=== PATIENT | male | born 1960 | race Hispanic/Latino ===

== ENCOUNTER 2024-06-10 14:29 | Inpatient (IN) | payer BC, MEDICARE ==
[~2024-06-10] VITALS: Ht 172.7 cm; Wt 58.4 kg
[~2024-06-10 14:29] MED LIST: AMLO-257 PO; AMOX-426 PO; METO5TAB87 PO
[2024-06-10 15:01] LABS: BASOPHILS # (AUTO) 0.05 K/uL (0.00-0.20); BASOPHILS % (AUTO) 0.4 % (0.0-5.0); EOSINOPHILS # (AUTO) 0.02 K/uL (0.00-0.70); EOSINOPHILS % (AUTO) 0.2 % (0.0-8.0); HEMATOCRIT 36.4 % (42-54); IMMATURE GRANULOCYTE ABSOLUTE 0.06 K/uL (0-1); LYMPHOCYTES # (AUTO) 0.6 K/uL (1.0-4.8); LYMPHOCYTES % (AUTO) 4.7 % (21.0-51.0); MEAN CORPUSCULAR HEMOGLOBIN 22.2 pg (27.0-33.0); MEAN CORPUSCULAR HGB CONC 30.8 g/dL (32.0-36.0); MEAN CORPUSCULAR VOLUME 72.2 fL (79-99); MONOCYTES # (AUTO) 1.2 K/uL (0.1-1.0); MONOCYTES % (AUTO) 9.9 % (3.0-13.0); NEUTROPHILS # (AUTO) 10.3 K/uL (1.8-7.7); NEUTROPHILS % (AUTO) 84.3 % (40.0-77.0); PLATELET COUNT (AUTO) 272 K/uL (130-400); RED BLOOD CELL COUNT(AUTO) 5.04 MIL/uL (4.50-6.20); RED CELL DISTRIBUTION WIDTH 19.4 % (11.0-15.5); WHITE BLOOD COUNT (AUTO) 12.2 K/uL (4.8-10.8)
[2024-06-10 15:09] LABS: ABG BASE EXCESS -0.6 mmol/L (-2.0-3.0); ABG HCO3 23.5 mmol/L (21.0-28.0); ABG OXYGEN SATURATION 88.8 % (95.0-99.0); ABG PCO2 37 mmHg (35-48); ABG PH 7.419 (7.35-7.450); VENT MODE, BG RA (ROOM AIR)
[2024-06-10 15:11] LABS: CARBON DIOXIDE 28 mmol/L (21-32); CHLORIDE 105 mmol/L (101-111); CREATININE 1.7 mg/dL (0.5-1.3); GLOMERULAR FILTR. RATE CALC 44 mL/min (>90); GLUCOSE,RANDOM 308 mg/dL (70-105); POTASSIUM 4.4 mmol/L (3.5-5.1); SODIUM SERUM 140 mmol/L (136-145); UREA NITROGEN, BLOOD 37 mg/dL (7-18)
[2024-06-10] MEDS: IPRATROPIUM/ALBUTEROL SULFATE 3 ML SOLUTION IH ONE (15:15)
[2024-06-10 15:16] VITALS: PULSE 108; RESP 24
[2024-06-10 15:16] LABS: ALANINE AMINOTRANSFERASE 11 U/L (12-78); ALBUMIN 2.5 g/dL (3.5-5.0); ALCOHOL, BLOOD < 3 mg/dL (0-10); ASPARTATE AMINOTRANSFERASE 15 U/L (10-37); BILIRUBIN,TOTAL 0.5 mg/dL (0.2-1.0); TOTAL PROTEIN, SERUM 7.1 g/dL (6.0-8.3)
[2024-06-10 15:45] LABS: SARS-CoV-2, RNA, NAAT NEGATIVE SARS CoV-2 (NEGATIVE)
[2024-06-10 15:48] LABS: B-TYPE NATRIURETIC PEPTIDE 1800 pg/mL (0-100)
[2024-06-10 15:49] LABS: INFLUENZA TYPE A Negative For Type A (NEGATIVE); INFLUENZA TYPE B Negative For Type B (NEGATIVE)
[2024-06-10] MEDS: SOLU-MEDROL 125MG VIAL IVP ONE (16:16)
[2024-06-10] MEDS: 0.9% NACL 500ML IV.SOLN 500 ML IV ONE (16:16)
[2024-06-10] MEDS: CEFTRIAXONE 1G VIAL IVPB ONE (16:16)
[2024-06-10] MEDS: CEFTRIAXONE 1G VIAL IVPB SCH (17:30)
[2024-06-10] MEDS ORDERED: IOHEXOL 350 MG/ML 100ML INFUS..BTL IV ONE (17:30)
[2024-06-10] MEDS: HEPARIN 5,000 UNIT VIAL SQ SCH (18:33)
[2024-06-10] MEDS: FUROSEMIDE 40MG VIAL IV ONE (20:55)
[2024-06-10] MEDS: DOXYCYCLINE HYCLATE 100 MG TABLET PO SCH (20:55)
[2024-06-10 21:20] VITALS: BP 141/92; PULSE 125; RESP 22
[2024-06-10 22:00] VITALS: O2SAT 95
[2024-06-11] VITALS (16 sets, daily range): BP systolic 115–151; BP diastolic 52–111; PULSE 102–128; RESP 16–22; O2SAT 94
[2024-06-11 03:42] LABS: BASOPHILS # (AUTO) 0.01 K/uL (0.00-0.20); BASOPHILS % (AUTO) 0.1 % (0.0-5.0); HEMATOCRIT 37.8 % (42-54); IMMATURE GRANULOCYTE ABSOLUTE 0.05 K/uL (0-1); LYMPHOCYTES # (AUTO) 0.5 K/uL (1.0-4.8); LYMPHOCYTES % (AUTO) 5.1 % (21.0-51.0); MEAN CORPUSCULAR HEMOGLOBIN 22.4 pg (27.0-33.0); MEAN CORPUSCULAR HGB CONC 30.2 g/dL (32.0-36.0); MEAN CORPUSCULAR VOLUME 74.1 fL (79-99); MONOCYTES # (AUTO) 0.3 K/uL (0.1-1.0); MONOCYTES % (AUTO) 3.5 % (3.0-13.0); NEUTROPHILS % (AUTO) 90.7 % (40.0-77.0); PLATELET COUNT (AUTO) 247 K/uL (130-400); RED CELL DISTRIBUTION WIDTH 19.6 % (11.0-15.5); WHITE BLOOD COUNT (AUTO) 8.8 K/uL (4.8-10.8)
[2024-06-11 03:50] LABS: CREATININE 1.8 mg/dL (0.5-1.3); POTASSIUM 4.4 mmol/L (3.5-5.1)
[2024-06-11] MEDS ORDERED: ASPI-1005 PO (04:14)
[2024-06-11] MEDS ORDERED: FURO40TA5 PO (04:14)
[2024-06-11] MEDS: INSULIN LISPRO 100 UNIT/ML 3ML SQ SCH (06:36)
[2024-06-11] MEDS ORDERED: HYDRALAZINE 20MG/ML VIAL IV PRN (07:00)
[2024-06-11] MEDS ORDERED: ALBUTEROL 0.083% 2.5 MG/3 ML INH IH PRN (07:00)
[2024-06-11] MEDS ORDERED: DOCUSATE SODIUM 100 MG CAP PO PRN (07:00)
[2024-06-11] MEDS ORDERED: LACTULOSE 20 GM/30 ML UDCUP PO PRN (07:00)
[2024-06-11] MEDS ORDERED: LABETALOL 20MG SYG IV PRN (07:30)
[2024-06-11] MEDS ORDERED: FUROSEMIDE 40MG VIAL IV SCH (08:00)
[2024-06-11] MEDS: FUROSEMIDE 40MG VIAL IV SCH (09:00)
[2024-06-11 09:21] LABS: INR 1.06 (0.85-1.15); PROTHROMBIN TIME 11.4 SEC (9.6-11.6)
[2024-06-11 09:22] LABS: PARTIAL THROMBOPLASTIN TIME 28.9 SEC (26.3-35.5)
[2024-06-11] MEDS: PANTOPRAZOLE 40 MG TAB DR PO SCH (09:24)
[2024-06-11] MEDS: LOSARTAN 50 MG TABLET PO SCH (09:24)
[2024-06-11] MEDS: SODIUM CHLORIDE 3% FOR INHALATION 4 ML/AMP VIAL.NEB IH ONE (11:41)
[2024-06-11 16:30] LABS: GLUCOSE PLEURAL FLUID 200; PROTEIN PLEURAL FLUID 4.2 mg/dL
[2024-06-11 16:39] LABS: BODY FLUID RBC 8886 /cu. mm.; BODY FLUID WBC 785 /cu. mm.
[2024-06-11] MEDS: CEFTRIAXONE 2GM VIAL IVPB SCH (17:50)
[2024-06-11 18:12] LABS: BF LYMPHOCYTE 73 %; BF MACROPHAGE 7; BF TOTAL CELLS COUNTED 100
[2024-06-11 18:16] LABS: APPEARANCE BODY FLUID SLIGHTLY CLOUDY (CLEAR); COLOR,BODY FLUID YELLOW (LT YELLOW); SPECIMENTYPE,BODY FLUID PLEURAL; TOTAL VOLUME,BODY FLUID 1500 mL
[2024-06-11 18:19] LABS: PH PLEURAL FLUID 7
[2024-06-11] MEDS: HYDRALAZINE 25MG TABLET PO SCH (21:20)
[2024-06-11] MEDS: TEMAZEPAM 15 MG CAPSULE PO PRN (21:26)
[2024-06-12] VITALS (18 sets, daily range): BP systolic 88–154; BP diastolic 50–94; PULSE 78–109; RESP 11–27; O2SAT 98–100
[2024-06-12 03:51] LABS: BASOPHILS # (AUTO) 0.02 K/uL (0.00-0.20); BASOPHILS % (AUTO) 0.1 % (0.0-5.0); EOSINOPHILS # (AUTO) 0.03 K/uL (0.00-0.70); EOSINOPHILS % (AUTO) 0.2 % (0.0-8.0); HEMATOCRIT 36.1 % (42-54); IMMATURE GRANULOCYTE ABSOLUTE 0.05 K/uL (0-1); LYMPHOCYTES # (AUTO) 1.2 K/uL (1.0-4.8); LYMPHOCYTES % (AUTO) 8.6 % (21.0-51.0); MEAN CORPUSCULAR HEMOGLOBIN 22.4 pg (27.0-33.0); MEAN CORPUSCULAR HGB CONC 31.3 g/dL (32.0-36.0); MEAN CORPUSCULAR VOLUME 71.5 fL (79-99); MONOCYTES # (AUTO) 1.1 K/uL (0.1-1.0); MONOCYTES % (AUTO) 8.3 % (3.0-13.0); NEUTROPHILS # (AUTO) 11.1 K/uL (1.8-7.7); NEUTROPHILS % (AUTO) 82.4 % (40.0-77.0); PLATELET COUNT (AUTO) 271 K/uL (130-400); RED BLOOD CELL COUNT(AUTO) 5.05 MIL/uL (4.50-6.20); RED CELL DISTRIBUTION WIDTH 19.1 % (11.0-15.5); WHITE BLOOD COUNT (AUTO) 13.5 K/uL (4.8-10.8)
[2024-06-12 04:12] LABS: CREATININE 1.7 mg/dL (0.5-1.3); MAGNESIUM 1.6 mg/dL (1.80-2.40); POTASSIUM 3.7 mmol/L (3.5-5.1); TOTAL PROTEIN, SERUM 6.1 g/dL (6.0-8.3)
[2024-06-12 04:54] LABS: B-TYPE NATRIURETIC PEPTIDE 954 pg/mL (0-100)
[2024-06-12] MEDS ORDERED: POTASSIUM CHLORIDE 10MEQ/100ML 100 ML IV PRN ×2 (05:30)
[2024-06-12] MEDS ORDERED: POTASSIUM CHLORIDE 10% ELIXIR 20 MEQ/15 ML UDCUP PO PRN (05:30)
[2024-06-12] MEDS: MAGNESIUM 2GM PREMIX 50ML 50 ML IV PRN (05:56)
[2024-06-12] MEDS: KCL 20 MEQ ERTAB PO PRN (05:57)
[2024-06-12] MEDS ORDERED: POTASSIUM CHLORIDE 10MEQ SR TAB PO PRN (07:30)
[2024-06-12] MEDS: METOPROLOL TARTRATE 50 MG TAB PO SCH (08:19)
[2024-06-12] MEDS: METOPROLOL TARTRATE 1 MG/ML 5ML VIAL IV ONE (08:19)
[2024-06-12] MEDS: APIXABAN 2.5 MG TABLET PO SCH (08:23)
[2024-06-12 11:59] LABS: HEMATOCRIT 38.8 % (42-54)
[2024-06-12] MEDS: ONDANSETRON 4MG INJ IVP PRN (13:40)
[2024-06-12] MEDS ORDERED: PHARMACY COMMUNICATION MISC SCH (14:30)
[2024-06-12] MEDS ORDERED: COMPOUND PO MISCELLANEOUS 1 EACH MISC MISC PRN (14:30)
[2024-06-12] MEDS: LIDO 2% VISC 30ML+MAG/AL/SIMETH 30ML+DICYCLOMINE 20MG 10ML PO PRN (14:36)
[2024-06-12 15:28] LABS: HEMATOCRIT 38.8 % (42-54)
[2024-06-12] MEDS ORDERED: ONDANSETRON 4MG INJ IV PRN (17:00)
[2024-06-12] MEDS ORDERED: LORAZEPAM 2 MG/ML 1 ML VIAL IVP PRN (17:00)
[2024-06-12] MEDS ORDERED: CHLORDIAZEPOXIDE HCL 25 MG CAP PO PRN (17:00)
[2024-06-12] MEDS ORDERED: ACETAMINOPHEN 500 MG TABLET PO PRN (17:00)
[2024-06-12] MEDS ORDERED: PROMETHAZINE HCL 25 MG TABLET PO PRN (17:00)
[2024-06-12] MEDS ORDERED: PHARMACY COMMUNICATION MISC PRN (17:00)
[2024-06-12] MEDS: LORAZEPAM 2 MG/ML 1 ML VIAL IVP PRN (17:20)
[2024-06-12 20:00] LABS: HEMATOCRIT 39.6 % (42-54)
[2024-06-12 20:29] LABS: CREATININE 1.9 mg/dL (0.5-1.3); POTASSIUM 4.2 mmol/L (3.5-5.1)
[2024-06-12 20:36] LABS: MAGNESIUM 1.7 mg/dL (1.80-2.40)
[2024-06-12 21:13] LABS: APPEARANCE,URINE CLEAR (CLEAR); BILIRUBIN,URINE NEGATIVE (NEGATIVE); COLOR,URINE LIGHT-YELLOW (YELLOW); GLUCOSE, URINE (UA) NEGATIVE (NEGATIVE); KETONES,URINE NEGATIVE (NEGATIVE); LEUKOCYTE ESTERASE ,URINE NEGATIVE Leu/uL (NEGATIVE); NITRATE,URINE NEGATIVE (NEGATIVE); OCCULT BLOOD,URINE NEGATIVE (NEGATIVE); PROTEIN,URINE 50 mg/dL (NEGATIVE); UROBILINOGEN,URINE 0.2 mg/dL (0.2-1.0)
[2024-06-12] MEDS: DEXMEDETOMIDINE 400MCG/NS100ML IV SCH (21:19)
[2024-06-12 21:20] LABS: ADD UA MICROSCOPIC YES
[2024-06-12 21:25] LABS: MUCUS,URINE RARE LPF (None Seen); RBC,URINE 0-1 /HPF (0-1); SQUAMOUS EPITHELIAL CELL,UR RARE /HPF (0-2); WBC,URINE 0-1 /HPF (0-1)
[2024-06-12 22:45] LABS: AMPHET/METH SCREEN,URINE NEGATIVE (NEGATIVE); BARBITURATE SCREEN, URINE NEGATIVE (NEGATIVE); BENZODIAZEPINES SCREEN,URINE NEGATIVE (NEGATIVE); CANNABINOID SCREEN,URINE NEGATIVE (NEGATIVE); COCAINE SCREEN,URINE POSITIVE (NEGATIVE); OPIATE SCREEN,URINE NEGATIVE (NEGATIVE); PHENCYCLIDINE SCREEN,URINE NEGATIVE (NEGATIVE)
[2024-06-13] VITALS (106 sets, daily range): BP systolic 75–129; BP diastolic 39–75; PULSE 74–96; RESP 9–32; O2SAT 99–100
[2024-06-13 04:14] LABS: BASOPHILS # (AUTO) 0.01 K/uL (0.00-0.20); BASOPHILS % (AUTO) 0.1 % (0.0-5.0); EOSINOPHILS # (AUTO) 0.01 K/uL (0.00-0.70); EOSINOPHILS % (AUTO) 0.1 % (0.0-8.0); HEMATOCRIT 37.7 % (42-54); IMMATURE GRANULOCYTE ABSOLUTE 0.05 K/uL (0-1); LYMPHOCYTES # (AUTO) 0.7 K/uL (1.0-4.8); LYMPHOCYTES % (AUTO) 5.8 % (21.0-51.0); MEAN CORPUSCULAR HEMOGLOBIN 22.1 pg (27.0-33.0); MEAN CORPUSCULAR HGB CONC 31.3 g/dL (32.0-36.0); MEAN CORPUSCULAR VOLUME 70.5 fL (79-99); MONOCYTES # (AUTO) 0.8 K/uL (0.1-1.0); MONOCYTES % (AUTO) 6.5 % (3.0-13.0); NEUTROPHILS % (AUTO) 87.1 % (40.0-77.0); PLATELET COUNT (AUTO) 224 K/uL (130-400); RED BLOOD CELL COUNT(AUTO) 5.35 MIL/uL (4.50-6.20); RED CELL DISTRIBUTION WIDTH 19.1 % (11.0-15.5); WHITE BLOOD COUNT (AUTO) 12.6 K/uL (4.8-10.8)
[2024-06-13 04:33] LABS: CREATININE 1.9 mg/dL (0.5-1.3); MAGNESIUM 2.3 mg/dL (1.80-2.40); PHOSPHORUS 4.5 mg/dL (2.5-4.9); POTASSIUM 4.1 mmol/L (3.5-5.1)
[2024-06-13 04:36] LABS: B-TYPE NATRIURETIC PEPTIDE 1430 pg/mL (0-100)
[2024-06-13] MEDS: 0.9%NACL 1000ML 1,000 ML IV SCH (06:45)
[2024-06-13] MEDS: THIAMINE HCL 100 MG/ML 2ML VIAL IV SCH (08:16)
[2024-06-13] MEDS ORDERED: NOREPINEPHRIN 4MG/NS 250ML 250 ML IV SCH (09:00)
[2024-06-13] MEDS: FOLIC ACID 1 MG TABLET PO SCH (09:00)
[2024-06-13] MEDS: MULTIVITAMIN TABLET PO SCH (09:00)
[2024-06-13] MEDS ORDERED: FUROSEMIDE 40MG VIAL IV SCH (09:00)
[2024-06-13] MEDS: M.V.I. IV [ADULT] 10 ML, FOLIC ACID 1 MG, THIAMINE HCL 100 MG in 0.9%NACL 1000ML 1,000 ML IV SCH (09:29)
[2024-06-13] MEDS ORDERED: PHENYLEPHRINE HCL 10 MG in 0.9% NACL 250ML 250 ML IV PRN (09:30)
[2024-06-13 09:34] LABS: ABG BASE EXCESS 3.3 mmol/L (-2.0-3.0); ABG HCO3 27.7 mmol/L (21.0-28.0); ABG OXYGEN SATURATION 93.8 % (95.0-99.0); ABG PCO2 42 mmHg (35-48); ABG PH 7.443 (7.35-7.450); CARBON MONOXIDE 0.2; DEVICE COMMENT RB; HHb 6.2; PO2, ARTERIAL BG 75.1 mmHg (83.0-108.0); VENT MODE, BG ROOM AIR (ROOM AIR)
[2024-06-13] MEDS: ZOSYN 3.375GM +NS 50ML IV SCH (10:30)
[2024-06-13] MEDS ORDERED: COMPOUND IV MISC 1 EACH IVSOLN MISC PRN (11:30)
[2024-06-13] MEDS ORDERED: COMPOUND IV REFRIGERATED 1 EACH IVSOLN MISC PRN ×2 (11:30→12:30)
[2024-06-13] MEDS: DOXYCYCLINE 100MG+NS 250ML 250 ML IV SCH (17:02)
[2024-06-13] MEDS: HEPARIN 5,000 UNIT VIAL SQ SCH (17:04)
[2024-06-13] MEDS: MIDODRINE HCL 5 MG TABLET PO SCH (20:09)
[2024-06-14] VITALS (13 sets, daily range): BP systolic 125–142; BP diastolic 71–97; PULSE 60–92; RESP 18–22; O2SAT 99–100
[2024-06-14 04:58] LABS: BASOPHILS # (AUTO) 0.06 K/uL (0.00-0.20); BASOPHILS % (AUTO) 0.6 % (0.0-5.0); HEMATOCRIT 36.3 % (42-54); IMMATURE GRANULOCYTE ABSOLUTE 0.05 K/uL (0-1); LYMPHOCYTES # (AUTO) 1.2 K/uL (1.0-4.8); LYMPHOCYTES % (AUTO) 11.4 % (21.0-51.0); MEAN CORPUSCULAR HEMOGLOBIN 22.3 pg (27.0-33.0); MEAN CORPUSCULAR HGB CONC 30.9 g/dL (32.0-36.0); MEAN CORPUSCULAR VOLUME 72.2 fL (79-99); MONOCYTES # (AUTO) 0.9 K/uL (0.1-1.0); MONOCYTES % (AUTO) 8.3 % (3.0-13.0); NEUTROPHILS # (AUTO) 8.1 K/uL (1.8-7.7); NEUTROPHILS % (AUTO) 78.2 % (40.0-77.0); PLATELET COUNT (AUTO) 231 K/uL (130-400); RED BLOOD CELL COUNT(AUTO) 5.03 MIL/uL (4.50-6.20); RED CELL DISTRIBUTION WIDTH 18.9 % (11.0-15.5); WHITE BLOOD COUNT (AUTO) 10.3 K/uL (4.8-10.8)
[2024-06-14 05:10] LABS: CREATININE 1.7 mg/dL (0.5-1.3); MAGNESIUM 2.2 mg/dL (1.80-2.40); PHOSPHORUS 3.6 mg/dL (2.5-4.9)
[2024-06-14 06:14] LABS: B-TYPE NATRIURETIC PEPTIDE 841 pg/mL (0-100)
[2024-06-14] MEDS: IPRATROPIUM 0.5 MG/2.5 ML INH IH PRN (13:07)
[2024-06-14] MEDS ORDERED: LORAZEPAM 2 MG/ML 1 ML VIAL IVP PRN (19:00)
[2024-06-15] VITALS (9 sets, daily range): BP systolic 124–134; BP diastolic 64–74; PULSE 48–98; RESP 18–20; O2SAT 90–96
[2024-06-15 04:08] LABS: HEMATOCRIT 38.7 % (42-54); MEAN CORPUSCULAR HGB CONC 30.7 g/dL (32.0-36.0); MEAN CORPUSCULAR VOLUME 71.5 fL (79-99); RED BLOOD CELL COUNT(AUTO) 5.41 MIL/uL (4.50-6.20); RED CELL DISTRIBUTION WIDTH 19.6 % (11.0-15.5); WHITE BLOOD COUNT (AUTO) 7.8 K/uL (4.8-10.8)
[2024-06-15 04:29] LABS: BILIRUBIN,TOTAL 0.4 mg/dL (0.2-1.0); CREATININE 1.4 mg/dL (0.5-1.3); MAGNESIUM 2.1 mg/dL (1.80-2.40); POTASSIUM 4.2 mmol/L (3.5-5.1)
[2024-06-15] MEDS: ALPRAZOLAM 0.5 MG TABLET PO PRN (15:01)
[2024-06-16] VITALS (23 sets, daily range): BP systolic 100–179; BP diastolic 50–92; PULSE 48–96; RESP 16–20; O2SAT 95–99
[2024-06-16 03:30] LABS: MEAN CORPUSCULAR HEMOGLOBIN 22.2 pg (27.0-33.0); MEAN CORPUSCULAR HGB CONC 30.3 g/dL (32.0-36.0); MEAN CORPUSCULAR VOLUME 73.4 fL (79-99); RED BLOOD CELL COUNT(AUTO) 5.04 MIL/uL (4.50-6.20); WHITE BLOOD COUNT (AUTO) 6.5 K/uL (4.8-10.8)
[2024-06-16 03:42] LABS: CREATININE 1.3 mg/dL (0.5-1.3); POTASSIUM 4.3 mmol/L (3.5-5.1)
[2024-06-16] MEDS: DEXTROSE 50%-WATER 50 ML DISP.SYRIN IV ONE (06:05)
[2024-06-16] MEDS ORDERED: LIDOCAINE PF 100MG/5ML (2%) SYRINGE 5ML ONE (12:53)
[2024-06-16] MEDS ORDERED: PROPOFOL 10 MG/ML 20ML VIAL IV ONE (12:53)
[2024-06-16] MEDS: SILVER NITRATE APPLICATOR 1 SWAB TP SCH (14:00)
[2024-06-16] MEDS: ACETAMINOPHEN 325 MG TAB PO PRN (15:28)
[2024-06-16] MEDS: HYDROCODONE/ACETAMINOPHEN 5/325 MG TAB PO PRN (16:49)
[2024-06-16] MEDS ORDERED: GLUCAGON 1MG KIT 1 MG ML IM PRN (19:00)
[2024-06-16] MEDS: LANSOPRAZOLE 15 MG SOLU TAB PEG SCH (21:34)
[2024-06-17] VITALS (8 sets, daily range): BP systolic 132–160; BP diastolic 74–89; PULSE 67–101; RESP 16–20; O2SAT 99
[2024-06-17] MEDS: INSULIN LISPRO 100 UNIT/ML 3ML SQ SCH
[2024-06-17] MEDS: DEXTROSE 50%-WATER 50 ML DISP.SYRIN IV PRN (00:10)
[2024-06-17 03:46] LABS: HEMATOCRIT 37.8 % (42-54); MEAN CORPUSCULAR HEMOGLOBIN 21.8 pg (27.0-33.0); MEAN CORPUSCULAR HGB CONC 30.2 g/dL (32.0-36.0); MEAN CORPUSCULAR VOLUME 72.3 fL (79-99); RED BLOOD CELL COUNT(AUTO) 5.23 MIL/uL (4.50-6.20); RED CELL DISTRIBUTION WIDTH 19.1 % (11.0-15.5); WHITE BLOOD COUNT (AUTO) 7.8 K/uL (4.8-10.8)
[2024-06-17 04:21] LABS: ALBUMIN 2.1 g/dL (3.5-5.0); BILIRUBIN,TOTAL 0.4 mg/dL (0.2-1.0); CREATININE 1.4 mg/dL (0.5-1.3); MAGNESIUM 2.1 mg/dL (1.80-2.40); THYROID STIMULATING HORMONE 2.29 uIU/mL (0.36-3.74)
[2024-06-17] MEDS: APIXABAN 2.5 MG TABLET PO SCH (20:32)
[2024-06-17] MEDS ORDERED: APIXABAN 2.5 MG TABLET PO SCH (21:00)
[2024-06-17] MEDS: HYDROCODONE/ACETAMINOPHEN 5/325 MG TAB PO PRN (21:12)
[2024-06-17] MEDS: CHLORDIAZEPOXIDE HCL 25 MG CAP PO PRN (22:53)
[2024-06-18 04:02] VITALS: BP 145/74; PULSE 79; RESP 20
[2024-06-18 04:05] LABS: HEMATOCRIT 35.6 % (42-54); MEAN CORPUSCULAR HEMOGLOBIN 21.6 pg (27.0-33.0); MEAN CORPUSCULAR HGB CONC 30.3 g/dL (32.0-36.0); MEAN CORPUSCULAR VOLUME 71.2 fL (79-99); PLATELET COUNT (AUTO) 167 K/uL (130-400); WHITE BLOOD COUNT (AUTO) 6.4 K/uL (4.8-10.8)
[2024-06-18 04:19] LABS: CREATININE 1.3 mg/dL (0.5-1.3); MAGNESIUM 1.9 mg/dL (1.80-2.40); POTASSIUM 4.1 mmol/L (3.5-5.1)
[2024-06-18] MEDS: APIXABAN 5 MG TABLET PO SCH (07:36)
[2024-06-18 08:00] VITALS: O2SAT 99
[2024-06-18 08:13] VITALS: BP 133/63; PULSE 83; RESP 18
[2024-06-18 12:39] VITALS: BP 117/68; PULSE 91; RESP 18
[2024-06-18 16:00] VITALS: BP 152/70; PULSE 48; RESP 18
[2024-06-18 20:00] VITALS: BP 150/76; PULSE 53; RESP 18
[2024-06-19 00:30] VITALS: BP 134/74; PULSE 59; RESP 18
[2024-06-19 03:42] LABS: HEMATOCRIT 36.9 % (42-54); MEAN CORPUSCULAR HEMOGLOBIN 22.1 pg (27.0-33.0); MEAN CORPUSCULAR HGB CONC 30.9 g/dL (32.0-36.0); MEAN CORPUSCULAR VOLUME 71.4 fL (79-99); RED BLOOD CELL COUNT(AUTO) 5.17 MIL/uL (4.50-6.20); RED CELL DISTRIBUTION WIDTH 19.3 % (11.0-15.5); WHITE BLOOD COUNT (AUTO) 7.7 K/uL (4.8-10.8)
[2024-06-19 04:04] LABS: CREATININE 1.3 mg/dL (0.5-1.3); MAGNESIUM 2.2 mg/dL (1.80-2.40); POTASSIUM 4.4 mmol/L (3.5-5.1)
[2024-06-19 04:30] VITALS: BP 142/80; PULSE 52; RESP 18
[2024-06-19 08:07] VITALS: BP 127/78; PULSE 71; RESP 18
[2024-06-19 08:33] VITALS: O2SAT 100
[2024-06-19 12:14] VITALS: BP 146/75; PULSE 97; RESP 18
== END 2024-06-19 16:00 | DRG 871 ==
LOC: EDH 14:29 → EDHIP 17:16 → 2AH 21:10 → 2BH 06-12 18:56 → 2DH 06-13 23:38 → 2BH 06-13 23:47 → 2DH 06-14 00:15
PROVIDERS: ADMIT Internal Medicine Infectious Disease; ATTEND Internal Medicine Infectious Disease
PROC: 0W9B3ZZ Drainage of Left Pleural Cavity, Percutaneous Approach (ICD-10-PCS; 2024-06-11)
PROC: 0DH63UZ Insertion of Feeding Device into Stomach, Percutaneous Approach (ICD-10-PCS; principal; 2024-06-16)
DX: A41.9 Sepsis, unspecified organism (principal); I50.43 Acute on chronic combined systolic (congestive) and diastolic (congestive) heart failure; J96.21 Acute and chronic respiratory failure with hypoxia; J69.0 Pneumonitis due to inhalation of food and vomit; J98.11 Atelectasis; N17.9 Acute kidney failure, unspecified; E87.3 Alkalosis; E46 Unspecified protein-calorie malnutrition; F03.94 Unspecified dementia, unspecified severity, with anxiety; F14.23 Cocaine dependence with withdrawal; I13.0 Hypertensive heart and chronic kidney disease with heart failure and stage 1 through stage 4 chronic kidney disease, or unspecified chronic kidney disease; I47.19 Other supraventricular tachycardia; I48.92 Unspecified atrial flutter; Z68.1 Body mass index [BMI] 19.9 or less, adult; J91.8 Pleural effusion in other conditions classified elsewhere; R18.8 Other ascites; Z20.822 Contact with and (suspected) exposure to COVID-19; R65.20 Severe sepsis without septic shock; E11.65 Type 2 diabetes mellitus with hyperglycemia; N18.32 Chronic kidney disease, stage 3b; E11.22 Type 2 diabetes mellitus with diabetic chronic kidney disease; D63.1 Anemia in chronic kidney disease; E88.09 Other disorders of plasma-protein metabolism, not elsewhere classified; D72.829 Elevated white blood cell count, unspecified; E11.51 Type 2 diabetes mellitus with diabetic peripheral angiopathy without gangrene; Z79.899 Other long term (current) drug therapy; K29.70 Gastritis, unspecified, without bleeding; D50.9 Iron deficiency anemia, unspecified; D63.8 Anemia in other chronic diseases classified elsewhere; E78.00 Pure hypercholesterolemia, unspecified; I48.91 Unspecified atrial fibrillation; Z63.4 Disappearance and death of family member; Z79.01 Long term (current) use of anticoagulants; Z83.3 Family history of diabetes mellitus; Z93.1 Gastrostomy status; K20.90 Esophagitis, unspecified without bleeding
CPT/HCPCS: 10030; 36415; 36600; 43246; 70450; 71045; 71046; 71250; 71270; 74230; 76775; 76942; 80048; 80053; 80305; 81001; 82435; 82803; 82945; 82947; 82948; 83036; 83605; 83615; 83735; 83880; 83986; 84100; 84132; 84145; 84155; 84157; 84295; 84439; 84443; 84481; 84484; 85014; 85018; 85025; 85027; 85378; 85610; 85730; 87071; 87116; 87205; 87206; 87635; 87804; 88112; 88305; 89051; 92507; 92610; 92611; 93005; 93306; 93356; 93970; 94640; A4606; G0378; J0696; J1644; J1940; J2001; J2060; J2405; J2543; J2704; J2919; J3411; J3475; J3490; J7030; J7040; J7070; Q9967; A4215; A4222; A4223; A4620; A4657; A7002; C1729; C1769

== ENCOUNTER 2024-09-10 22:00 | Inpatient (IN) | payer MEDICARE ==
[~2024-09-10] VITALS: Ht 175.3 cm; Wt 57.2 kg
[~2024-09-10 22:00] MED LIST changes: +AMIN30LI28 PO; -AMLO-257 PO; -AMOX-426 PO; +APIX5TAB PO; +CALA177S9 TP; +CLOT15CR23 TP; +DOCU100C33 PO; +FERS325 PO; +MELA5CAP PO; +METO-408 PO; -METO5TAB87 PO; +MULT-1367 PO; +MUPI15CR12 TP; +OMEP40CA21 PO; +SIME80TA12 PO; +[UNRECOGNIZED DRUG - CODE] PO
[2024-09-10] MEDS ORDERED: LACTATED RINGERS 1000ML 1,000 ML IV ONE (22:30)
[2024-09-10 22:43] LABS: IMMATURE GRANULOCYTE ABSOLUTE 0.02 K/uL (0-1); LYMPHOCYTES # (AUTO) 0.2 K/uL (1.0-4.8); LYMPHOCYTES % (AUTO) 5.8 % (21.0-51.0); MEAN CORPUSCULAR HGB CONC 35.8 g/dL (32.0-36.0); MEAN CORPUSCULAR VOLUME 78.2 fL (79-99); MONOCYTES # (AUTO) 0.4 K/uL (0.1-1.0); MONOCYTES % (AUTO) 15.9 % (3.0-13.0); NEUTROPHILS % (AUTO) 77.5 % (40.0-77.0); PLATELET COUNT (AUTO) 81 K/uL (130-400); RED BLOOD CELL COUNT(AUTO) 2.61 MIL/uL (4.50-6.20); RED CELL DISTRIBUTION WIDTH 15.4 % (11.0-15.5); WHITE BLOOD COUNT (AUTO) 2.6 K/uL (4.8-10.8)
[2024-09-10 22:50] LABS: HEMATOCRIT 20.4 % (42-54)
[2024-09-10 22:55] LABS: CREATININE 1.9 mg/dL (0.5-1.3); POTASSIUM 4.7 mmol/L (3.5-5.1)
[2024-09-10 23:25] LABS: B-TYPE NATRIURETIC PEPTIDE 2350 pg/mL (0-100)
[2024-09-10 23:43] LABS: BAND NEUTROPHILS % (MANUAL) 33 % (0-2); LYMPHOCYTES % (MANUAL) 13 % (22-44); METAMYELOCYTES % 8 % (0-0); MONOCYTES % (MANUAL) 8 % (2-9); SEGMENTED NEUTROPHILS % 38 % (40-70); TOTAL CELLS COUNTED 100
--- NOTE | 2024-09-10 23:51 | ERN ---
General Chief Complaint: Shortness of Breath Stated Complaint: SOB Time Seen by MD: 22:04 History of Present Illness Initial Comments Mr Link is a 64-year-old male significant past medical history of iron deficiency anemia, calcium deficiency, insomnia, GERD, chronic dysphagia who presents today with here with shortness of breath. Patient was from the [facility] and has a history of aspiration. Patient apparently drank some water in had worsening work of breathing tonight. Patient apparently had EMS called after he was found to have sats in the 70s. Patient upon presentation had a sodium of 108 and an elevated troponin. Patient's chest x-ray looks he has by hilar upper and lower infiltrates Allergies: Coded Allergies: No Known Allergies (Verified Allergy, Unknown, 12/08/14) sucralfate (Unverified Allergy, Unknown, 09/10/24) Home Meds Reported Medications Multivitamin (Multivitamin) 1 Each Tablet, 1 EACH PO DAILY, TAB 08/17/24 Calamine/Zinc Oxide (Calamine Lotion) 8 %-8 % Lotion, 177 ML TP Q12H, APPL 08/17/24 Apixaban (Eliquis) 5 Mg Tablet, 5 MG PO Q12H, TAB 08/17/24 Clotrimazole (Clotrimazole) 1 % Cream..g., 15 GM TP DAILY 08/17/24 Ferrous Sulfate (Ferrous Sulfate) 325 Mg (65 Mg Iron) Ectab, 325 MG PO DAILY, TAB.EC 08/17/24 Calcium/D3/Mag Ox/Foundation Relations Director/Jerry/Zn (Caltrate 432-M1-Ntezdfzd Tab) 600 Mg-20 Tablet, 1 EACH PO DAILY, TAB 08/17/24 Amino Acids/Protein Hydrolys (Pro-Stat Liquid) 15 Gram-100 Kcal/30 Ml Liquid, 30 ML PO TID 08/17/24 Metoprolol Succinate (Metoprolol Succinate) 25 Mg Tab.er.24h, 25 MG PO DAILY, TAB 08/17/24 Docusate Sodium (Docusate Sodium) 100 Mg Capsule, 100 MG PO BID, CAP 08/17/24 Melatonin (Melatonin) 5 Mg Capsule, 5 MG PO HS, CAP 08/17/24 Omeprazole (Omeprazole) 40 Mg Capsule.dr, 40 MG PO DAILY, CAP 08/17/24 Mupirocin Calcium (Mupirocin) 2 % Cream..g., 15 GM TP BID 08/17/24 Simethicone (Simethicone) 80 Mg Tab.chew, 80 MG PO TID, TAB.CHEW 08/17/24 Past Medical History Past Medical History: A-Fib, Alcoholism, CHF, Diabetes-Type II, GERD, High Cholesterol, Hypertension, Renal Disese, Other Medical History Other: NEUROPATHY, COCAINE ABUSE, NICOTINE DEPENDENCE, PVD Past Surgical History: Other Social History Social History: Drugs ROS Dictation Twelve point review of systems can not be done given patient's altered mental status Physical Exam Physical Exam Dictation General: Confused, lethargic Head/Face: Normocephalic, atraumatic Eyes: PERRL ENT: oral cavity clear Neck: Trachea midline, supple Cardiovascular: RRR, normal S1/S2, No MRGs, no JVD Respiratory: CTAB, no respiratory distress, No rales or wheezes Abdomen: Soft, non-tender, non-distended, normal bowel sounds Skin: Warm, dry, normal turgor, no rash MS/Extremity: Pulses equal Neuro: Responds to noxious stimuli, lethargic Results Laboratory and Microbiology Lab and Micro Result Laboratory Tests Test 09/10/24 22:29 White Blood Count 2.6 K/uL (4.8-10.8) L Red Blood Count 2.61 MIL/uL (4.50-6.20) L Hemoglobin 7.3 g/dL (14.0-18.0) L Hematocrit 20.4 % (42-54) *L Mean Corpuscular Volume 78.2 fL (79-99) L Mean Corpuscular Hemoglobin 28.0 pg (27.0-33.0) Mean Corpuscular Hemoglobin Concent 35.8 g/dL (32.0-36.0) Red Cell Distribution Width 15.4 % (11.0-15.5) Platelet Count 81 K/uL (130-400) L Mean Platelet Volume 9.9 fL (7.5-10.5) Immature Granulocyte % (Auto) 0.8 % (0-1) Neutrophils (%) (Auto) 77.5 % (40.0-77.0) H Lymphocytes (%) (Auto) 5.8 % (21.0-51.0) L Monocytes (%) (Auto) 15.9 % (3.0-13.0) H Eosinophils (%) (Auto) 0.0 % (0.0-8.0) Basophils (%) (Auto) 0.0 % (0.0-5.0) Neutrophils # (Auto) 2.0 K/uL (1.8-7.7) Lymphocytes # (Auto) 0.2 K/uL (1.0-4.8) L Monocytes # (Auto) 0.4 K/uL (0.1-1.0) Eosinophils # (Auto) 0.00 K/uL (0.00-0.70) Basophils # (Auto) 0.00 K/uL (0.00-0.20) Absolute Immature Granulocyte (auto 0.02 K/uL (0-1) Nucleated Red Blood Cells 0.0 % (0.0-0.19) Sodium Level 108 mmol/L (136-145) *L Potassium Level 4.7 mmol/L (3.5-5.1) Chloride Level 74 mmol/L (101-111) *L Carbon Dioxide Level 23 mmol/L (21-32) Blood Urea Nitrogen 54 mg/dL (7-18) H Creatinine 1.9 mg/dL (0.5-1.3) H Glomerular Filtration Rate Calc 38 mL/min (>90) Random Glucose 305 mg/dL (70-105) H Total Calcium 8.0 mg/dL (8.5-10.1) L Total Creatine Kinase 73 U/L (21-232) # Troponin I High Sensitivity 85 ng/L (4-75) *H B-Type Natriuretic Peptide 2350 pg/mL (0-100) H MDM Patient will be started on 3% normal saline. Patient will be admitted to the ICU given multiple electrolyte derangements and hypoxic respiratory failure MDM: Differential diagnosis: Hyponatremia Rationale: Tests considered and ordered secondary to shared decision making include: labs, ECG and radiology Previous outside records reviewed: Old ER visits. Risk of complication and/or morbidity or mortality of patient management: None Medications-Per medication reconciliation Need for hospitalization: Patient does meet criteria for hospitalization. Need for emergency major/minor surgery: No There are no social concerns with this patient. Prescription drug management Prescriptions will include symptomatic care Patient's prior external medical records from other ER visits were reviewed by me as indicated. Prior testing and results from previous visits were reviewed. Prior tests were taken into account with medical decision making and resource utilization, independent historian/historians were used to obtain complete medical history. I independently interpreted the test that were performed, results were reviewed by me and considered findings on radiology if ordered. Medical management and examination interpretation discussions were had by me with other qualified healthcare professionals as indicated for the patient's care. ED Course Orders Procedure Category Date Status Time Cbc With Differential LAB 09/10/24 In Process 22:15 B-Type Natriuretic LAB 09/10/24 In Process Peptide 22:15 Cardiac Panel LAB 09/10/24 Complete 22:15 Chest 1vw RAD 09/10/24 Taken 22:15 12 Lead Ekg Tracing- EKG 09/10/24 Logged Technical 22:15 Lactated Ringers PHA 09/10/24 Complete 1000ml (Lactated 22:30 Basic Metabolic Panel LAB 09/10/24 Complete 22:15 Manual Differential LAB 09/10/24 In Process 22:29 Sodium Chloride 3% PHA 09/10/24 In Process (Sodium Chloride 3 %) 23:30 Zosyn 3.375gm+Ns 50ml PHA 09/10/24 In Process (Zosyn 3.375gm+Ns 23:30 Vancomycin 1g/250ml PHA 09/10/24 Complete Kit (Vancomycin 1g/2 23:30 Insulin Regular, PHA 09/11/24 Complete Human 3ml (Humulin R 00:00 Vital Signs(Adult CPOE 09/11/24 Transmitted Hospitalist) 00:22 Nurse To Enter Home CPOE 09/11/24 Transmitted Medication 00:22 Admit Orders ADM 09/11/24 Transmitted 00:22 Critcal Care Consult CONPHYSVC 09/11/24 Transmitted 00:22 Current Medications Medications (Trade) Dose Ordered Sig/Elenita Route PRN Reason Start Time Stop Time Status Last Admin Dose Admin Insulin Human Regular (humuLIN R 100 UNIT/ML 3ML) 10 unit ONCE ONCE SQ 09/11/24 00:00 09/11/24 00:01 DC 09/11/24 00:07 Lactated Ringer's 1,000 ml @ 125 mls/hr ONCE ONCE IV 09/10/24 22:30 09/10/24 23:34 DC Piperacillin Sod/ Tazobactam Sod (Zosyn 3.375gm+NS 50ml) 3.375 gm Q12H IVPB 09/10/24 23:30 09/20/24 23:29 09/11/24 00:16 Sodium Chloride 100 ml @ 0 mls/hr PROTOCOL IV 09/10/24 23:30 10/10/24 23:29 09/10/24 23:52 Vancomycin HCl (Vancomycin 1g/ 250ml Kit) 1 gm ONCE ONCE IV 09/10/24 23:30 09/10/24 23:40 DC 09/10/24 23:52 Vital Signs Date Time Temp Pulse Resp B/P (MAP) Pulse Ox O2 Delivery O2 Flow Rate FiO2 09/10/24 23:42 94 32 120/55 96 Nasal Cannula* 4 36 09/10/24 22:45 98.8 90 26 116/47 98 Non-Rebreather+ 15 100 09/10/24 22:04 99.0 99 20 101/64 95 Nonrebreathing Mask DX & DISP Disposition: Inpatient Departure Impression: Primary Impression: Hyponatremia Additional Impression: Acute hypoxic respiratory failure Condition: Stable Referrals: MARKOS JORGENSEN MD (PCP) SHAHRIAR FRANCO MD Sep 10, 2024 23:51
[2024-09-10] MEDS: VANCOMYCIN KIT 1 GM/250 ML IV.KIT IV ONE (23:52)
[2024-09-10] MEDS: SODIUM CHLORIDE 3% 100 ML IV SCH (23:52)
[2024-09-11] VITALS (37 sets, daily range): BP systolic 105–144; BP diastolic 41–90; PULSE 85–116; RESP 14–29; TEMP 97.2–97.8; O2SAT 94–96
[2024-09-11] MEDS: INSULIN humuLIN R 100 UNIT/ML 3ML SQ ONE (00:07)
[2024-09-11] MEDS: ZOSYN 3.375GM +NS 50ML IVPB SCH (00:16)
[2024-09-11 01:06] LABS: MAN.DIFF COMMENT-IMPRESSION MANUAL DIFFERENTIAL
[2024-09-11 01:07] LABS: PLATELET MORPHOLOGY COMMENT DECREASED; WBC MORPHOLOGY VACUOLATION 1+
[2024-09-11 01:10] LABS: ABG BASE EXCESS -4.5 mmol/L (-2.0-3.0); ABG OXYGEN SATURATION 98.4 % (94.0-98.0); ABG PCO2 29 mmHg (35-48); ABG PH 7.435 (7.350-7.450); CARBON MONOXIDE 0.1 % (0.5-1.5); DEVICE COMMENT RN RR; HHb 1.6; PO2, ARTERIAL BG 129.7 mmHg (83.0-108.0); VENT MODE, BG NRB (ROOM AIR)
[2024-09-11 01:56] LABS: MEAN CORPUSCULAR HGB CONC 36.2 g/dL (32.0-36.0); MEAN CORPUSCULAR VOLUME 77.2 fL (79-99); NUCLEATED RED BLOOD CELLS 0.9 % (0.0-0.19); RED BLOOD CELL COUNT(AUTO) 2.54 MIL/uL (4.50-6.20); RED CELL DISTRIBUTION WIDTH 15.4 % (11.0-15.5); WHITE BLOOD COUNT (AUTO) 2.3 K/uL (4.8-10.8)
[2024-09-11 01:58] LABS: HEMATOCRIT 19.6 % (42-54)
[2024-09-11] MEDS ORDERED: acetaMINOPHEN 650 MG SUPPOSITORY RC PRN (03:00)
[2024-09-11] MEDS ORDERED: TEMAZepam 15 MG CAPSULE PO PRN (03:00)
[2024-09-11] MEDS ORDERED: ondanSETRON 4MG INJ IVP PRN (03:00)
[2024-09-11] MEDS ORDERED: doCUSate SODIUM 100 MG CAP PO PRN (03:00)
[2024-09-11] MEDS ORDERED: LACTULOSE 20 GM/30 ML UDCUP PO PRN (03:00)
[2024-09-11] MEDS ORDERED: VANCOMYCIN PROTOCOL PER PHARMACY IV SCH (03:30)
[2024-09-11] MEDS: 0.9%NACL 1000ML 1,000 ML IV ONE (03:59)
[2024-09-11] MEDS: 0.9%NACL 1000ML 1,000 ML IV SCH (03:59)
[2024-09-11] MEDS: Solu-medROL 125MG VIAL IVP ONE (04:32)
[2024-09-11] MEDS: SODIUM CHLORIDE 1,000 MG TAB PO SCH (04:32)
[2024-09-11] MEDS: Solu-medROL 125MG VIAL IVP SCH (04:32)
[2024-09-11] MEDS: IpraTROPium 0.5 MG/2.5 ML INH IH SCH (04:38)
[2024-09-11] MEDS: ALBUTEROL 0.083% 2.5 MG/3 ML INH IH SCH (04:38)
[2024-09-11 04:52] LABS: SARS-CoV-2, RNA, NAAT NEGATIVE SARS CoV-2 (NEGATIVE)
[2024-09-11 04:57] LABS: INFLUENZA TYPE A Negative For Type A (NEGATIVE); INFLUENZA TYPE B Negative For Type B (NEGATIVE)
[2024-09-11] MEDS ORDERED: THIA100T91 PO (06:03)
[2024-09-11] MEDS ORDERED: POLY17PO4 PO (06:03)
[2024-09-11] MEDS ORDERED: METO5TAB2 PO (06:03)
[2024-09-11] MEDS ORDERED: ESOM40CA66 PO (06:03)
--- NOTE | 2024-09-11 06:58 | EKG ---
[facility] Test Date: 2024-09-10 Test Time: 22:37:21 Pat Name: MATT SANDOVAL Department: [facility] Room: 208 1 Gender: M [employer] Member: [id number] : 1960 Requested By: SHAHRIAR FRANCO Order Number: [id number] Reading MD: Torrie Cantrell Measurements Intervals [place] Rate: 84 P: 0 CA: 0 QRS: 77 QRSD: 100 T: 68 QT: 380 QTc: 467 Interpretive Statements Atrial flutter with predominant 3:1 AV block Nonspecific T abnormalities, lateral leads Compared to ECG 08/16/2024 23:47:52 AV block, advanced (high-grade) now present T-wave abnormality now present Prolonged QT interval no longer present Electronically Signed On 09-11-2024 11:12:16 CDT by Torrie Cantrell Please click the below link to view image of tracing.
--- NOTE | 2024-09-11 08:21 | HMCIMG ---
CHEST 1VW REASON: Dyspnea/SOB COMPARISON: 08/17/2024 FINDINGS: There is been interval development of extensive infiltrate in the right lung in both the right upper and lower lobes. There is moderate infiltrate in the left lung base and less pronounced infiltrate in the left upper lobe. Heart size is normal. There is no vascular congestion. There are no pleural effusions. IMPRESSION: 1. Interval development of extensive confluent infiltrate in the right lung with pneumonia favored over edema. 2. Less pronounced infiltrate left lower lobe.
[2024-09-11] MEDS ORDERED: ceFEPime HCL 1 GM VIAL IVPB SCH (08:30)
--- NOTE | 2024-09-11 10:13 | CONS ---
[facility] CONSULTATION NOTE Date Patient Seen: Sep 11, 2024 Time of Visit: 10:02 Supervising Physician: Dr. Howard Reason for Consultation: [facility] Primary Care Physician: Sofy Fields Outpatient Specialists: [facility] Inpatient Consults: Tanner Rodriguez PROBLEM LIST: Acute hypoxic respiratory failure secondary to below Multifocal right lobe pneumonia-- suspect aspiration pneumonitis Hyponatremia with chronic history of hyponatremia Sepsis POA Hyperglycemia in the setting of type 2 DM Ischemic cardiomyopathy ejection fraction of 25% post AICD Dysphagia status post PEG tube placement- non compliance with NPO status Microcytic normochromic anemia Hx hypertension, GERD, dysphagia post PEG tube, CHF, ICM EF 20% post AICD, AFib, alcohol and cocaine abuse, GI bleeding HPI: This is a 64-year-old male with past medical history of ischemic cardiomyopathy with EF of 25% status post AICD, CHF, AFib, alcohol, and cocaine abuse, diabetes mellitus, hypertension, GERD, and dysphagia post peg tube placement who presented to the hospital with complaint of weakness and fatigue was found to be hyponatremic. According to the patient, he has been staying at [facility]. He has been noncompliance with NPO status imposed on him there. He admits that he has been drinking liquids for the past two days. He has history of dysphagia post PEG tube placement. Also, patient is known to have compromised ejection fraction with LVEF of 25%. He had used crack cocaine before and abused alcohol. Patient has history of atrial flutter not candidate for anticoagulation given GI bleeding and iron deficiency anemia. PAST MEDICAL HX: ICM CHF DM HTN PAST SURGICAL HX: AICD SOCIAL HISTORY: No tobacco, Former ETOH, Former illicit drug use- cocaine Coded Allergies: No Known Allergies (Verified Allergy, Unknown, 12/08/14) sucralfate (Unverified Allergy, Unknown, 09/10/24) REVIEW OF SYSTEMS: General: No Fever, No Chills, No Night Sweats, No Fatigue, No Malaise, No Appetite HEENT: No Head Aches, No Visual Changes, No Eye Pain, No Ear Pain, No Dysphasia, No Sinus Congestion, No Post Nasal Drip, No Sore Throat Pulmonary: No Dyspnea; No Cough, No Pleuritic Chest Pain, Yes dyspnea Cardiovascular: No: Chest Pain, Palpitations, Orthopnea, Paroxysmal Noc. Dyspnea, Edema, Lt Headedness Gastrointestinal: No: Nausea, Vomiting, Abdominal Pain, Diarrhea, Constipation, Melena, Hematochezia Genitourinary: No Dysuria, No Frequency, No Incontinence, No Hematuria, No Retention Musculoskeletal: No: other, neck pain, shoulder pain, arm pain, back pain, hand pain, leg pain, foot pain Skin: No Urticaria, No Rash Neurological: No: Weakness, Numbness, Incoordination, Change in speech, Confusion, Seizures PHYSICAL EXAM: GENERAL: alert, weak, awake oriented x 3 HEENT: EOMI, Sclera non icteric, moist mucosa NECK: Supple, no JVD, trachea midline LUNGS: Crackles right lobes. NO wheezing. No tachypnea HEART: Regular rate and rhythm. Normal S1 and S2, without murmurs ABD: Abdomen soft, nontender. Bowel sounds present EXT: No clubbing cyanosis or edema NEURO: Alert and oriented to person, follows commands Vital Signs (last 8hr) Date Time Temp Pulse Resp B/P (MAP) Pulse Ox O2 Delivery O2 Flow Rate FiO2 09/11/24 07:00 103 16 134/77 94 09/11/24 06:37 95 18 Venti Mask 12.0 40 09/11/24 06:37 95 20 09/11/24 06:00 90 14 118/68 96 Venti Mask 40 09/11/24 05:30 96 25 131/60 93 09/11/24 05:00 93 16 143/76 92 Venti Mask 40 09/11/24 04:39 98 20 09/11/24 04:30 85 22 122/56 94 09/11/24 04:00 89 18 132/63 95 Venti Mask 40 09/11/24 03:30 88 14 122/62 97 09/11/24 03:23 88 18 Venti Mask 12.0 40 09/11/24 03:00 97.7 90 21 120/60 97 Venti Mask 40 09/11/24 02:30 95 Venti Mask+ 40 09/11/24 02:30 88 29 130/74 89 LABS: Hematology Labs: Test 09/11/24 01:31 09/10/24 22:29 Range/Units White Blood Count 2.3 L 4.8-10.8 K/uL Red Blood Count 2.54 L 4.50-6.20 MIL/uL Hemoglobin 7.1 L 14.0-18.0 g/dL Hematocrit 19.6 *L 42-54 % Mean Corpuscular Volume 77.2 L 79-99 fL Mean Corpuscular Hemoglobin 28.0 27.0-33.0 pg Mean Corpuscular Hemoglobin Concent 36.2 H 32.0-36.0 g/dL Red Cell Distribution Width 15.4 11.0-15.5 % Platelet Count 90 L 130-400 K/uL Mean Platelet Volume 10.8 H 7.5-10.5 fL Nucleated Red Blood Cells 0.9 H 0.0-0.19 % Immature Granulocyte % (Auto) 0.8 0-1 % Neutrophils (%) (Auto) 77.5 H 40.0-77.0 % Lymphocytes (%) (Auto) 5.8 L 21.0-51.0 % Monocytes (%) (Auto) 15.9 H 3.0-13.0 % Eosinophils (%) (Auto) 0.0 0.0-8.0 % Basophils (%) (Auto) 0.0 0.0-5.0 % Neutrophils # (Auto) 2.0 1.8-7.7 K/uL Lymphocytes # (Auto) 0.2 L 1.0-4.8 K/uL Monocytes # (Auto) 0.4 0.1-1.0 K/uL Eosinophils # (Auto) 0.00 0.00-0.70 K/uL Basophils # (Auto) 0.00 0.00-0.20 K/uL Absolute Immature Granulocyte (auto 0.02 0-1 K/uL Segmented Neutrophils % 38 L 40-70 % Band Neutrophils % 33 H 0-2 % Lymphocytes % (Manual) 13 L 22-44 % Monocytes % (Manual) 8 2-9 % Metamyelocytes % 8 H 0-0 % Differential Comment MANUAL DIFFERENTIAL White Cell Morphology Comment VACUOLATION 1+ Platelet Morphology Comment DECREASED Red Blood Cell Morphology See comments Chemistry Labs: Test 09/11/24 09:31 09/11/24 01:31 09/10/24 22:29 Range/Units Whole Blood Glucose 197 H 70-110 MG/DL Sodium Level 109 *L 136-145 mmol/L Potassium Level 5.0 3.5-5.1 mmol/L Chloride Level 76 *L 101-111 mmol/L Carbon Dioxide Level 27 21-32 mmol/L Blood Urea Nitrogen 56 H 7-18 mg/dL Creatinine 2.0 H 0.5-1.3 mg/dL Glomerular Filtration Rate Calc 36 >90 mL/min Random Glucose 264 H 70-105 mg/dL Total Calcium 8.0 L 8.5-10.1 mg/dL Total Creatine Kinase 73 # 21-232 U/L Troponin I High Sensitivity 85 *H 4-75 ng/L B-Type Natriuretic Peptide 2350 H 0-100 pg/mL DIAGNOSTICS / RADIOLOGY RESULTS: REASON: Dyspnea/SOB ORDERING PHYSICIAN: SHAHRIAR FRANCO MD PROCEDURE: CXR1VW - CHEST 1VW CHEST 1VW REASON: Dyspnea/SOB COMPARISON: 08/17/2024 FINDINGS: There is been interval development of extensive infiltrate in the right lung in both the right upper and lower lobes. There is moderate infiltrate in the left lung base and less pronounced infiltrate in the left upper lobe. Heart size is normal. There is no vascular congestion. There are no pleural effusions. IMPRESSION: 1. Interval development of extensive confluent infiltrate in the right lung with pneumonia favored over edema. 2. Less pronounced infiltrate left lower lobe. PLAN NEURO: Minimize central acting medications as possible. Fall Precautions. Well lighted room through the day and minimize interruptions through the night to prevent acute delirium. PULMONARY: Supplemental 02 as needed Titrate Fio2 to keep Spo2 > or = 90% DuoNebs and CPT as needed IS hourly while awake for pulmonary hygiene Out of bed to chair as tolerated HOB 30 degrees of more Send sputum culture CARDIOVASCULAR: Follow hemodynamics. Titrate vasopressor to keep MAP >65 or systolic blood pressure >95mmHg DRIPS: NS LINES: PIV GI & NUTRITION: Continue nutritional support Aspirations precautions Prokinetic agents and laxatives as needed KIDNEYS & ELECTROLYTES: Strict monitoring of intake and output Daily weights Avoid nephrotoxic agents Monitor electrolytes and replace as needed Goal urine output of 30mL/hr or 0.5mL/kg/hr Trend sodium NS for now ENDOCRINE: Maintain blood glucose between 100-180 at all times. Insulin sliding scale for blood glucose management Long acting insulin INFECTIOUS DISEASE: Trend temperature. Kinsey-culture if febrile. Micro: Sputum Blood Antibiotics: Vanco 09/10 Zosyn 09/10-09/11 Cefepime 09/11- Metronidazole 09/11- HEMATOLOGY & COAGULATION: Monitor H&H. Keep Hgb > 7 Transfuse 1 unit of PRBC for Hgb < 7 Transfuse 1 pack of platelets of platelets < 20, 000 Watch for any signs and symptoms of bleeding SKIN: Pressure ulcer prevention per facility protocol Rehab: PT/OT Prophylaxis: GI: Protonix DVT: SCDs, Code Status: Full Resuscitation Disposition: ICU Other: Total patient care time exceeds 35 minutes excluding all procedures. Case was discussed and seen with my supervising physician. The above plan was formulated and agreed upon. NARENDRA MAZARIEGOS [facility] Sep 11, 2024 10:13
[2024-09-11] MEDS: metRONIDazole 500MG/100ML BAG IV SCH (10:23)
[2024-09-11] MEDS: levoFLOXacin 500 MG TABLET PO ONE (10:23)
[2024-09-11] MEDS: INSULIN humuLIN R 100 UNIT/ML 3ML SQ SCH (10:28)
[2024-09-11] MEDS: INSULIN GLARgine 100 UNITS/ML 10 ML VIAL SQ SCH (10:28)
[2024-09-11] MEDS: SODIUM CHLORIDE 3% FOR INHALATION 4 ML/AMP VIAL.NEB IH ONE (11:07)
[2024-09-11 12:08] LABS: APPEARANCE,URINE CLOUDY (CLEAR); BILIRUBIN,URINE NEGATIVE (NEGATIVE); COLOR,URINE LIGHT-YELLOW (YELLOW); GLUCOSE, URINE (UA) NEGATIVE (NEGATIVE); KETONES,URINE NEGATIVE (NEGATIVE); LEUKOCYTE ESTERASE ,URINE NEGATIVE Leu/uL (NEGATIVE); NITRATE,URINE NEGATIVE (NEGATIVE); OCCULT BLOOD,URINE NEGATIVE (NEGATIVE); PROTEIN,URINE 20 mg/dL (NEGATIVE); UROBILINOGEN,URINE 0.2 mg/dL (0.2-1.0)
[2024-09-11 12:13] LABS: ADD UA MICROSCOPIC YES
[2024-09-11 12:14] LABS: AMPHET/METH SCREEN,URINE NEGATIVE (NEGATIVE); BARBITURATE SCREEN, URINE NEGATIVE (NEGATIVE); BENZODIAZEPINES SCREEN,URINE NEGATIVE (NEGATIVE); CANNABINOID SCREEN,URINE NEGATIVE (NEGATIVE); COCAINE SCREEN,URINE NEGATIVE (NEGATIVE); OPIATE SCREEN,URINE NEGATIVE (NEGATIVE); PHENCYCLIDINE SCREEN,URINE NEGATIVE (NEGATIVE); SODIUM,URINE RANDOM < 13 mmol/l (40-220)
[2024-09-11] MEDS: Solu-medROL 40MG VIAL IVP SCH (12:18)
[2024-09-11 12:27] LABS: BACTERIA,URINE RARE /HPF (None Seen); RBC,URINE 0-1 /HPF (0-1); SQUAMOUS EPITHELIAL CELL,UR RARE /HPF (0-2); UNCLASSIFIED CRYSTAL 1 /HPF (None Seen)
--- NOTE | 2024-09-11 17:43 | HMCSR ---
APPROVED REPORT EXAM: Two-dimensional and M-mode echocardiogram with Doppler and color Doppler. INDICATION ICD: Dyspnea 2D Dimensions RVDd4.3 cmLVEF(%)62.1 (>50%)LVED Vol(simp.)102.0 mL IVSd0.8 (0.7-1.1cm)FS(%)33 %LVES Vol(simp.)63.0 mL LVDd4.5 (3.8-5.6cm)LA (2D)5.6 (1.6-4.0cm)LVEF(%, simp.)38 % PWd1.1 (0.7-1.1cm)Ao Root(2D)2.8 (2.0-3.7cm)LA ESV INDEX (4CH)35.40 mL/m2 IVSs0.9 cmLVOT diam2.2 (1.8-2.4cm)LA ESV INDEX (2CH)32.60 mL/m2 LVDs3.0 (2.5-4.0cm)IVC diam1.6 cmLA ESV INDEX (BP)33.50 mL/m2 PWs1.5 cm Deformation Strain Apical 4-13.0 % Apical 2-11.0 % Apical 3-11.0 % Global Strain-12.0 % M-Mode Dimensions EPSS0.8 cm LA (MM)5.1 (1.6-4.0cm) Ao Root(MM)2.9 (2.0-3.7cm) Aortic Valve AoV VTI0.2 mAo Mean GR4.0 mmHgLVOT VTI0.12 m KEILA (VMAX)2.2 cm2AVA (VTI) 2.2 cm2 Mitral Valve MV E Vmax84.4 cm/sDECEL Nabu371 ms MV A Vmax23.2 cm/sP 1/2 T59 ms E/A ratio3.6MVA (PHT)3.7 cm2 MR Max PG106 mmHg TDI E/E' Medial9.6E/E' Lateral6.9 Medial E' Peak V8.80 cm/sLateral E' Peak V12.20 cm/s Pulmonary Valve PV VTI0.12 mPV Mean GR1 mmHg Tricuspid Valve TR Vmax3.4 m/sRAP (EST) 8 kkNbJKIE08.0 mmHg TR Peak GR47.0 mmHg Left Ventricle The left ventricle is normal size. GLS-12%. There is normal left ventricular wall thickness. LVEF is 45-50%. The left ventricular diastolic function is normal. Right Ventricle The right ventricle is mildly dilated. The right ventricular systolic function is normal. Atria The left atrium size is normal. The right atrium is severely dilated. Aortic Valve The aortic valve is normal in structure. Aortic valve has calcified nodular thickening. No aortic reg urgitation is present. There is no aortic valvular stenosis. Mitral Valve The mitral valve is normal in structure. Mitral regurgitation is mild. There is no mitral valve steno sis. Tricuspid Valve The tricuspid valve is normal in structure. There is moderate tricuspid valve regurgitation noted, RV SP 55mmHg. Pulmonic Valve The pulmonary valve is normal in structure. There is no pulmonic valvular regurgitation. Great Vessels The aortic root is normal in size. The IVC is normal in size and collapses <50% with inspiration. Pericardium There is no pericardial effusion. Other Information Quality : Technically difficult due to pt continous moving. Conclusion The left ventricle is normal size. LVEF is 45-50%. The left ventricular diastolic function is normal. The right ventricle is mildly dilated. The right ventricular systolic function is normal. The left atrium size is normal. The right atrium is severely dilated. Mitral regurgitation is mild. There is moderate tricuspid valve regurgitation noted, RVSP 55mmHg. There is no pericardial effusion.
[2024-09-11] MEDS: BALSAM PERU/CASTOR OIL 60 GM TUBE TP SCH (21:10)
[2024-09-11] MEDS: VANCOMYCIN 750MG VIAL IVPB SCH (22:28)
--- NOTE | 2024-09-11 22:32 | HP ---
HISTORY AND PHYSICAL NOTE DATE OF CONSULTATION: 09/11/24 REASON FOR CONSULTATION: dyspnea HISTORY OF PRESENT ILLNESS: Mr Link is a 64-year-old male significant past medical history of iron deficiency anemia, calcium deficiency, insomnia, GERD, chronic dysphagia who presents today with here with shortness of breath. Patient was from the [facility] and has a history of aspiration. Patient apparently drank some water in had worsening work of breathing tonight. Patient apparently had EMS called after he was found to have sats in the 70s. Patient upon presentation had a sodium of 108 and an elevated troponin. Patient's chest x-ray looks he has by hilar upper and lower infiltrates Allergies: Coded Allergies: No Known Allergies (Verified Allergy, Unknown, 12/08/14) sucralfate (Unverified Allergy, Unknown, 09/10/24) Home Meds Reported Medications Multivitamin (Multivitamin) 1 Each Tablet, 1 EACH PO DAILY, TAB 08/17/24 Calamine/Zinc Oxide (Calamine Lotion) 8 %-8 % Lotion, 177 ML TP Q12H, APPL 08/17/24 Apixaban (Eliquis) 5 Mg Tablet, 5 MG PO Q12H, TAB 08/17/24 Clotrimazole (Clotrimazole) 1 % Cream..g., 15 GM TP DAILY 08/17/24 Ferrous Sulfate (Ferrous Sulfate) 325 Mg (65 Mg Iron) Ectab, 325 MG PO DAILY, TAB.EC 08/17/24 Calcium/D3/Mag Ox/[employer]/Jerry/Zn (Caltrate [id number] Tab) 600 Mg-20 Tablet, 1 EACH PO DAILY, TAB 08/17/24 Amino Acids/Protein Hydrolys (Pro-Stat Liquid) 15 Gram-100 Kcal/30 Ml Liquid, 30 ML PO TID 08/17/24 Metoprolol Succinate (Metoprolol Succinate) 25 Mg Tab.er.24h, 25 MG PO DAILY, TAB 08/17/24 Docusate Sodium (Docusate Sodium) 100 Mg Capsule, 100 MG PO BID, CAP 08/17/24 Melatonin (Melatonin) 5 Mg Capsule, 5 MG PO HS, CAP 08/17/24 Omeprazole (Omeprazole) 40 Mg Capsule.dr, 40 MG PO DAILY, CAP 08/17/24 Mupirocin Calcium (Mupirocin) 2 % Cream..g., 15 GM TP BID 08/17/24 Simethicone (Simethicone) 80 Mg Tab.chew, 80 MG PO TID, TAB.CHEW 08/17/24 Past History Past Medical History Past Medical History: A-Fib, Alcoholism, CHF, Diabetes-Type II, GERD, High Cholesterol, Hypertension, Renal Disese, Other Medical History Other: NEUROPATHY, COCAINE ABUSE, NICOTINE DEPENDENCE, PVD Past Surgical History: Other Social History Social History: Drugs Review of Systems ROS Dictation Twelve point review of systems can not be done given patient's altered mental status ALLERGIES: Coded Allergies: No Known Allergies (Verified Allergy, Unknown, 12/08/14) sucralfate (Unverified Allergy, Unknown, 09/10/24) HOME MEDS: Reported Medications Metoclopramide HCl (Metoclopramide HCl) 5 Mg Tablet, 5 MG PO DAILY, TAB 09/11/24 Thiamine HCl (Vitamin B-1) 100 Mg Tablet, 1 TAB PO DAILY for 30 Days, #30 TAB 0 Refills 09/11/24 Esomeprazole Magnesium (Esomeprazole Magnesium) 40 Mg Capsule.dr, 40 MG PO DAILY, CAP 09/11/24 Polyethylene Glycol 3350 (Miralax) 17 Gram Powd.pack, 17 GM PO DAILY 09/11/24 Multivitamin (Multivitamin) 1 Each Tablet, 1 EACH PO DAILY, TAB 08/17/24 Calamine/Zinc Oxide (Calamine Lotion) 8 %-8 % Lotion, 177 ML TP Q12H, APPL 08/17/24 Apixaban (Eliquis) 5 Mg Tablet, 5 MG PO Q12H, TAB 08/17/24 Clotrimazole (Clotrimazole) 1 % Cream..g., 15 GM TP DAILY 08/17/24 Ferrous Sulfate (Ferrous Sulfate) 325 Mg (65 Mg Iron) Ectab, 325 MG PO DAILY, TAB.EC 08/17/24 Calcium/D3/Mag Ox/[employer]/Jerry/Zn (Caltrate [id number] Tab) 600 Mg-20 Tablet, 1 EACH PO DAILY, TAB 08/17/24 Amino Acids/Protein Hydrolys (Pro-Stat Liquid) 15 Gram-100 Kcal/30 Ml Liquid, 30 ML PO TID 08/17/24 Metoprolol Succinate (Metoprolol Succinate) 25 Mg Tab.er.24h, 25 MG PO DAILY, TAB 08/17/24 Docusate Sodium (Docusate Sodium) 100 Mg Capsule, 100 MG PO BID, CAP 08/17/24 Melatonin (Melatonin) 5 Mg Capsule, 5 MG PO HS, CAP 08/17/24 Omeprazole (Omeprazole) 40 Mg Capsule.dr, 40 MG PO DAILY, CAP 08/17/24 Mupirocin Calcium (Mupirocin) 2 % Cream..g., 15 GM TP BID 08/17/24 Simethicone (Simethicone) 80 Mg Tab.chew, 80 MG PO TID, TAB.CHEW 08/17/24 INPATIENT MEDS: Current Medications Medications Dose Ordered Sig/Elenita Start Time Stop Time Status Last Admin Acetaminophen 650 mg Q6H PRN 09/11/24 03:00 10/11/24 02:59 Acetaminophen 650 mg Q6H PRN 09/11/24 03:00 10/11/24 02:59 Lactulose 20 gm Q6H PRN 09/11/24 03:00 10/11/24 02:59 Docusate Sodium 100 mg BID PRN 09/11/24 03:00 10/11/24 02:59 Temazepam 15 mg HS PRN 09/11/24 03:00 10/11/24 02:59 Ondansetron HCl 4 mg Q6H PRN 09/11/24 03:00 10/11/24 02:59 Insulin Human Regular INSULIN SLIDING SCAL... ACHS 09/11/24 07:30 10/11/24 07:29 09/11/24 19:04 Sodium Chloride 1,000 ml @ 50 mls/hr Q20H 09/11/24 03:30 10/11/24 03:29 09/11/24 03:59 Sodium Chloride 1,000 mg TID 09/11/24 03:30 10/11/24 03:29 09/11/24 20:43 Vancomycin HCl 1 each AD 09/11/24 03:30 09/25/24 03:29 Albuterol Sulfate 2.5 mg [id number] 09/11/24 04:00 10/11/24 03:59 09/11/24 18:45 Ipratropium [place] 0.5 mg [id number] 09/11/24 04:00 10/11/24 03:59 09/11/24 18:45 Vancomycin HCl 750 mg Q24H 09/11/24 23:30 09/21/24 23:29 09/11/24 22:28 Methylprednisolone Sodium Succinate 60 mg Q8H 09/11/24 12:00 10/11/24 03:59 09/11/24 20:43 Metronidazole/ Sodium Chloride 500 mg Q8H 09/11/24 10:00 09/21/24 09:59 09/11/24 18:45 Levofloxacin 250 mg DAILY 09/12/24 09:00 09/22/24 08:59 Insulin Glargine 10 units BID@0730,2100 09/11/24 10:30 10/11/24 10:29 09/11/24 20:44 Wound Care/ Dressing Products 1 APPL TID 09/11/24 21:00 10/11/24 20:59 09/11/24 21:10 VITAL SIGNS Vital Signs Date Time Temp Pulse Resp B/P (MAP) Pulse Ox O2 Delivery O2 Flow Rate FiO2 09/11/24 18:49 107 20 09/11/24 18:48 106 19 Venti Mask 12.0 40 09/11/24 18:00 104 19 121/54 94 Venti Mask 35 09/11/24 17:00 105 14 118/60 95 Venti Mask 35 09/11/24 16:12 95 Venti Mask+ 9 35 09/11/24 16:04 108 25 105/55 95 Venti Mask 35 09/11/24 15:54 97.7 09/11/24 15:00 105 16 140/62 92 Venti Mask 35 09/11/24 14:00 103 19 127/57 96 Venti Mask 35 09/11/24 13:00 104 15 125/73 94 Venti Mask 35 09/11/24 12:00 97.7 107 21 114/70 95 Venti Mask 40 09/11/24 12:00 95 Simple Mask* 12 40 09/11/24 11:10 104 20 09/11/24 11:09 104 18 Venti Mask 12.0 40 09/11/24 11:00 111 24 135/69 95 Venti Mask 40 09/11/24 10:00 105 26 117/63 97 Venti Mask 40 09/11/24 09:00 97.2 110 26 144/59 97 Venti Mask 40 09/11/24 08:00 102 19 132/90 98 Venti Mask 40 09/11/24 08:00 95 Venti Mask+ 12 40 09/11/24 07:00 103 16 134/77 94 09/11/24 06:37 95 18 Venti Mask 12.0 40 09/11/24 06:37 95 20 09/11/24 06:00 90 14 118/68 96 Venti Mask 40 09/11/24 05:30 96 25 131/60 93 09/11/24 05:00 93 16 143/76 92 Venti Mask 40 09/11/24 04:39 98 20 09/11/24 04:30 85 22 122/56 94 09/11/24 04:00 89 18 132/63 95 Venti Mask 40 09/11/24 03:30 88 14 122/62 97 09/11/24 03:23 88 18 Venti Mask 12.0 40 09/11/24 03:00 97.7 90 21 120/60 97 Venti Mask 40 09/11/24 02:30 95 Venti Mask+ 40 09/11/24 02:30 88 29 130/74 89 09/11/24 02:00 89 24 108/61 92 Venti Mask 40 09/10/24 23:42 94 32 120/55 96 Nasal Cannula* 4 36 09/10/24 22:45 98.8 90 26 116/47 98 Non-Rebreather+ 15 100 PHYSICAL EXAM Physical Exam Physical Exam Physical Exam Dictation General: Confused, lethargic Head/Face: Normocephalic, atraumatic Eyes: PERRL ENT: oral cavity clear Neck: Trachea midline, supple Cardiovascular: RRR, normal S1/S2, No MRGs, no JVD Respiratory: CTAB, no respiratory distress, No rales or wheezes Abdomen: Soft, non-tender, non-distended, normal bowel sounds Skin: Warm, dry, normal turgor, no rash MS/Extremity: Pulses equal Neuro: Responds to noxious stimuli, lethargic LABORATORY RESULTS Laboratory Tests 09/10/24 22:29: White Blood Count 2.6, Red Blood Count 2.61, Hemoglobin 7.3, Hematocrit 20.4, Mean Corpuscular Volume 78.2, Mean Corpuscular Hemoglobin 28.0, Mean Corpuscular Hemoglobin Concent 35.8, Red Cell Distribution Width 15.4, Platelet Count 81, Mean Platelet Volume 9.9, Immature Granulocyte % (Auto) 0.8, Neutrophils (%) (Auto) 77.5, Lymphocytes (%) (Auto) 5.8, Monocytes (%) (Auto) 15.9, Eosinophils (%) (Auto) 0.0, Basophils (%) (Auto) 0.0, Neutrophils # (Auto) 2.0, Lymphocytes # (Auto) 0.2, Monocytes # (Auto) 0.4, Eosinophils # (Auto) 0.00, Basophils # (Auto) 0.00, Absolute Immature Granulocyte (auto 0.02, Segmented Neutrophils % 38, Band Neutrophils % 33, Lymphocytes % (Manual) 13, Monocytes % (Manual) 8, Metamyelocytes % 8, Nucleated Red Blood Cells 0.0, Differential Comment MANUAL DIFFERENTIAL, White Cell Morphology Comment VACUOLATION 1+, Platelet Morphology Comment DECREASED, Red Blood Cell Morphology See comments, Sodium Level 108, Potassium Level 4.7, Chloride Level 74, Carbon Dioxide Level 23, Blood Urea Nitrogen 54, Creatinine 1.9, Glomerular Filtration Rate Calc 38, Random Glucose 305, Total Calcium 8.0, Total Creatine Kinase 73, Troponin I High Sensitivity 85, B-Type Natriuretic Peptide 2350 09/11/24 01:08: Blood Gas Specimen Type Arterial, Arterial Blood pH 7.435, Arterial Blood Partial Pressure CO2 29, Arterial Blood Partial Pressure O2 129.7, Arterial Blood HCO3 19.0, Arterial Blood Oxygen Saturation 98.4, Arterial Blood Base Excess -4.5, Hemoglobin (Blood Gas) 7.9, Sodium (Blood Gas) 110, Bedside Pot assium (Blood Gas) 4.8, Bedside Chloride (Blood Gas) 80, Bedside Glucose (Blood Gas) 239, Bedside Ionized Calcium (Blood Gas) 1.05, Bedside Lactic Acid (Blood Gas) 4.73, Blood Gas Temperature 37.0, Blood Gas Vent Mode NRB, FiO2 100.0, Blood Gas Specimen Comment RN RR 09/11/24 01:31: White Blood Count 2.3, Red Blood Count 2.54, Hemoglobin 7.1, Hematocrit 19.6, Mean Corpuscular Volume 77.2, Mean Corpuscular Hemoglobin 28.0, Mean Corpuscular Hemoglobin Concent 36.2, Red Cell Distribution Width 15.4, Platelet Count 90, Mean Platelet Volume 10.8, Nucleated Red Blood Cells 0.9, Sodium Level 109, Potassium Level 5.0, Chloride Level 76, Carbon Dioxide Level 27, Blood Urea Nitrogen 56, Creatinine 2.0, Glomerular Filtration Rate Calc 36, Random Glucose 264, Total Calcium 8.0 09/11/24 04:30: Influenza Type A Antigen Negative For Type A, Influenza Type B Antigen Negative For Type B, SARS-CoV-2, RNA, NAAT NEGATIVE SARS CoV-2 09/11/24 09:31: Whole Blood Glucose 197 09/11/24 10:20: Sodium Level 115, Lactic Acid Level 3.0, Procalcitonin 29.46 09/11/24 10:57: Whole Blood Glucose 227 09/11/24 11:45: Urine Color LIGHT-YELLOW, Urine Appearance CLOUDY, Urine pH 5.0, Urine Specific [place] 1.007, Urine Protein 20, Urine Glucose (UA) NEGATIVE, Urine Ketones NEGATIVE, Urine Occult Blood NEGATIVE, Urine Nitrate NEGATIVE, Urine Bilirubin NEGATIVE, Urine Urobilinogen 0.2, Urine Leukocyte Esterase NEGATIVE, Urine RBC 0-1, Urine WBC 2-5, Urine Squamous Epithelial Cells RARE, Urine Other Crystals (Auto) 1, Urine Bacteria RARE, Urine Random Creatinine 18.50, Urine Random Sodium < 13, Urine Opiates Screen NEGATIVE, Urine Barbiturates Screen NEGATIVE, Urine Phencyclidine Screen NEGATIVE, Urine Amphetamines Screen NEGATIVE, Urine Benzodiazepines Screen NEGATIVE, Urine Cocaine Screen NEGATIVE, Urine Marijuana (THC) Screen NEGATIVE 09/11/24 12:11: Whole Blood Glucose 196 09/11/24 14:46: Sodium Level 114, Lactic Acid Level 2.4 09/11/24 18:58: Whole Blood Glucose 184 09/11/24 20:37: Whole Blood Glucose 167 Microbiology Date/Time Source Procedure Growth Status 09/11/24 11:45 Sputum Expectorated Gram Stain - Final Resulted 09/11/24 11:45 Sputum Expectorated Respiratory Culture Pending Resulted PROBLEM LIST: (1) Hypoxia ICD Codes: R09.02 - Hypoxemia (2) Bilateral pleural effusion ICD Codes: J90 - Pleural effusion, not elsewhere classified (3) Elevated brain natriuretic peptide (BNP) level ICD Codes: R79.89 - Other specified abnormal findings of blood chemistry (4) ADRY (acute kidney injury) ICD Codes: N17.9 - Acute kidney failure, unspecified (5) Acute hypoxic respiratory failure ICD Codes: J96.01 - Acute respiratory failure with hypoxia (6) Type 2 diabetes mellitus with hyperglycemia ICD Codes: E11.65 - Type 2 diabetes mellitus with hyperglycemia PLAN admit to icu and consult critical care MARKOS JORGENSEN MD Sep 11, 2024 22:32
[2024-09-12] VITALS (30 sets, daily range): BP systolic 96–149; BP diastolic 56–90; PULSE 100–133; RESP 12–30; TEMP 97.5–98; O2SAT 95–98
[2024-09-12 06:55] LABS: HEMATOCRIT 22.2 % (42-54); IMMATURE GRANULOCYTE ABSOLUTE 0.02 K/uL (0-1); LYMPHOCYTES # (AUTO) 0.1 K/uL (1.0-4.8); LYMPHOCYTES % (AUTO) 6.1 % (21.0-51.0); MEAN CORPUSCULAR HEMOGLOBIN 27.6 pg (27.0-33.0); MEAN CORPUSCULAR HGB CONC 34.2 g/dL (32.0-36.0); MEAN CORPUSCULAR VOLUME 80.7 fL (79-99); MONOCYTES # (AUTO) 0.4 K/uL (0.1-1.0); MONOCYTES % (AUTO) 16.5 % (3.0-13.0); NEUTROPHILS # (AUTO) 1.6 K/uL (1.8-7.7); NEUTROPHILS % (AUTO) 76.5 % (40.0-77.0); PLATELET COUNT (AUTO) 96 K/uL (130-400); RED BLOOD CELL COUNT(AUTO) 2.75 MIL/uL (4.50-6.20); RED CELL DISTRIBUTION WIDTH 16.4 % (11.0-15.5); WHITE BLOOD COUNT (AUTO) 2.1 K/uL (4.8-10.8)
[2024-09-12 07:12] LABS: CREATININE 1.4 mg/dL (0.5-1.3); MAGNESIUM 1.8 mg/dL (1.80-2.40); PHOSPHORUS 3.1 mg/dL (2.5-4.9); POTASSIUM 3.7 mmol/L (3.5-5.1)
[2024-09-12 07:44] LABS: BAND NEUTROPHILS % (MANUAL) 17 % (0-2); LYMPHOCYTES % (MANUAL) 10 % (22-44); MAN.DIFF COMMENT-IMPRESSION MANUAL DIFFERENTIAL; MONOCYTES % (MANUAL) 13 % (2-9); PLATELET MORPHOLOGY COMMENT DECREASED; SEGMENTED NEUTROPHILS % 60 % (40-70); TOTAL CELLS COUNTED 100
[2024-09-12] MEDS: levoFLOXacin 500 MG TABLET PO SCH (08:33)
[2024-09-12] MEDS: metoPROLOL tartRATE 25 MG TAB PO SCH (10:09)
[2024-09-12] MEDS: DEXTROSE 5%-WATER 1,000 ML IV SCH (10:10)
--- NOTE | 2024-09-12 10:43 | PN ---
[facility] PROGRESS NOTE Date Patient Seen: Sep 12, 2024 Time of Visit: 10:39 Supervising Physician: Dr. Howard Primary Care Physician: Sofy Fields Outpatient Specialists: [facility] Inpatient Consults: Tanner Rodriguez PROBLEM LIST: Acute hypoxic respiratory failure secondary to below Multifocal right lobe pneumonia-- suspect aspiration pneumonitis Hyponatremia with chronic history of hyponatremia Sepsis POA Hyperglycemia in the setting of type 2 DM Ischemic cardiomyopathy ejection fraction of 25% post AICD Dysphagia status post PEG tube placement- non compliance with NPO status Microcytic normochromic anemia Hx hypertension, GERD, dysphagia post PEG tube, CHF, ICM EF 20% post AICD, AFib, alcohol and cocaine abuse, GI bleeding INTERVAL HISTORY: 09/12 patient is awake alert and oriented x3 not in acute distress. Patient has been weaned off the Ventimask now on high-flow nasal cannula. Saturation oxygen is remaining 98%. Patient has AFib with rapid ventricular response at 114. We we will resume home meds with beta-ema to do his PEG tube. Otherwise his sodium is up to 131 this is up from 115 yesterday. Discontinue NS IV fluid and start patient on dextrose fluid. Goal sodium is 129 by 10 p.m. tonight. Continue to trend sodium level. Renal function has improved creatinine is 1.4 down from 2.0 yesterday. Urine output is 3.1 L. balance-1.3 L. Will continue strict i/o. Sputum culture with GNR +3, procalcitonin is 29. Continue with antibiotics cefepime, flagyl, and vanc. Trend procal. Downgrade to PCCU. REVIEW OF SYSTEMS: General: No Fever, No Chills, No Night Sweats, No Fatigue, No Malaise, No Appetite HEENT: No Head Aches, No Visual Changes, No Eye Pain, No Ear Pain, No Dysphasia, No Sinus Congestion, No Post Nasal Drip, No Sore Throat Pulmonary: No Dyspnea; No Cough, No Pleuritic Chest Pain, Yes dyspnea Cardiovascular: No: Chest Pain, Palpitations, Orthopnea, Paroxysmal Noc. Dyspnea, Edema, Lt Headedness Gastrointestinal: No: Nausea, Vomiting, Abdominal Pain, Diarrhea, Constipation, Melena, Hematochezia Genitourinary: No Dysuria, No Frequency, No Incontinence, No Hematuria, No Retention Musculoskeletal: No: other, neck pain, shoulder pain, arm pain, back pain, hand pain, leg pain, foot pain Skin: No Urticaria, No Rash Neurological: No: Weakness, Numbness, Incoordination, Change in speech, Confusion, Seizures PHYSICAL EXAM: GENERAL: alert, weak, awake oriented x 3 HEENT: EOMI, Sclera non icteric, moist mucosa NECK: Supple, no JVD, trachea midline LUNGS: Crackles right lobes. NO wheezing. No tachypnea HEART: Regular rate and rhythm. Normal S1 and S2, without murmurs ABD: Abdomen soft, nontender. Bowel sounds present EXT: No clubbing cyanosis or edema NEURO: Alert and oriented to person, follows commands Vital Signs (last 8hr) Date Time Temp Pulse Resp B/P (MAP) Pulse Ox O2 Delivery O2 Flow Rate FiO2 09/12/24 10:01 114 28 N/Cannula Low lpm 4.0 36 09/12/24 06:45 109 20 09/12/24 06:43 109 20 Venti Mask 9.0 35 09/12/24 05:48 114 12 133/60 98 Venti Mask 35 09/12/24 05:48 114 12 133/60 98 09/12/24 04:48 118 22 129/61 93 09/12/24 04:48 118 22 129/61 93 Venti Mask 35 09/12/24 04:00 97 Venti Mask+ 35 09/12/24 03:48 112 12 133/73 94 Venti Mask 35 09/12/24 03:48 112 12 133/73 94 09/12/24 02:48 115 18 136/56 93 Venti Mask 35 09/12/24 02:48 115 18 136/56 93 LABS: Hematology Labs: Test 09/12/24 06:33 09/10/24 22:29 Range/Units White Blood Count 2.1 L 4.8-10.8 K/uL Red Blood Count 2.75 L 4.50-6.20 MIL/uL Hemoglobin 7.6 L 14.0-18.0 g/dL Hematocrit 22.2 L 42-54 % Mean Corpuscular Volume 80.7 79-99 fL Mean Corpuscular Hemoglobin 27.6 27.0-33.0 pg Mean Corpuscular Hemoglobin Concent 34.2 32.0-36.0 g/dL Red Cell Distribution Width 16.4 H 11.0-15.5 % Platelet Count 96 L 130-400 K/uL Mean Platelet Volume 10.1 7.5-10.5 fL Immature Granulocyte % (Auto) 0.9 0-1 % Neutrophils (%) (Auto) 76.5 40.0-77.0 % Lymphocytes (%) (Auto) 6.1 L 21.0-51.0 % Monocytes (%) (Auto) 16.5 H 3.0-13.0 % Eosinophils (%) (Auto) 0.0 0.0-8.0 % Basophils (%) (Auto) 0.0 0.0-5.0 % Neutrophils # (Auto) 1.6 L 1.8-7.7 K/uL Lymphocytes # (Auto) 0.1 L 1.0-4.8 K/uL Monocytes # (Auto) 0.4 0.1-1.0 K/uL Eosinophils # (Auto) 0.00 0.00-0.70 K/uL Basophils # (Auto) 0.00 0.00-0.20 K/uL Absolute Immature Granulocyte (auto 0.02 0-1 K/uL Segmented Neutrophils % 60 40-70 % Band Neutrophils % 17 H 0-2 % Lymphocytes % (Manual) 10 L 22-44 % Monocytes % (Manual) 13 H 2-9 % Nucleated Red Blood Cells 0.0 0.0-0.19 % Differential Comment MANUAL DIFFERENTIAL White Cell Morphology Comment Platelet Morphology Comment DECREASED Red Blood Cell Morphology See comments Metamyelocytes % 8 H 0-0 % Chemistry Labs: Test 09/12/24 06:33 09/11/24 20:37 09/11/24 14:46 09/11/24 10:20 Range/Units Sodium Level 131 L 136-145 mmol/L Potassium Level 3.7 3.5-5.1 mmol/L Chloride Level 100 L 101-111 mmol/L Carbon Dioxide Level 24 21-32 mmol/L Blood Urea Nitrogen 47 H 7-18 mg/dL Creatinine 1.4 H 0.5-1.3 mg/dL Glomerular Filtration Rate Calc 55 >90 mL/min Random Glucose 154 H 70-105 mg/dL Total Calcium 7.7 L 8.5-10.1 mg/dL Phosphorus Level 3.1 2.5-4.9 mg/dL Magnesium Level 1.80 1.80-2.40 mg/dL Whole Blood Glucose 167 H 70-110 MG/DL Lactic Acid Level 2.4 0.8-2.5 mmol/L Procalcitonin 29.46 H 0.05-0.5 ng/mL Test 09/10/24 22:29 Range/Units Total Creatine Kinase 73 # 21-232 U/L Troponin I High Sensitivity 85 *H 4-75 ng/L B-Type Natriuretic Peptide 2350 H 0-100 pg/mL DIAGNOSTICS / RADIOLOGY RESULTS: [ ] PLAN NEURO: Minimize central acting medications as possible. Fall Precautions. Well lighted room through the day and minimize interruptions through the night to prevent acute delirium. PULMONARY: Supplemental 02 as needed Titrate Fio2 to keep Spo2 > or = 90% DuoNebs and CPT as needed IS hourly while awake for pulmonary hygiene Out of bed to chair as tolerated HOB 30 degrees of more Send sputum culture CARDIOVASCULAR: Follow hemodynamics. Titrate vasopressor to keep MAP >65 or systolic blood pressure >95mmHg DRIPS: NS LINES: PIV GI & NUTRITION: Continue nutritional support Aspirations precautions Prokinetic agents and laxatives as needed KIDNEYS & ELECTROLYTES: Strict monitoring of intake and output Daily weights Avoid nephrotoxic agents Monitor electrolytes and replace as needed Goal urine output of 30mL/hr or 0.5mL/kg/hr Trend sodium NS for now ENDOCRINE: Maintain blood glucose between 100-180 at all times. Insulin sliding scale for blood glucose management Long acting insulin INFECTIOUS DISEASE: Trend temperature. Kinsey-culture if febrile. Micro: Sputum Blood Antibiotics: Vanco 09/10 Zosyn 09/10-09/11 Cefepime 09/11- Metronidazole 09/11- HEMATOLOGY & COAGULATION: Monitor H&H. Keep Hgb > 7 Transfuse 1 unit of PRBC for Hgb < 7 Transfuse 1 pack of platelets of platelets < 20, 000 Watch for any signs and symptoms of bleeding SKIN: Pressure ulcer prevention per facility protocol Rehab: PT/OT Prophylaxis: GI: Protonix DVT: SCDs, Code Status: Full Resuscitation Disposition: ICU Other: Total patient care time exceeds 35 minutes excluding all procedures. Case was discussed and seen with my supervising physician. The above plan was formulated and agreed upon. NARENDRA MAZARIEGOS INVERTEBRATE PALEONTOLOGIST Sep 12, 2024 10:43
[2024-09-12] MEDS: Solu-medROL 40MG VIAL IVP SCH (12:15)
--- NOTE | 2024-09-12 21:17 | PN ---
PROGRESS NOTE PROGRESS NOTE DATE OF PROGRESS NOTE: 09/12/24 SUBJECTIVE: Patient is less short of breath doing better VITAL SIGNS Vital Signs Date Time Temp Pulse Resp B/P (MAP) Pulse Ox O2 Delivery O2 Flow Rate FiO2 09/12/24 20:12 97.5 121 20 149/87 97 Room Air 09/12/24 18:36 4.0 36 PHYSICAL EXAM: Physical Exam Physical Exam Physical Exam Dictation General: Confused, lethargic Head/Face: Normocephalic, atraumatic Eyes: PERRL ENT: oral cavity clear Neck: Trachea midline, supple Cardiovascular: RRR, normal S1/S2, No MRGs, no JVD Respiratory: CTAB, no respiratory distress, No rales or wheezes Abdomen: Soft, non-tender, non-distended, normal bowel sounds Skin: Warm, dry, normal turgor, no rash MS/Extremity: Pulses equal Neuro: Responds to noxious stimuli, lethargic LABORATORY: Laboratory Result(s) Test 09/11/24 22:22 09/12/24 06:33 09/12/24 11:31 09/12/24 11:54 Sodium Level 119 mmol/L (136-145) 131 mmol/L (136-145) White Blood Count 2.1 K/uL (4.8-10.8) Red Blood Count 2.75 MIL/uL (4.50-6.20) Hemoglobin 7.6 g/dL (14.0-18.0) Hematocrit 22.2 % (42-54) Mean Corpuscular Volume 80.7 fL (79-99) Mean Corpuscular Hemoglobin 27.6 pg (27.0-33.0) Mean Corpuscular Hemoglobin Concent 34.2 g/dL (32.0-36.0) Red Cell Distribution Width 16.4 % (11.0-15.5) Platelet Count 96 K/uL (130-400) Mean Platelet Volume 10.1 fL (7.5-10.5) Immature Granulocyte % (Auto) 0.9 % (0-1) Neutrophils (%) (Auto) 76.5 % (40.0-77.0) Lymphocytes (%) (Auto) 6.1 % (21.0-51.0) Monocytes (%) (Auto) 16.5 % (3.0-13.0) Eosinophils (%) (Auto) 0.0 % (0.0-8.0) Basophils (%) (Auto) 0.0 % (0.0-5.0) Neutrophils # (Auto) 1.6 K/uL (1.8-7.7) Lymphocytes # (Auto) 0.1 K/uL (1.0-4.8) Monocytes # (Auto) 0.4 K/uL (0.1-1.0) Eosinophils # (Auto) 0.00 K/uL (0.00-0.70) Basophils # (Auto) 0.00 K/uL (0.00-0.20) Absolute Immature Granulocyte (auto 0.02 K/uL (0-1) Segmented Neutrophils % 60 % (40-70) Band Neutrophils % 17 % (0-2) Lymphocytes % (Manual) 10 % (22-44) Monocytes % (Manual) 13 % (2-9) Nucleated Red Blood Cells 0.0 % (0.0-0.19) Differential Comment MANUAL DIFFERENTIAL White Cell Morphology Comment Platelet Morphology Comment DECREASED Red Blood Cell Morphology See comments Potassium Level 3.7 mmol/L (3.5-5.1) Chloride Level 100 mmol/L (101-111) Carbon Dioxide Level 24 mmol/L (21-32) Blood Urea Nitrogen 47 mg/dL (7-18) Creatinine 1.4 mg/dL (0.5-1.3) Glomerular Filtration Rate Calc 55 mL/min (>90) Random Glucose 154 mg/dL (70-105) Total Calcium 7.7 mg/dL (8.5-10.1) Phosphorus Level 3.1 mg/dL (2.5-4.9) Magnesium Level 1.80 mg/dL (1.80-2.40) 2.00 mg/dL (1.80-2.40) Whole Blood Glucose 190 MG/DL (70-110) Test 09/12/24 14:40 09/12/24 16:17 09/12/24 19:54 Sodium Level 126 mmol/L (136-145) Vitamin B12 Level 1520 pg/mL (193-986) Whole Blood Glucose 175 MG/DL (70-110) 172 MG/DL (70-110) INPATIENT MEDS: Current Medications Medications Dose Ordered Sig/Elenita Start Time Stop Time Status Last Admin Acetaminophen 650 mg Q6H PRN 09/11/24 03:00 10/11/24 02:59 Acetaminophen 650 mg Q6H PRN 09/11/24 03:00 10/11/24 02:59 Lactulose 20 gm Q6H PRN 09/11/24 03:00 10/11/24 02:59 Docusate Sodium 100 mg BID PRN 09/11/24 03:00 10/11/24 02:59 Temazepam 15 mg HS PRN 09/11/24 03:00 10/11/24 02:59 Ondansetron HCl 4 mg Q6H PRN 09/11/24 03:00 10/11/24 02:59 Insulin Human Regular INSULIN SLIDING SCAL... ACHS 09/11/24 07:30 10/11/24 07:29 09/12/24 12:17 Sodium Chloride 1,000 mg TID 09/11/24 03:30 10/11/24 03:29 09/12/24 19:49 Vancomycin HCl 1 each AD 09/11/24 03:30 09/25/24 03:29 Albuterol Sulfate 2.5 mg [id number] 09/11/24 04:00 10/11/24 03:59 09/12/24 18:36 Ipratropium [place] 0.5 mg [id number] 09/11/24 04:00 10/11/24 03:59 09/12/24 18:36 Vancomycin HCl 750 mg Q24H 09/11/24 23:30 09/21/24 23:29 09/11/24 22:28 Metronidazole/ Sodium Chloride 500 mg Q8H 09/11/24 10:00 09/21/24 09:59 09/12/24 17:55 Levofloxacin 250 mg DAILY 09/12/24 09:00 09/22/24 08:59 09/12/24 08:33 Insulin Glargine 10 units BID@0730,2100 09/11/24 10:30 10/11/24 10:29 09/12/24 20:05 Wound Care/ Dressing Products 1 APPL TID 09/11/24 21:00 10/11/24 20:59 09/12/24 19:55 Metoprolol Tartrate 12.5 mg BID 09/12/24 10:00 10/12/24 09:59 09/12/24 19:50 Methylprednisolone Sodium Succinate 40 mg Q8H 09/12/24 12:00 10/12/24 11:59 09/12/24 19:50 PROBLEM LIST: (1) Hypoxia ICD Code: R09.02 - Hypoxemia (2) Bilateral pleural effusion ICD Code: J90 - Pleural effusion, not elsewhere classified (3) Elevated brain natriuretic peptide (BNP) level ICD Code: R79.89 - Other specified abnormal findings of blood chemistry (4) ADRY (acute kidney injury) ICD Code: N17.9 - Acute kidney failure, unspecified (5) Acute hypoxic respiratory failure ICD Code: J96.01 - Acute respiratory failure with hypoxia (6) Type 2 diabetes mellitus with hyperglycemia ICD Code: E11.65 - Type 2 diabetes mellitus with hyperglycemia PLAN: Aspiration pneumonia improving Continue his feeding through PEG Hyponatremia improving continue to monitor MARKOS JORGENSEN MD Sep 12, 2024 21:17
[2024-09-13] VITALS (13 sets, daily range): BP systolic 126–155; BP diastolic 72–98; PULSE 90–125; RESP 16–20; TEMP 97.5–98.3; O2SAT 94–95
[2024-09-13 03:47] LABS: BASOPHILS # (AUTO) 0.01 K/uL (0.00-0.20); BASOPHILS % (AUTO) 0.2 % (0.0-5.0); HEMATOCRIT 23.5 % (42-54); IMMATURE GRANULOCYTE ABSOLUTE 0.16 K/uL (0-1); LYMPHOCYTES # (AUTO) 0.3 K/uL (1.0-4.8); LYMPHOCYTES % (AUTO) 7.1 % (21.0-51.0); MEAN CORPUSCULAR HEMOGLOBIN 28.5 pg (27.0-33.0); MEAN CORPUSCULAR HGB CONC 34.9 g/dL (32.0-36.0); MEAN CORPUSCULAR VOLUME 81.6 fL (79-99); MONOCYTES # (AUTO) 0.5 K/uL (0.1-1.0); MONOCYTES % (AUTO) 10.6 % (3.0-13.0); NEUTROPHILS # (AUTO) 3.3 K/uL (1.8-7.7); NEUTROPHILS % (AUTO) 78.3 % (40.0-77.0); PLATELET COUNT (AUTO) 124 K/uL (130-400); RED BLOOD CELL COUNT(AUTO) 2.88 MIL/uL (4.50-6.20); RED CELL DISTRIBUTION WIDTH 16.8 % (11.0-15.5); WHITE BLOOD COUNT (AUTO) 4.3 K/uL (4.8-10.8)
[2024-09-13 04:06] LABS: CREATININE 1.4 mg/dL (0.5-1.3); MAGNESIUM 2.1 mg/dL (1.80-2.40); POTASSIUM 3.8 mmol/L (3.5-5.1)
[2024-09-13] MEDS ORDERED: metoPROLOL tartRATE 25 MG TAB PO SCH (07:30)
--- NOTE | 2024-09-13 09:57 | PN ---
[facility] PROGRESS NOTE Date Patient Seen: Sep 13, 2024 Time of Visit: 09:57 Supervising Physician: Dr. Cuong Muñoz Primary Care Physician: Sofy Fields Outpatient Specialists: AMAN Inpatient Consults: Tanner Rodriguez PROBLEM LIST: Acute hypoxic respiratory failure secondary to below Multifocal right lobe pneumonia-- suspect aspiration pneumonitis (+) ESBL Klebsiella pneumoniae Hyponatremia with chronic history of hyponatremia Sepsis present on admission Chronic atrial fibrillation Hyperglycemia in the setting of type 2 DM Ischemic cardiomyopathy ejection fraction of 25% post AICD Dysphagia status post PEG tube placement- non compliance with NPO status Microcytic normochromic anemia Hypertension GERD History of GI bleeding ETOH and cocaine abuse INTERVAL HISTORY: Patient assessed at bedside. AAOX3. Currently on 02@4LPM via NC. Saturation oxygen is remaining above 90%. Patient continues with afib RVR. Per nursing, PEG tube with air sound around it. CT abdomen/pelvis ordered. Metoprolol via PEG tube changed to IV for now. Sodium improved to 127. Sputum culture positive for ESBL klebsiella, stopped IV cefepime and started on IV Merrem. No family at bedside. Plan: Taper solu-medrol from 40mg IV every [address] abdomen/pelvis without contrast to assess PEG tube placement Stop IV Cefepime and start on IV Merrem due to sputum culture positive for ESBL Change metoprolol via peg to IV for now AM labs, procalcitonin Aspiration precautions Continue on atrovent, stopped albuterol Continue on sodium 1gm TID Continue current medical management per primary team REVIEW OF SYSTEMS: General: No Fever, No Chills, No Night Sweats, No Fatigue, No Malaise, No Appetite HEENT: No Head Aches, No Visual Changes, No Eye Pain, No Ear Pain, No Dysphasia, No Sinus Congestion, No Post Nasal Drip, No Sore Throat Pulmonary: No Dyspnea; No Cough, No Pleuritic Chest Pain, Yes dyspnea Cardiovascular: No: Chest Pain, Palpitations, Orthopnea, Paroxysmal Noc. Dyspnea, Edema, Lt Headedness Gastrointestinal: No: Nausea, Vomiting, Abdominal Pain, Diarrhea, Constipation, Melena, Hematochezia Genitourinary: No Dysuria, No Frequency, No Incontinence, No Hematuria, No Retention Musculoskeletal: No: other, neck pain, shoulder pain, arm pain, back pain, hand pain, leg pain, foot pain Skin: No Urticaria, No Rash Neurological: No: Weakness, Numbness, Incoordination, Change in speech, Confusion, Seizures PHYSICAL EXAM: GENERAL: alert, weak, awake oriented x 3 HEENT: EOMI, Sclera non icteric, moist mucosa NECK: Supple, no JVD, trachea midline LUNGS: Crackles right lobes. NO wheezing. No tachypnea HEART: Regular rate and rhythm. Normal S1 and S2, without murmurs ABD: Abdomen soft, nontender. Bowel sounds present EXT: No clubbing cyanosis or edema NEURO: Alert and oriented to person, follows commands Vital Signs (last 8hr) Date Time Temp Pulse Resp B/P (MAP) Pulse Ox O2 Delivery O2 Flow Rate FiO2 09/13/24 07:38 97.9 120 18 135/78 96 Nasal Cannula 4.0 09/13/24 06:22 125 18 09/13/24 06:21 125 18 N/Cannula Low lpm 4.0 36 09/13/24 03:29 97.9 111 20 155/98 95 Room Air LABS: Hematology Labs: Test 09/13/24 03:29 09/12/24 06:33 Range/Units White Blood Count 4.3 #L 4.8-10.8 K/uL Red Blood Count 2.88 L 4.50-6.20 MIL/uL Hemoglobin 8.2 L 14.0-18.0 g/dL Hematocrit 23.5 L 42-54 % Mean Corpuscular Volume 81.6 79-99 fL Mean Corpuscular Hemoglobin 28.5 27.0-33.0 pg Mean Corpuscular Hemoglobin Concent 34.9 32.0-36.0 g/dL Red Cell Distribution Width 16.8 H 11.0-15.5 % Platelet Count 124 #L 130-400 K/uL Mean Platelet Volume 9.5 7.5-10.5 fL Immature Granulocyte % (Auto) 3.8 H 0-1 % Neutrophils (%) (Auto) 78.3 H 40.0-77.0 % Lymphocytes (%) (Auto) 7.1 L 21.0-51.0 % Monocytes (%) (Auto) 10.6 3.0-13.0 % Eosinophils (%) (Auto) 0.0 0.0-8.0 % Basophils (%) (Auto) 0.2 0.0-5.0 % Neutrophils # (Auto) 3.3 1.8-7.7 K/uL Lymphocytes # (Auto) 0.3 L 1.0-4.8 K/uL Monocytes # (Auto) 0.5 0.1-1.0 K/uL Eosinophils # (Auto) 0.00 0.00-0.70 K/uL Basophils # (Auto) 0.01 0.00-0.20 K/uL Absolute Immature Granulocyte (auto 0.16 0-1 K/uL Nucleated Red Blood Cells 0.0 0.0-0.19 % Segmented Neutrophils % 60 40-70 % Band Neutrophils % 17 H 0-2 % Lymphocytes % (Manual) 10 L 22-44 % Monocytes % (Manual) 13 H 2-9 % Differential Comment MANUAL DIFFERENTIAL White Cell Morphology Comment Platelet Morphology Comment DECREASED Red Blood Cell Morphology See comments Chemistry Labs: Test 09/13/24 06:01 09/13/24 03:29 09/12/24 14:40 09/12/24 07:00 Range/Units Whole Blood Glucose 144 H 70-110 MG/DL Sodium Level 127 L 136-145 mmol/L Potassium Level 3.8 3.5-5.1 mmol/L Chloride Level 93 L 101-111 mmol/L Carbon Dioxide Level 28 21-32 mmol/L Blood Urea Nitrogen 50 H 7-18 mg/dL Creatinine 1.4 H 0.5-1.3 mg/dL Glomerular Filtration Rate Calc 55 >90 mL/min Random Glucose 165 H 70-105 mg/dL Total Calcium 8.8 8.5-10.1 mg/dL Magnesium Level 2.10 1.80-2.40 mg/dL Vitamin B12 Level 1520 H 193-986 pg/mL Vitamin D 25-Hydroxy 37.0 30.0-100.0 ng/mL Serum Osmolality 286 278-305 mOsm/kg Test 09/12/24 06:33 09/11/24 14:46 09/11/24 10:20 Range/Units Phosphorus Level 3.1 2.5-4.9 mg/dL Lactic Acid Level 2.4 0.8-2.5 mmol/L Procalcitonin 29.46 H 0.05-0.5 ng/mL DIAGNOSTICS / RADIOLOGY RESULTS: NA Disposition: per primary team Total patient care time exceeds 35 minutes excluding all procedures. RC MUÑOZ Sep 13, 2024 09:57
[2024-09-13] MEDS: metoPROLOL tartRATE 25 MG TAB PO SCH (10:00)
[2024-09-13] MEDS ORDERED: MEROPENEM 1 GM in 0.9%NACL 100ML 100 ML IVPB SCH (11:30)
--- NOTE | 2024-09-13 12:47 | HMCIMG ---
CT ABDOMEN/PELVIS W/O CONTRAST REASON: peg tube leaking COMPARISON: None. FINDINGS: There are bibasilar infiltrates. There are small bilateral pleural effusions. There are no focal liver lesions. There are normal-appearing kidneys.. Spleen and pancreas appear unremarkable. Gallbladder not well distended and not well visualized. There is a PEG tube in good position within the stomach. There is contrast in the colon from remote previous contrast procedure. Small bowel loops appear unremarkable. There is no evidence of obstruction. This includes normal appearance of the appendix There is no evidence of free intraperitoneal air. There are no focal fluid collections. There is a small amount of free fluid around the liver and spleen as well as in the right flank. Aorta and retroperitoneum appear normal as do pelvic soft tissue structures. The anterior abdominal wall is intact. Osseous structures appear unremarkable. IMPRESSION: 1. PEG tube appears in good position within the stomach. 2. Small amount of free fluid present throughout the liver and spleen as well as in the right flank. 3. Small bilateral pleural effusions with bibasilar atelectasis, there are also patchy bibasilar infiltrates. CT was performed with one or more following dose reduction techniques: automated exposure control, adjustment of the mA and kv according to patient's size, or use of a iterative reconstruction technique.
[2024-09-13] MEDS ORDERED: COMPOUND IV MISC 1 EACH IVSOLN MISC PRN (13:30)
[2024-09-13] MEDS: metoPROLOL tartRATE 1 MG/ML 5ML VIAL IV SCH (13:35)
--- NOTE | 2024-09-13 14:13 | PN ---
PROGRESS NOTE PROGRESS NOTE DATE OF PROGRESS NOTE: 09/13/24 SUBJECTIVE: Patient transferred to medical floor VITAL SIGNS Vital Signs Date Time Temp Pulse Resp B/P (MAP) Pulse Ox O2 Delivery O2 Flow Rate FiO2 09/13/24 13:35 116 132/70 09/13/24 11:36 98.2 18 96 Nasal Cannula 4.0 09/13/24 06:21 36 PHYSICAL EXAM: Physical Exam Physical Exam Physical Exam Dictation General: Confused, lethargic Head/Face: Normocephalic, atraumatic Eyes: PERRL ENT: oral cavity clear Neck: Trachea midline, supple Cardiovascular: RRR, normal S1/S2, No MRGs, no JVD Respiratory: CTAB, no respiratory distress, No rales or wheezes Abdomen: Soft, non-tender, non-distended, normal bowel sounds Skin: Warm, dry, normal turgor, no rash MS/Extremity: Pulses equal Neuro: Responds to noxious stimuli, lethargic LABORATORY: Laboratory Result(s) Test 09/12/24 14:40 09/12/24 16:17 09/12/24 19:54 09/13/24 03:29 Sodium Level 126 mmol/L (136-145) 127 mmol/L (136-145) Vitamin B12 Level 1520 pg/mL (193-986) Vitamin D 25-Hydroxy 37.0 ng/mL (30.0-100.0) Whole Blood Glucose 175 MG/DL (70-110) 172 MG/DL (70-110) White Blood Count 4.3 K/uL (4.8-10.8) Red Blood Count 2.88 MIL/uL (4.50-6.20) Hemoglobin 8.2 g/dL (14.0-18.0) Hematocrit 23.5 % (42-54) Mean Corpuscular Volume 81.6 fL (79-99) Mean Corpuscular Hemoglobin 28.5 pg (27.0-33.0) Mean Corpuscular Hemoglobin Concent 34.9 g/dL (32.0-36.0) Red Cell Distribution Width 16.8 % (11.0-15.5) Platelet Count 124 K/uL (130-400) Mean Platelet Volume 9.5 fL (7.5-10.5) Immature Granulocyte % (Auto) 3.8 % (0-1) Neutrophils (%) (Auto) 78.3 % (40.0-77.0) Lymphocytes (%) (Auto) 7.1 % (21.0-51.0) Monocytes (%) (Auto) 10.6 % (3.0-13.0) Eosinophils (%) (Auto) 0.0 % (0.0-8.0) Basophils (%) (Auto) 0.2 % (0.0-5.0) Neutrophils # (Auto) 3.3 K/uL (1.8-7.7) Lymphocytes # (Auto) 0.3 K/uL (1.0-4.8) Monocytes # (Auto) 0.5 K/uL (0.1-1.0) Eosinophils # (Auto) 0.00 K/uL (0.00-0.70) Basophils # (Auto) 0.01 K/uL (0.00-0.20) Absolute Immature Granulocyte (auto 0.16 K/uL (0-1) Nucleated Red Blood Cells 0.0 % (0.0-0.19) Potassium Level 3.8 mmol/L (3.5-5.1) Chloride Level 93 mmol/L (101-111) Carbon Dioxide Level 28 mmol/L (21-32) Blood Urea Nitrogen 50 mg/dL (7-18) Creatinine 1.4 mg/dL (0.5-1.3) Glomerular Filtration Rate Calc 55 mL/min (>90) Random Glucose 165 mg/dL (70-105) Total Calcium 8.8 mg/dL (8.5-10.1) Magnesium Level 2.10 mg/dL (1.80-2.40) Test 09/13/24 06:01 09/13/24 11:08 Whole Blood Glucose 144 MG/DL (70-110) 155 MG/DL (70-110) INPATIENT MEDS: Current Medications Medications Dose Ordered Sig/Elenita Start Time Stop Time Status Last Admin Acetaminophen 650 mg Q6H PRN 09/11/24 03:00 10/11/24 02:59 Acetaminophen 650 mg Q6H PRN 09/11/24 03:00 10/11/24 02:59 Lactulose 20 gm Q6H PRN 09/11/24 03:00 10/11/24 02:59 Docusate Sodium 100 mg BID PRN 09/11/24 03:00 10/11/24 02:59 Temazepam 15 mg HS PRN 09/11/24 03:00 10/11/24 02:59 Ondansetron HCl 4 mg Q6H PRN 09/11/24 03:00 10/11/24 02:59 Insulin Human Regular INSULIN SLIDING SCAL... ACHS 09/11/24 07:30 10/11/24 07:29 09/12/24 12:17 Sodium Chloride 1,000 mg TID 09/11/24 03:30 10/11/24 03:29 09/13/24 10:01 Vancomycin HCl 1 each AD 09/11/24 03:30 09/25/24 03:29 Ipratropium [place] 0.5 mg [id number] 09/11/24 04:00 10/11/24 03:59 09/13/24 11:02 Vancomycin HCl 750 mg Q24H 09/11/24 23:30 09/21/24 23:29 09/12/24 22:59 Metronidazole/ Sodium Chloride 500 mg Q8H 09/11/24 10:00 09/21/24 09:59 09/13/24 10:02 Insulin Glargine 10 units BID@0730,2100 09/11/24 10:30 10/11/24 10:29 09/13/24 06:30 Wound Care/ Dressing Products 1 APPL TID 09/11/24 21:00 10/11/24 20:59 09/13/24 10:01 Methylprednisolone Sodium Succinate 40 mg BID 09/13/24 21:00 10/12/24 11:59 Metoprolol Tartrate 5 mg Q6H 09/13/24 11:30 10/13/24 11:29 09/13/24 13:35 Meropenem 1 gm/ Sodium Chloride 100 ml @ 33.333 mls/ hr Q8H 09/13/24 13:30 09/23/24 13:29 PROBLEM LIST: (1) Hypoxia ICD Code: R09.02 - Hypoxemia (2) Bilateral pleural effusion ICD Code: J90 - Pleural effusion, not elsewhere classified (3) Elevated brain natriuretic peptide (BNP) level ICD Code: R79.89 - Other specified abnormal findings of blood chemistry (4) ADRY (acute kidney injury) ICD Code: N17.9 - Acute kidney failure, unspecified (5) Acute hypoxic respiratory failure ICD Code: J96.01 - Acute respiratory failure with hypoxia (6) Type 2 diabetes mellitus with hyperglycemia ICD Code: E11.65 - Type 2 diabetes mellitus with hyperglycemia PLAN: Aspiration pneumonia improving Continue his feeding through PEG Hyponatremia improving continue to monitor Acute hypoxic respiratory failure secondary to below Multifocal right lobe pneumonia-- suspect aspiration pneumonitis Hyponatremia with chronic history of hyponatremia Sepsis POA Hyperglycemia in the setting of type 2 DM Ischemic cardiomyopathy ejection fraction of 25% post AICD Dysphagia status post PEG tube placement- non compliance with NPO status Microcytic normochromic anemia Hx hypertension, GERD, dysphagia post PEG tube, CHF, ICM EF 20% post AICD, AFib, alcohol and cocaine abuse, GI bleeding MARKOS JORGENSEN MD Sep 13, 2024 14:13
[2024-09-13] MEDS: MEROPENEM 1 GM in 0.9%NACL 100ML 100 ML IVPB SCH (14:56)
--- NOTE | 2024-09-13 17:40 | CONS ---
GASTROENTEROLOGY CONSULTATION NOTE Date of Consultation: Sep 13, 2024 Time of Consultation: 17:40 History of Present Illness: This is a 64-year-old male with past medical history of iron deficiency anemia, calcium deficiency, insomnia, GERD, chronic dysphagia status post PEG placement who presented due to shortness of breath. Patient was found to have low oxygen saturation and hyponatremia. Sodium now 127. WBC 4.3, hemoglobin 8.2 with a platelet count of 124. Patient had leaking from PEG tube. Review of Systems: CONSTITUTIONAL: No malaise or change in sensation of wellbeing. ENMT: No rhinorrhea, otorrhea, sinus pain, ear ache. CARDIOVASCULAR: No angina, palpitations, orthopnea or paroxysmal dyspnea. RESPIRATORY: No SOB. GASTROINTESTINAL: No abdominal pain, nausea, vomiting, diarrhea, hematemesis, me jose antonio or change in the patient's habitual bowel movements consistency/number. GENITOURINARY: No dysuria, hematuria or change in bladder continence. MUSCULOSKELETAL: No new muscle pain or decrease in muscular strength. No new joint swelling, redness or tenderness. SKIN: No new rash. Past Medical History: [ ] Past Surgical History: [ ] Past Social History: [ ] Family History: [ ] Coded Allergies: No Known Allergies (Verified Allergy, Unknown, 12/08/14) sucralfate (Unverified Allergy, Unknown, 09/10/24) Physical Exam: GEN: Awake, alert, oriented in person, time and place, and in no acute distress. HEENT: No sinus tenderness. Tympanic membranes were not examined. No rhinorrhea. Oral pharyngeal mucosa is pink, moist and within normal limits. Neck is supple with no cervical lymphadenopathy, thyromegaly or JVD. CHEST: Inspection, palpation and percussion of the chest were unremarkable. Lung auscultation revealed normal breath sounds bilaterally. CARDIAC: PMI is within normal limits. Heart sounds are regular. Normal S1, S2. No gallop or murmur. ABD: Soft, non-tender and not distended. No peritoneal signs on palpation. No organomegaly. Normal bowel sounds. EXT: No cyanosis or clubbing. No edema. SKIN: Intact. No rashes. JOINTS: No evidence of synovitis or acute arthritis. NEURO: Alert and oriented to name, place and person. Cranial nerve examination is unremarkable. No focal motor deficits. Normal speech. Gait is normal. Strength is normal. Vital Sign (Last 24 Hours) 09/13/24 09/13/24 09/13/24 06:21 11:36 13:35 Temp 98.2 Pulse 116 Resp 18 B/P (MAP) 132/70 Pulse Ox 96 O2 Delivery Nasal Cannula O2 Flow Rate 4.0 FiO2 36 Intake & Output (last 24hrs) 09/12/24 09/12/24 09/13/24 15:00 23:00 07:00 Intake Total 700.0 ml 1020.0 ml 100.0 ml Balance 700.0 ml 1020.0 ml 100.0 ml Laboratory: [ ] Laboratory: Test 09/13/24 17:08 09/13/24 03:29 09/12/24 14:40 09/12/24 07:00 Range/Units Whole Blood Glucose 170 H 70-110 MG/DL White Blood Count 4.3 #L 4.8-10.8 K/uL Red Blood Count 2.88 L 4.50-6.20 MIL/uL Hemoglobin 8.2 L 14.0-18.0 g/dL Hematocrit 23.5 L 42-54 % Mean Corpuscular Volume 81.6 79-99 fL Mean Corpuscular Hemoglobin 28.5 27.0-33.0 pg Mean Corpuscular Hemoglobin Concent 34.9 32.0-36.0 g/dL Red Cell Distribution Width 16.8 H 11.0-15.5 % Platelet Count 124 #L 130-400 K/uL Mean Platelet Volume 9.5 7.5-10.5 fL Immature Granulocyte % (Auto) 3.8 H 0-1 % Neutrophils (%) (Auto) 78.3 H 40.0-77.0 % Lymphocytes (%) (Auto) 7.1 L 21.0-51.0 % Monocytes (%) (Auto) 10.6 3.0-13.0 % Eosinophils (%) (Auto) 0.0 0.0-8.0 % Basophils (%) (Auto) 0.2 0.0-5.0 % Neutrophils # (Auto) 3.3 1.8-7.7 K/uL Lymphocytes # (Auto) 0.3 L 1.0-4.8 K/uL Monocytes # (Auto) 0.5 0.1-1.0 K/uL Eosinophils # (Auto) 0.00 0.00-0.70 K/uL Basophils # (Auto) 0.01 0.00-0.20 K/uL Absolute Immature Granulocyte (auto 0.16 0-1 K/uL Nucleated Red Blood Cells 0.0 0.0-0.19 % Sodium Level 127 L 136-145 mmol/L Potassium Level 3.8 3.5-5.1 mmol/L Chloride Level 93 L 101-111 mmol/L Carbon Dioxide Level 28 21-32 mmol/L Blood Urea Nitrogen 50 H 7-18 mg/dL Creatinine 1.4 H 0.5-1.3 mg/dL Glomerular Filtration Rate Calc 55 >90 mL/min Random Glucose 165 H 70-105 mg/dL Total Calcium 8.8 8.5-10.1 mg/dL Magnesium Level 2.10 1.80-2.40 mg/dL Vitamin B12 Level 1520 H 193-986 pg/mL Vitamin D 25-Hydroxy 37.0 30.0-100.0 ng/mL Serum Osmolality 286 278-305 mOsm/kg Test 09/12/24 06:33 Range/Units Segmented Neutrophils % 60 40-70 % Band Neutrophils % 17 H 0-2 % Lymphocytes % (Manual) 10 L 22-44 % Monocytes % (Manual) 13 H 2-9 % Differential Comment MANUAL DIFFERENTIAL White Cell Morphology Comment Platelet Morphology Comment DECREASED Red Blood Cell Morphology See comments Phosphorus Level 3.1 2.5-4.9 mg/dL Current Medications Medications (Trade) Dose Ordered Sig/Elenita Route PRN Reason Start Time Stop Time Status Last Admin Dose Admin Acetaminophen (TYLenol 325MG TAB) 650 mg Q6H PRN PO FEVER/MILD PAIN LEVEL 1-3 09/11/24 03:00 10/11/24 02:59 Acetaminophen (TYLenol 650MG SUPPOSITORY) 650 mg Q6H PRN RC FEVER / MILD PAIN 1-3 IF NPO 09/11/24 03:00 10/11/24 02:59 Albuterol Sulfate (Proventil 0.083% 2.5mg/3ml) 2.5 mg [id number] IH 09/11/24 04:00 09/13/24 07:10 DC 09/13/24 06:20 2.5 MG Cefepime HCl (MAXipime 1 GM vial) 1 gm Q24H IVPB 09/11/24 08:30 09/11/24 08:47 DC Dextrose 1,000 ml @ 100 mls/hr Q10H IV 09/12/24 10:00 09/12/24 14:54 DC 09/12/24 10:10 100 MLS/HR Docusate Sodium (COLace 100MG CAP) 100 mg BID PRN PO c 09/11/24 03:00 10/11/24 02:59 Insulin Glargine (LANtus 100 UNITS/ML 10 ML VIAL) 10 units BID@0730,2100 SQ 09/11/24 10:30 10/11/24 10:29 09/13/24 06:30 10 UNITS Insulin Human Regular (humuLIN R 100 UNIT/ML 3ML) INSULIN SLIDING SCAL... ACHS SQ 09/11/24 07:30 10/11/24 07:29 09/12/24 12:17 4 UNIT Ipratropium [place] (AtrovENT UD) 0.5 mg [id number] IH 09/11/24 04:00 10/11/24 03:59 09/13/24 11:02 0.5 MG Lactulose (Constulose 20gm/ 30ml Udcup) 20 gm Q6H PRN PO CONSTIPATION 09/11/24 03:00 10/11/24 02:59 Levofloxacin (LEvaquIN 500MG TAB) 250 mg DAILY PO 09/12/24 09:00 09/13/24 11:06 DC 09/13/24 10:00 250 MG Meropenem 1 gm/ Sodium Chloride 100 ml @ 33.333 mls/ hr Q8H IVPB 09/13/24 11:30 09/13/24 13:34 DC Meropenem 1 gm/ Sodium Chloride 100 ml @ 33.333 mls/ hr Q8H IVPB 09/13/24 13:30 09/23/24 13:29 09/13/24 14:56 33.333 MLS/HR Methylprednisolone Sodium Succinate (Solu-medROL 40MG) 40 mg BID IVP 09/13/24 21:00 10/12/24 11:59 Methylprednisolone Sodium Succinate (Solu-medROL 40MG) 40 mg Q8H IVP 09/12/24 12:00 09/13/24 11:06 DC 09/13/24 03:48 40 MG Methylprednisolone Sodium Succinate (Solu-medROL 40MG) 60 mg Q8H IVP 09/11/24 12:00 09/12/24 10:48 DC 09/12/24 05:34 60 MG Methylprednisolone Sodium Succinate (Solu-medROL 125MG) 60 mg Q8H IVP 09/11/24 04:00 09/11/24 08:46 DC 09/11/24 04:32 60 MG Metoprolol Tartrate (loprESSOR) 5 mg Q6H IV 09/13/24 11:30 10/13/24 11:29 09/13/24 13:35 5 MG Metoprolol Tartrate (loprESSOR) 12.5 mg BID PO 09/12/24 10:00 09/13/24 07:12 DC 09/12/24 19:50 12.5 MG Metoprolol Tartrate (loprESSOR) 25 mg Q8H PO 09/13/24 07:30 09/13/24 07:44 DC Metoprolol Tartrate (loprESSOR) 25 mg Q8H PO 09/13/24 09:00 09/13/24 11:07 DC 09/13/24 10:00 25 MG Metronidazole/ Sodium Chloride (flaGYL) 500 mg Q8H IV 09/11/24 10:00 09/21/24 09:59 09/13/24 10:02 500 MG Ondansetron HCl (zoFRAN 4MG INJ) 4 mg Q6H PRN IVP NAUSEA/VOMITING 09/11/24 03:00 10/11/24 02:59 Piperacillin Sod/ Tazobactam Sod (Zosyn 3.375gm+NS 50ml) 3.375 gm Q12H IVPB 09/10/24 23:30 09/11/24 09:43 DC 09/11/24 00:16 3.375 GM Sodium Chloride 100 ml @ 0 mls/hr PROTOCOL IV 09/10/24 23:30 09/11/24 09:43 DC 09/10/24 23:52 999 MLS/HR Sodium Chloride 1,000 ml @ 50 mls/hr Q20H IV 09/11/24 03:30 09/12/24 09:35 DC 09/11/24 03:59 100 MLS/HR Sodium Chloride (Sodium Chloride) 1,000 mg TID PO 09/11/24 03:30 10/11/24 03:29 09/13/24 10:01 1,000 MG Temazepam (restORIL 15 MG CAP) 15 mg HS PRN PO INSOMNIA/SLEEP 09/11/24 03:00 10/11/24 02:59 Vancomycin HCl (Vancomycin 750mg) 750 mg Q24H IVPB 09/11/24 23:30 09/21/24 23:29 09/12/24 22:59 750 MG Vancomycin HCl (Vancomycin Protocol) 1 each AD IV 09/11/24 03:30 09/25/24 03:29 Wound Care/ Dressing Products (Venelex Ointment) 1 APPL TID TP 09/11/24 21:00 10/11/24 20:59 09/13/24 14:56 1 GM Diagnostics / Radiology: [COPY/PASTE HERE IF NO REPORTS PLEASE DELETE SECTION] Assessment: PEG malfunction Anemia Plan: EGD with possible peg exchange in [employer] Sep 13, 2024 17:40
[2024-09-13] MEDS: Solu-medROL 40MG VIAL IVP SCH (22:00)
[2024-09-14] VITALS (12 sets, daily range): BP systolic 126–143; BP diastolic 71–87; PULSE 74–117; RESP 16–20; TEMP 97.4–98.9; O2SAT 93–98
[2024-09-14 05:11] LABS: BASOPHILS # (AUTO) 0.03 K/uL (0.00-0.20); BASOPHILS % (AUTO) 0.5 % (0.0-5.0); HEMATOCRIT 25.9 % (42-54); IMMATURE GRANULOCYTE ABSOLUTE 0.36 K/uL (0-1); LYMPHOCYTES # (AUTO) 0.4 K/uL (1.0-4.8); LYMPHOCYTES % (AUTO) 5.9 % (21.0-51.0); MEAN CORPUSCULAR HEMOGLOBIN 26.9 pg (27.0-33.0); MEAN CORPUSCULAR HGB CONC 32.4 g/dL (32.0-36.0); MONOCYTES # (AUTO) 0.3 K/uL (0.1-1.0); MONOCYTES % (AUTO) 5.6 % (3.0-13.0); NEUTROPHILS # (AUTO) 4.9 K/uL (1.8-7.7); NEUTROPHILS % (AUTO) 81.9 % (40.0-77.0); PLATELET COUNT (AUTO) 139 K/uL (130-400); RED BLOOD CELL COUNT(AUTO) 3.12 MIL/uL (4.50-6.20); WHITE BLOOD COUNT (AUTO) 5.9 K/uL (4.8-10.8)
[2024-09-14 05:35] LABS: CREATININE 1.4 mg/dL (0.5-1.3); POTASSIUM 4.3 mmol/L (3.5-5.1)
--- NOTE | 2024-09-14 09:39 | EKG ---
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 : 1960 Requested By: DAISY BIRMINGHAM Order Number: [id number] Reading MD: Bryon Francisco Measurements Intervals [place] Rate: 115 P: 0 VT: 0 QRS: 70 QRSD: 103 T: 258 QT: 384 QTc: 530 Interpretive Statements Atrial flutter Ventricular premature complex Anterior infarct, old Nonspecific T abnormalities, lateral leads Prolonged QT interval Compared to ECG 09/10/2024 22:37:21 Ventricular premature complex(es) now present Myocardial infarct finding now present Prolonged QT interval now present AV block, advanced (high-grade) no longer present T-wave abnormality still present Electronically Signed On 09-17-2024 13:08:07 HEAD GOLF COACH by Bryon Francisco Please click the below link to view image of tracing.
--- NOTE | 2024-09-14 11:03 | CONS ---
[facility] CARDIOLOGY CONSULTATION NOTE Date Patient Seen: Sep 14, 2024 Time of Visit: 10:37 Reason for Consultation: [Atrial fibrillation ] History of Present Illness: [ 64-year-old male significant past medical history of iron deficiency anemia, GERD, chronic dysphagia status post PEG tube placement, HFrEF (EF 45-50%) post AICD , paroxysmal atrial fibrillation, crack cocaine abuse, who presents today with with shortness of breath and malfunctioning PEG tube. Pt was admitted and has plans for PEG tube revision. Of note, patient apparently drank some water and noted worsening work of breathing and no productive cough. Patient was found to have low oxygen saturation and hyponatremia and was refferd for suspected aspiration and PEG tub revision. Initial labs revealed a Sodium now 127. WBC 4.3, hemoglobin 8.2 with a platelet count of 124. Initial Trop 89 and has no cardiac symptoms at this time . Pt was pending PEG revision with GI, but his presenting ECG that was concerning for atrial flutter/atrial fibrillation and th procedure was aborted. Cariology was consulted for preop eval and rate control. At the bedside upon further review of telemetry strips and repeat ECG we determined the patient has atrial tachycardia heart rate of 103 beats per minute, at the moment of our evaluation he denies any chest pain, palpitations, dyspnea or any other anginal equivalent. The patient underwent 2D echocardiogram revealed severely dilated right atrium, EF 45-50%, moderate tricuspid regurgitation, (09/11/2024), this shows a systolic recovery compared to prior echo EF 25-30% (06/11/2024). Of note, on previous assessment the patient was deferred the use of beta-blockers due to ongoing crack cocaine use. His current UDS is negative and hes admimate he has quit cocaine. On prior admissions the patient was lost to follow up at clinic. Cardiology was consulted for pre operative cardiovascular assessment and Afib] Past Medical History: [Refer to chart ] Past Surgical History: [Refer to HPI ] Family History: [Refer to HPI ] Social History: [Refer to HPI ] Habits: [Never] smoker. [Denies] alcohol consumption. [Denies] illicit drug use Review of Systems: A review of 12 point system was negative set per HPI Physical Examination: GENERAL: [No acute distress.] HEAD: [Normal with no signs of head trauma.] EYES: [PERRLA, EOMI, conjunctiva and sclera normal.] ENT: [Hearing grossly intact, normal oropharynx.] NECK: [Supple without JVD. There is no tenderness, lymphadenopathy, or masses. N o thyromegaly. Normal carotid upstrokes without bruits.] LUNGS: [Clear breath sounds bilaterally. No wheezes, or rhonchi.] HEART: [Tachycardic. Normal S1 and S2 without mumurs, gallop or rub.] VASC: [Peripheral pulses +2 bilaterally.] ABD: [Bowel sounds normal, soft, nontender, no masses, no organomegaly. No audible bruits.] : [Not examined] LYMPH: [No lymphadenopathy noted.] EXT: [No clubbing, cyanosis or edema.] SKIN: [No rashes or lesions noted.] NEURO: [Awake, alert, and oriented x3. No focal sensory or strength deficits noted.] Vital Signs (last 8hr) Date Time Temp Pulse Resp B/P (MAP) Pulse Ox O2 Delivery O2 Flow Rate FiO2 09/14/24 08:18 97.5 104 16 129/77 95 Nasal Cannula 2.0 09/14/24 06:14 111 123/71 09/14/24 04:00 98.1 110 20 126/71 100 Room Air Laboratory: [ ] Hematology Labs: Test 09/14/24 04:49 Range/Units White Blood Count 5.9 4.8-10.8 K/uL Red Blood Count 3.12 L 4.50-6.20 MIL/uL Hemoglobin 8.4 L 14.0-18.0 g/dL Hematocrit 25.9 L 42-54 % Mean Corpuscular Volume 83.0 79-99 fL Mean Corpuscular Hemoglobin 26.9 L 27.0-33.0 pg Mean Corpuscular Hemoglobin Concent 32.4 32.0-36.0 g/dL Red Cell Distribution Width 17.0 H 11.0-15.5 % Platelet Count 139 130-400 K/uL Mean Platelet Volume 9.5 7.5-10.5 fL Immature Granulocyte % (Auto) 6.1 H 0-1 % Neutrophils (%) (Auto) 81.9 H 40.0-77.0 % Lymphocytes (%) (Auto) 5.9 L 21.0-51.0 % Monocytes (%) (Auto) 5.6 3.0-13.0 % Eosinophils (%) (Auto) 0.0 0.0-8.0 % Basophils (%) (Auto) 0.5 0.0-5.0 % Neutrophils # (Auto) 4.9 1.8-7.7 K/uL Lymphocytes # (Auto) 0.4 L 1.0-4.8 K/uL Monocytes # (Auto) 0.3 0.1-1.0 K/uL Eosinophils # (Auto) 0.00 0.00-0.70 K/uL Basophils # (Auto) 0.03 0.00-0.20 K/uL Absolute Immature Granulocyte (auto 0.36 0-1 K/uL Nucleated Red Blood Cells 0.0 0.0-0.19 % Chemistry Labs: Test 09/14/24 05:51 09/14/24 04:49 09/13/24 03:29 09/12/24 14:40 Range/Units Whole Blood Glucose 126 H 70-110 MG/DL Sodium Level 132 L 136-145 mmol/L Potassium Level 4.3 3.5-5.1 mmol/L Chloride Level 97 L 101-111 mmol/L Carbon Dioxide Level 28 21-32 mmol/L Blood Urea Nitrogen 52 H 7-18 mg/dL Creatinine 1.4 H 0.5-1.3 mg/dL Glomerular Filtration Rate Calc 55 >90 mL/min Random Glucose 126 H 70-105 mg/dL Total Calcium 8.8 8.5-10.1 mg/dL Procalcitonin 6.25 H 0.05-0.5 ng/mL Magnesium Level 2.10 1.80-2.40 mg/dL Vitamin B12 Level 1520 H 193-986 pg/mL Vitamin D 25-Hydroxy 37.0 30.0-100.0 ng/mL Diagnostics / Radiology: [Copy/Paste Echos/Imaging Report here] Assessment: [Acute hypoxic respiratory failure secondary to below Multifocal right lobe pneumonia-- suspect aspiration pneumonitis (+) ESBL Klebsiella pneumoniae Hyponatremia with chronic history of hyponatremia Crack cocaine abuse Sepsis present on admission Uncontrolled type 2 diabetes mellitus HFrEF (EF 45-50 %) post AICD ( done years ago) Paroxysmal atrial fibrillation Dysphagia status post PEG tube placement- non compliance with NPO status Microcytic normochromic anemia Hypertension Atrial tachycardia Plan: [# Paroxysmal atrial fibrillation/Atach The patient initially presents with with shortness of breath. Patient was from the residential and has a history of aspiration which is driving his tachycardia. Patient apparently drank some water in had worsening work of breathing. Patient was found to have low oxygen saturation and hyponatremia. Sodium now 127. WBC 4.3, hemoglobin 8.2 with a platelet count of 124, Trop 89 . Patient had leaking from PEG tube and GI is planning PEG revision but was deferred due to Atach. Upon further workup the patient underwent ECG that was concerning for atrial flutter/atrial fibrillation, but on further review ECG it appears to be Atrial tachycardia. He denies any chest pain, palpitations, dyspnea or any other anginal equivalent. The patient underwent 2D echocardiogram revealed severely dilated right atrium, EF 45-50%, moderate tricuspid regurgitation, (09/11/2024)] On previous assessment the patient was actively using crack cocaine, on this admission his UDS has been negative and states hes quit drug use To optimize rate control we will start Toprol-XL 50 mg every daily p.o. Keep on telemetry and monitor/replace lytes as needed. Tachycardia driven by underlying suspected aspiration and poor PO intake If the patient remains rate controlled we will sign off in the next 24 hours Preop Eval: The patient is considered to be moderate to high risk for a low risk noncardiac surgery At this time there is no contraindication to go forward with EGD/PEG revision as the benefits outweigh the risks from the CV standpoint Prior to DC resume home anticoagulation for his h/o Afib once deemed safe by GI following EGD No need for further testing at this time #HFrEF (EF 45-50 %) post AICD ( done years ago) Ischemic cardiomyopathy During our assessment the patient appears to be euvolemic and compensated on exam He has a prior 2D echocardiogram from 06/11/2024 with EF 25-30% with repeat TTE revealing systolic recovery His latest 2D echocardiogram shows systolic recovery with an EF of 45-50%, severely dilated right atrium, moderate tricuspid regurgitation GDMT: Start Toprol-XL 50 mg daily and losartan 25 mg daily Stric I/Os and daily weights and monitor/replace lytes as needed. Thank you for this consult cardiology will continue to follow along for rate control Brian Cantrell MD ATTESTATION BY PHYSICIAN I have seen and examined the patient, reviewed the above documentation, participated in medical decision making, made necessary modifications, and agree with the treatment plan as documented by my mid-level provider above. MD VINNIE Garcia JAMES R MD Sep 14, 2024 11:03
--- NOTE | 2024-09-14 18:23 | PN ---
GASTROENTEROLOGY PROGRESS NOTE Date of Consultation: Sep 14, 2024 Time of Consultation: 18:23 Events / Notes: No acute events overnight. PEG changed at bedside without difficulty. Review of Systems: CONSTITUTIONAL: No malaise or change in sensation of wellbeing. ENMT: No rhinorrhea, otorrhea, sinus pain, ear ache. CARDIOVASCULAR: No angina, palpitations, orthopnea or paroxysmal dyspnea. RESPIRATORY: No SOB. GASTROINTESTINAL: No abdominal pain, nausea, vomiting, diarrhea, hematemesis, melena or change in the patient's habitual bowel movements consistency/number. GENITOURINARY: No dysuria, hematuria or change in bladder continence. MUSCULOSKELETAL: No new muscle pain or decrease in muscular strength. No new joint swelling, redness or tenderness. SKIN: No new rash. Physical Exam: GEN: Awake, alert, oriented in person, time and place, and in no acute distress. HEENT: No sinus tenderness. Tympanic membranes were not examined. No rhinorrhea. Oral pharyngeal mucosa is pink, moist and within normal limits. Neck is supple with no cervical lymphadenopathy, thyromegaly or JVD. CHEST: Inspection, palpation and percussion of the chest were unremarkable. Lung auscultation revealed normal breath sounds bilaterally. CARDIAC: PMI is within normal limits. Heart sounds are regular. Normal S1, S2. No gallop or murmur. ABD: Soft, non-tender and not distended. No peritoneal signs on palpation. No organomegaly. Normal bowel sounds. EXT: No cyanosis or clubbing. No edema. SKIN: Intact. No rashes. JOINTS: No evidence of synovitis or acute arthritis. NEURO: Alert and oriented to name, place and person. Cranial nerve examination is unremarkable. No focal motor deficits. Normal speech. Gait is normal. Strength is normal. Vital Signs (last 8hr) Date Time Temp Pulse Resp B/P (MAP) Pulse Ox O2 Delivery O2 Flow Rate FiO2 09/14/24 17:00 97.5 104 16 136/87 99 Nasal Cannula 2.0 09/14/24 11:54 97.3 117 16 140/78 92 Nasal Cannula 2.0 09/14/24 11:46 117 140/78 09/14/24 11:23 115 20 N/Cannula Low lpm 4.0 36 09/14/24 11:23 115 20 Laboratory: [ ] Laboratory: Test 09/14/24 16:00 09/14/24 04:49 09/13/24 22:33 09/13/24 03:29 Range/Units Whole Blood Glucose 117 H 70-110 MG/DL White Blood Count 5.9 4.8-10.8 K/uL Red Blood Count 3.12 L 4.50-6.20 MIL/uL Hemoglobin 8.4 L 14.0-18.0 g/dL Hematocrit 25.9 L 42-54 % Mean Corpuscular Volume 83.0 79-99 fL Mean Corpuscular Hemoglobin 26.9 L 27.0-33.0 pg Mean Corpuscular Hemoglobin Concent 32.4 32.0-36.0 g/dL Red Cell Distribution Width 17.0 H 11.0-15.5 % Platelet Count 139 130-400 K/uL Mean Platelet Volume 9.5 7.5-10.5 fL Immature Granulocyte % (Auto) 6.1 H 0-1 % Neutrophils (%) (Auto) 81.9 H 40.0-77.0 % Lymphocytes (%) (Auto) 5.9 L 21.0-51.0 % Monocytes (%) (Auto) 5.6 3.0-13.0 % Eosinophils (%) (Auto) 0.0 0.0-8.0 % Basophils (%) (Auto) 0.5 0.0-5.0 % Neutrophils # (Auto) 4.9 1.8-7.7 K/uL Lymphocytes # (Auto) 0.4 L 1.0-4.8 K/uL Monocytes # (Auto) 0.3 0.1-1.0 K/uL Eosinophils # (Auto) 0.00 0.00-0.70 K/uL Basophils # (Auto) 0.03 0.00-0.20 K/uL Absolute Immature Granulocyte (auto 0.36 0-1 K/uL Nucleated Red Blood Cells 0.0 0.0-0.19 % Sodium Level 132 L 136-145 mmol/L Potassium Level 4.3 3.5-5.1 mmol/L Chloride Level 97 L 101-111 mmol/L Carbon Dioxide Level 28 21-32 mmol/L Blood Urea Nitrogen 52 H 7-18 mg/dL Creatinine 1.4 H 0.5-1.3 mg/dL Glomerular Filtration Rate Calc 55 >90 mL/min Random Glucose 126 H 70-105 mg/dL Total Calcium 8.8 8.5-10.1 mg/dL Procalcitonin 6.25 H 0.05-0.5 ng/mL Vancomycin Level Trough 16.1 10.0-20.0 UG/ML Magnesium Level 2.10 1.80-2.40 mg/dL Current Medications Medications (Trade) Dose Ordered Sig/Elenita Route PRN Reason Start Time Stop Time Status Last Admin Dose Admin Acetaminophen (TYLenol 325MG TAB) 650 mg Q6H PRN PO FEVER/MILD PAIN LEVEL 1-3 09/11/24 03:00 10/11/24 02:59 Acetaminophen (TYLenol 650MG SUPPOSITORY) 650 mg Q6H PRN RC FEVER / MILD PAIN 1-3 IF NPO 09/11/24 03:00 10/11/24 02:59 Albuterol Sulfate (Proventil 0.083% 2.5mg/3ml) 2.5 mg [id number] IH 09/11/24 04:00 09/13/24 07:10 DC 09/13/24 06:20 2.5 MG Cefepime HCl (MAXipime 1 GM vial) 1 gm Q24H IVPB 09/11/24 08:30 09/11/24 08:47 DC Dextrose 1,000 ml @ 100 mls/hr Q10H IV 09/12/24 10:00 09/12/24 14:54 DC 09/12/24 10:10 100 MLS/HR Docusate Sodium (COLace 100MG CAP) 100 mg BID PRN PO c 09/11/24 03:00 10/11/24 02:59 Insulin Glargine (LANtus 100 UNITS/ML 10 ML VIAL) 10 units BID@0730,2100 SQ 09/11/24 10:30 10/11/24 10:29 09/13/24 06:30 10 UNITS Insulin Human Regular (humuLIN R 100 UNIT/ML 3ML) INSULIN SLIDING SCAL... ACHS SQ 09/11/24 07:30 10/11/24 07:29 09/12/24 12:17 4 UNIT Ipratropium Imperial (AtrovENT UD) 0.5 mg [id number] IH 09/11/24 04:00 10/11/24 03:59 09/14/24 11:21 0.5 MG Lactulose (Constulose 20gm/ 30ml Udcup) 20 gm Q6H PRN PO CONSTIPATION 09/11/24 03:00 10/11/24 02:59 Levofloxacin (LEvaquIN 500MG TAB) 250 mg DAILY PO 09/12/24 09:00 09/13/24 11:06 DC 09/13/24 10:00 250 MG Meropenem 1 gm/ Sodium Chloride 100 ml @ 33.333 mls/ hr Q8H IVPB 09/13/24 11:30 09/13/24 13:34 DC Meropenem 1 gm/ Sodium Chloride 100 ml @ 33.333 mls/ hr Q8H IVPB 09/13/24 13:30 09/23/24 13:29 09/14/24 14:27 33.333 MLS/HR Methylprednisolone Sodium Succinate (Solu-medROL 40MG) 40 mg BID IVP 09/13/24 21:00 10/12/24 11:59 09/14/24 09:32 40 MG Methylprednisolone Sodium Succinate (Solu-medROL 40MG) 40 mg Q8H IVP 09/12/24 12:00 09/13/24 11:06 DC 09/13/24 03:48 40 MG Methylprednisolone Sodium Succinate (Solu-medROL 40MG) 60 mg Q8H IVP 09/11/24 12:00 09/12/24 10:48 DC 09/12/24 05:34 60 MG Methylprednisolone Sodium Succinate (Solu-medROL 125MG) 60 mg Q8H IVP 09/11/24 04:00 09/11/24 08:46 DC 09/11/24 04:32 60 MG Metoprolol Tartrate (loprESSOR) 5 mg Q6H IV 09/13/24 11:30 09/14/24 14:32 DC 09/14/24 11:46 5 MG Metoprolol Tartrate (loprESSOR) 12.5 mg BID PO 09/12/24 10:00 09/13/24 07:12 DC 09/12/24 19:50 12.5 MG Metoprolol Tartrate (loprESSOR) 25 mg Q8H PO 09/13/24 07:30 09/13/24 07:44 DC Metoprolol Tartrate (loprESSOR) 25 mg Q8H PO 09/13/24 09:00 09/13/24 11:07 DC 09/13/24 10:00 25 MG Metoprolol Tartrate (loprESSOR) 50 mg BID PO 09/14/24 21:00 10/14/24 20:59 Metronidazole/ Sodium Chloride (flaGYL) 500 mg Q8H IV 09/11/24 10:00 09/21/24 09:59 09/14/24 11:45 500 MG Ondansetron HCl (zoFRAN 4MG INJ) 4 mg Q6H PRN IVP NAUSEA/VOMITING 09/11/24 03:00 10/11/24 02:59 Piperacillin Sod/ Tazobactam Sod (Zosyn 3.375gm+NS 50ml) 3.375 gm Q12H IVPB 09/10/24 23:30 09/11/24 09:43 DC 09/11/24 00:16 3.375 GM Sodium Chloride 100 ml @ 0 mls/hr PROTOCOL IV 09/10/24 23:30 09/11/24 09:43 DC 09/10/24 23:52 999 MLS/HR Sodium Chloride 1,000 ml @ 50 mls/hr Q20H IV 09/11/24 03:30 09/12/24 09:35 DC 09/11/24 03:59 100 MLS/HR Sodium Chloride (Sodium Chloride) 1,000 mg TID PO 09/11/24 03:30 10/11/24 03:29 09/14/24 14:27 1,000 MG Temazepam (restORIL 15 MG CAP) 15 mg HS PRN PO INSOMNIA/SLEEP 09/11/24 03:00 10/11/24 02:59 Vancomycin HCl (Vancomycin 750mg) 750 mg Q24H IVPB 09/11/24 23:30 09/21/24 23:29 09/14/24 00:22 750 MG Vancomycin HCl (Vancomycin Protocol) 1 each AD IV 09/11/24 03:30 09/25/24 03:29 Wound Care/ Dressing Products (Venelex Ointment) 1 APPL TID TP 09/11/24 21:00 10/11/24 20:59 09/14/24 14:26 1 GM Diagnostics / Radiology: [COPY/PASTE HERE IF NO REPORTS PLEASE DELETE SECTION] Assessment: PEG malfunction Anemia Plan: Resume peg feedings [employer] Sep 14, 2024 18:23
--- NOTE | 2024-09-14 20:27 | PN ---
[facility] PROGRESS NOTE Date Patient Seen: Sep 14, 2024 Time of Visit: 20:22 Supervising Physician: [ MARIANO GONZALES MD ] Primary Care Physician: Sofy Fields Outpatient Specialists: [facility] Inpatient Consults: Tanner Rodriguez PROBLEM LIST: Acute hypoxic respiratory failure secondary to below Multifocal right lobe pneumonia-- suspect aspiration pneumonitis (+) ESBL Klebsiella pneumoniae Hyponatremia with chronic history of hyponatremia Sepsis present on admission Chronic atrial fibrillation Hyperglycemia in the setting of type 2 DM Ischemic cardiomyopathy ejection fraction of 25% post AICD Dysphagia status post PEG tube placement- non compliance with NPO status Microcytic normochromic anemia Hypertension GERD History of GI bleeding ETOH and cocaine abuse INTERVAL HISTORY: Mr. Link is seen and evaluated by me, the events of the last 24 hours noted Patient with flat affect, withdrawn, no distress, but remains on 3 liters O2 weak, severely deconditioned. Not speaking Has cough, congestion, fatigue No fevers No nausea, no vomiting reported Laboratory results reviewed at bedside with nurse Most recent chest x-ray reviewed at bedside REVIEW OF SYSTEMS: General: No Fever, No Chills, No Night Sweats, No Fatigue, No Malaise, No Appetite HEENT: No Head Aches, No Visual Changes, No Eye Pain, No Ear Pain, No Dysphasia, No Sinus Congestion, No Post Nasal Drip, No Sore Throat Pulmonary: Described in interval history Cardiovascular: No: Chest Pain, Palpitations, Orthopnea, Paroxysmal Noc. Dyspnea, Edema, Lt Headedness Gastrointestinal: No: Nausea, Vomiting, Abdominal Pain, Diarrhea, Constipation, Melena, Hematochezia Genitourinary: No Dysuria, No Frequency, No Incontinence, No Hematuria, No Retention Musculoskeletal: No: other, neck pain, shoulder pain, arm pain, back pain, hand pain, leg pain, foot pain Skin: No Urticaria, No Rash Neurological: No: Weakness, Numbness, Incoordination, Change in speech, Confusion, Seizures PHYSICAL EXAM: GENERAL: alert, weak, awake oriented x 3 HEENT: EOMI, Sclera non icteric, moist mucosa NECK: Supple, no JVD, trachea midline LUNGS: Crackles right lobes. NO wheezing. No tachypnea HEART: Regular rate and rhythm. Normal S1 and S2, without murmurs ABD: Abdomen soft, nontender. Bowel sounds present EXT: No clubbing cyanosis or edema NEURO: Alert and oriented to person, follows commands Vital Signs (last 8hr) Date Time Temp Pulse Resp B/P (MAP) Pulse Ox O2 Delivery O2 Flow Rate FiO2 09/14/24 18:48 113 17 N/Cannula Low lpm 2.0 28 09/14/24 18:47 113 17 09/14/24 17:00 97.5 104 16 136/87 99 Nasal Cannula 2.0 LABS: Hematology Labs: Test 09/14/24 04:49 Range/Units White Blood Count 5.9 4.8-10.8 K/uL Red Blood Count 3.12 L 4.50-6.20 MIL/uL Hemoglobin 8.4 L 14.0-18.0 g/dL Hematocrit 25.9 L 42-54 % Mean Corpuscular Volume 83.0 79-99 fL Mean Corpuscular Hemoglobin 26.9 L 27.0-33.0 pg Mean Corpuscular Hemoglobin Concent 32.4 32.0-36.0 g/dL Red Cell Distribution Width 17.0 H 11.0-15.5 % Platelet Count 139 130-400 K/uL Mean Platelet Volume 9.5 7.5-10.5 fL Immature Granulocyte % (Auto) 6.1 H 0-1 % Neutrophils (%) (Auto) 81.9 H 40.0-77.0 % Lymphocytes (%) (Auto) 5.9 L 21.0-51.0 % Monocytes (%) (Auto) 5.6 3.0-13.0 % Eosinophils (%) (Auto) 0.0 0.0-8.0 % Basophils (%) (Auto) 0.5 0.0-5.0 % Neutrophils # (Auto) 4.9 1.8-7.7 K/uL Lymphocytes # (Auto) 0.4 L 1.0-4.8 K/uL Monocytes # (Auto) 0.3 0.1-1.0 K/uL Eosinophils # (Auto) 0.00 0.00-0.70 K/uL Basophils # (Auto) 0.03 0.00-0.20 K/uL Absolute Immature Granulocyte (auto 0.36 0-1 K/uL Nucleated Red Blood Cells 0.0 0.0-0.19 % Chemistry Labs: Test 09/14/24 16:00 09/14/24 04:49 10/31/24 03:29 Range/Units Whole Blood Glucose 117 H 70-110 MG/DL Sodium Level 132 L 136-145 mmol/L Potassium Level 4.3 3.5-5.1 mmol/L Chloride Level 97 L 101-111 mmol/L Carbon Dioxide Level 28 21-32 mmol/L Blood Urea Nitrogen 52 H 7-18 mg/dL Creatinine 1.4 H 0.5-1.3 mg/dL Glomerular Filtration Rate Calc 55 >90 mL/min Random Glucose 126 H 70-105 mg/dL Total Calcium 8.8 8.5-10.1 mg/dL Procalcitonin 6.25 H 0.05-0.5 ng/mL Magnesium Level 2.10 1.80-2.40 mg/dL DIAGNOSTICS / RADIOLOGY RESULTS: [ Chest x-ray shows bilateral extensive pulmonary infiltrates No effusion, no pneumothorax] PLAN Get a repeat chest x-ray in the morning Get arterial blood gases in the morning NEURO: Minimize central acting medications as possible. Fall Precautions. Well lighted room through the day and minimize interruptions through the night to prevent acute delirium. PULMONARY: Supplemental 02 as needed Titrate Fio2 to keep Spo2 > or = 90% DuoNebs and CPT as needed IS hourly while awake for pulmonary hygiene Out of bed to chair as tolerated HOB 30 degrees of more Send sputum culture CARDIOVASCULAR: Follow hemodynamics. Titrate vasopressor to keep MAP >65 or systolic blood pressure >95mmHg DRIPS: NS LINES: PIV GI & NUTRITION: Continue nutritional support Aspirations precautions Prokinetic agents and laxatives as needed KIDNEYS & ELECTROLYTES: Strict monitoring of intake and output Daily weights Avoid nephrotoxic agents Monitor electrolytes and replace as needed Goal urine output of 30mL/hr or 0.5mL/kg/hr Trend sodium NS for now ENDOCRINE: Maintain blood glucose between 100-180 at all times. Insulin sliding scale for blood glucose management Long acting insulin INFECTIOUS DISEASE: Trend temperature. Kinsey-culture if febrile. Micro: Sputum Blood Antibiotics: Vanco 09/10 Zosyn 09/10-09/11 Cefepime 09/11- Metronidazole 09/11- HEMATOLOGY & COAGULATION: Monitor H&H. Keep Hgb > 7 Transfuse 1 unit of PRBC for Hgb < 7 Transfuse 1 pack of platelets of platelets < 20, 000 Watch for any signs and symptoms of bleeding SKIN: Pressure ulcer prevention per facility protocol Rehab: PT/OT Prophylaxis: GI: Protonix DVT: SCDs, Code Status: Full Resuscitation Disposition: As per primary care team Other: Total patient care time exceeds 35 minutes excluding all procedures. ATTESTATION BY PHYSICIAN The above note and service was scribed by González Arroyo BSc on my behalf and I attest to the accuracy of the note Mariano Gonzales MD I personally scribed for MARIANO GONZALES MD ([email or web address]) on 09/14/24 at 20:27. Electronically submitted by González Kearns ([email or web address]). MARIANO GONZALES MD Sep 14, 2024 20:27
[2024-09-14] MEDS: metoPROLOL tartRATE 50 MG TAB PO SCH (20:46)
--- NOTE | 2024-09-14 21:54 | PN ---
PROGRESS NOTE PROGRESS NOTE DATE OF PROGRESS NOTE: 09/14/24 SUBJECTIVE: Patient has PEG tube malfunction VITAL SIGNS Vital Signs Date Time Temp Pulse Resp B/P (MAP) Pulse Ox O2 Delivery O2 Flow Rate FiO2 09/14/24 20:00 98.1 110 18 143/86 94 Room Air 09/14/24 18:48 2.0 28 PHYSICAL EXAM: Physical Exam Physical Exam Physical Exam Dictation General: Confused, lethargic Head/Face: Normocephalic, atraumatic Eyes: PERRL ENT: oral cavity clear Neck: Trachea midline, supple Cardiovascular: RRR, normal S1/S2, No MRGs, no JVD Respiratory: CTAB, no respiratory distress, No rales or wheezes Abdomen: Soft, non-tender, non-distended, normal bowel sounds Skin: Warm, dry, normal turgor, no rash MS/Extremity: Pulses equal Neuro: Responds to noxious stimuli, lethargic LABORATORY: Laboratory Result(s) Test 09/13/24 22:33 09/14/24 04:49 09/14/24 05:51 09/14/24 11:26 Vancomycin Level Trough 16.1 UG/ML (10.0-20.0) White Blood Count 5.9 K/uL (4.8-10.8) Red Blood Count 3.12 MIL/uL (4.50-6.20) Hemoglobin 8.4 g/dL (14.0-18.0) Hematocrit 25.9 % (42-54) Mean Corpuscular Volume 83.0 fL (79-99) Mean Corpuscular Hemoglobin 26.9 pg (27.0-33.0) Mean Corpuscular Hemoglobin Concent 32.4 g/dL (32.0-36.0) Red Cell Distribution Width 17.0 % (11.0-15.5) Platelet Count 139 K/uL (130-400) Mean Platelet Volume 9.5 fL (7.5-10.5) Immature Granulocyte % (Auto) 6.1 % (0-1) Neutrophils (%) (Auto) 81.9 % (40.0-77.0) Lymphocytes (%) (Auto) 5.9 % (21.0-51.0) Monocytes (%) (Auto) 5.6 % (3.0-13.0) Eosinophils (%) (Auto) 0.0 % (0.0-8.0) Basophils (%) (Auto) 0.5 % (0.0-5.0) Neutrophils # (Auto) 4.9 K/uL (1.8-7.7) Lymphocytes # (Auto) 0.4 K/uL (1.0-4.8) Monocytes # (Auto) 0.3 K/uL (0.1-1.0) Eosinophils # (Auto) 0.00 K/uL (0.00-0.70) Basophils # (Auto) 0.03 K/uL (0.00-0.20) Absolute Immature Granulocyte (auto 0.36 K/uL (0-1) Nucleated Red Blood Cells 0.0 % (0.0-0.19) Sodium Level 132 mmol/L (136-145) Potassium Level 4.3 mmol/L (3.5-5.1) Chloride Level 97 mmol/L (101-111) Carbon Dioxide Level 28 mmol/L (21-32) Blood Urea Nitrogen 52 mg/dL (7-18) Creatinine 1.4 mg/dL (0.5-1.3) Glomerular Filtration Rate Calc 55 mL/min (>90) Random Glucose 126 mg/dL (70-105) Total Calcium 8.8 mg/dL (8.5-10.1) Procalcitonin 6.25 ng/mL (0.05-0.5) Whole Blood Glucose 126 MG/DL (70-110) 122 MG/DL (70-110) Test 09/14/24 16:00 09/14/24 20:25 Whole Blood Glucose 117 MG/DL (70-110) 148 MG/DL (70-110) INPATIENT MEDS: Current Medications Medications Dose Ordered Sig/Elenita Start Time Stop Time Status Last Admin Acetaminophen 650 mg Q6H PRN 09/11/24 03:00 10/11/24 02:59 Acetaminophen 650 mg Q6H PRN 09/11/24 03:00 10/11/24 02:59 Lactulose 20 gm Q6H PRN 09/11/24 03:00 10/11/24 02:59 Docusate Sodium 100 mg BID PRN 09/11/24 03:00 10/11/24 02:59 Temazepam 15 mg HS PRN 09/11/24 03:00 10/11/24 02:59 Ondansetron HCl 4 mg Q6H PRN 09/11/24 03:00 10/11/24 02:59 Insulin Human Regular INSULIN SLIDING SCAL... ACHS 09/11/24 07:30 10/11/24 07:29 09/12/24 12:17 Sodium Chloride 1,000 mg TID 09/11/24 03:30 10/11/24 03:29 09/14/24 20:51 Vancomycin HCl 1 each AD 09/11/24 03:30 09/25/24 03:29 Ipratropium [place] 0.5 mg [id number] 09/11/24 04:00 10/11/24 03:59 09/14/24 18:45 Vancomycin HCl 750 mg Q24H 09/11/24 23:30 09/21/24 23:29 09/14/24 00:22 Metronidazole/ Sodium Chloride 500 mg Q8H 09/11/24 10:00 09/21/24 09:59 09/14/24 11:45 Insulin Glargine 10 units BID@0730,2100 09/11/24 10:30 10/11/24 10:29 09/14/24 20:46 Wound Care/ Dressing Products 1 APPL TID 09/11/24 21:00 10/11/24 20:59 09/14/24 20:52 Methylprednisolone Sodium Succinate 40 mg BID 09/13/24 21:00 10/12/24 11:59 09/14/24 20:46 Meropenem 1 gm/ Sodium Chloride 100 ml @ 33.333 mls/ hr Q8H 09/13/24 13:30 09/23/24 13:29 09/14/24 20:51 Metoprolol Tartrate 50 mg BID 09/14/24 21:00 10/14/24 20:59 09/14/24 20:46 PROBLEM LIST: (1) Hypoxia ICD Code: R09.02 - Hypoxemia (2) Bilateral pleural effusion ICD Code: J90 - Pleural effusion, not elsewhere classified (3) Elevated brain natriuretic peptide (BNP) level ICD Code: R79.89 - Other specified abnormal findings of blood chemistry (4) ADRY (acute kidney injury) ICD Code: N17.9 - Acute kidney failure, unspecified (5) Acute hypoxic respiratory failure ICD Code: J96.01 - Acute respiratory failure with hypoxia (6) Type 2 diabetes mellitus with hyperglycemia ICD Code: E11.65 - Type 2 diabetes mellitus with hyperglycemia PLAN: Acute hypoxic respiratory failure secondary to below Multifocal right lobe pneumonia-- suspect aspiration pneumonitis (+) ESBL Klebsiella pneumoniae Hyponatremia with chronic history of hyponatremia Sepsis present on admission Chronic atrial fibrillation Hyperglycemia in the setting of type 2 DM Ischemic cardiomyopathy ejection fraction of 25% post AICD Dysphagia status post PEG tube placement- non compliance with NPO status Microcytic normochromic anemia Hypertension GERD History of GI bleeding ETOH and cocaine abuse MARKOS JORGENSEN MD Sep 14, 2024 21:54
[2024-09-15] VITALS (11 sets, daily range): BP systolic 129–152; BP diastolic 69–96; PULSE 53–116; RESP 17–20; TEMP 96.4–98.1; O2SAT 98
[2024-09-15 03:45] LABS: ABG BASE EXCESS 3.2 mmol/L (-2.0-3.0); ABG OXYGEN SATURATION 96.3 % (94.0-98.0); ABG PCO2 34 mmHg (35-48); ABG PH 7.497 (7.350-7.450); DEVICE COMMENT RR RN; PO2, ARTERIAL BG 75.8 mmHg (83.0-108.0); VENT MODE, BG 2LNC (ROOM AIR)
[2024-09-15 04:01] LABS: BASOPHILS # (AUTO) 0.05 K/uL (0.00-0.20); BASOPHILS % (AUTO) 0.6 % (0.0-5.0); HEMATOCRIT 28.5 % (42-54); LYMPHOCYTES # (AUTO) 0.6 K/uL (1.0-4.8); LYMPHOCYTES % (AUTO) 6.9 % (21.0-51.0); MEAN CORPUSCULAR HEMOGLOBIN 27.4 pg (27.0-33.0); MEAN CORPUSCULAR HGB CONC 32.6 g/dL (32.0-36.0); MEAN CORPUSCULAR VOLUME 84.1 fL (79-99); MONOCYTES # (AUTO) 0.5 K/uL (0.1-1.0); MONOCYTES % (AUTO) 6.4 % (3.0-13.0); NEUTROPHILS # (AUTO) 6.6 K/uL (1.8-7.7); NEUTROPHILS % (AUTO) 78.9 % (40.0-77.0); NUCLEATED RED BLOOD CELLS 0.2 % (0.0-0.19); PLATELET COUNT (AUTO) 160 K/uL (130-400); RED BLOOD CELL COUNT(AUTO) 3.39 MIL/uL (4.50-6.20); RED CELL DISTRIBUTION WIDTH 17.4 % (11.0-15.5); WHITE BLOOD COUNT (AUTO) 8.3 K/uL (4.8-10.8)
[2024-09-15 04:14] LABS: CREATININE 1.5 mg/dL (0.5-1.3); POTASSIUM 4.7 mmol/L (3.5-5.1)
--- NOTE | 2024-09-15 08:36 | PN ---
[facility] PROGRESS NOTE Date Patient Seen: Sep 15, 2024 Time of Visit: 08:31 Interval History: [Tele with HR 110s ] Physical Examination: GENERAL: [No acute distress.] HEAD: [Normal with no signs of head trauma.] EYES: [PERRLA, EOMI, conjunctiva and sclera normal.] ENT: [Hearing grossly intact, normal oropharynx.] NECK: [Supple without JVD. There is no tenderness, lymphadenopathy, or masses. No thyromegaly. Normal carotid upstrokes without bruits.] LUNGS: [Clear breath sounds bilaterally. No wheezes, or rhonchi.] HEART: [Tachycardic. Normal S1 and S2 without mumurs, gallop or rub.] VASC: [Peripheral pulses +2 bilaterally.] ABD: [Bowel sounds normal, soft, nontender, no masses, no organomegaly. No audible bruits.] : [Not examined] LYMPH: [No lymphadenopathy noted.] EXT: [No clubbing, cyanosis or edema.] SKIN: [No rashes or lesions noted.] NEURO: [Awake, alert, and oriented x3. No focal sensory or strength deficits noted.] Laboratory: [ ] Hematology Labs: Test 09/15/24 03:52 Range/Units White Blood Count 8.3 # 4.8-10.8 K/uL Red Blood Count 3.39 L 4.50-6.20 MIL/uL Hemoglobin 9.3 L 14.0-18.0 g/dL Hematocrit 28.5 L 42-54 % Mean Corpuscular Volume 84.1 79-99 fL Mean Corpuscular Hemoglobin 27.4 27.0-33.0 pg Mean Corpuscular Hemoglobin Concent 32.6 32.0-36.0 g/dL Red Cell Distribution Width 17.4 H 11.0-15.5 % Platelet Count 160 130-400 K/uL Mean Platelet Volume 9.6 7.5-10.5 fL Immature Granulocyte % (Auto) 7.2 H 0-1 % Neutrophils (%) (Auto) 78.9 H 40.0-77.0 % Lymphocytes (%) (Auto) 6.9 L 21.0-51.0 % Monocytes (%) (Auto) 6.4 3.0-13.0 % Eosinophils (%) (Auto) 0.0 0.0-8.0 % Basophils (%) (Auto) 0.6 0.0-5.0 % Neutrophils # (Auto) 6.6 1.8-7.7 K/uL Lymphocytes # (Auto) 0.6 L 1.0-4.8 K/uL Monocytes # (Auto) 0.5 0.1-1.0 K/uL Eosinophils # (Auto) 0.00 0.00-0.70 K/uL Basophils # (Auto) 0.05 0.00-0.20 K/uL Absolute Immature Granulocyte (auto 0.60 0-1 K/uL Nucleated Red Blood Cells 0.2 H 0.0-0.19 % Chemistry Labs: Test 09/15/24 06:12 09/15/24 03:52 09/14/24 04:49 Range/Units Whole Blood Glucose 239 #H 70-110 MG/DL Sodium Level 135 L 136-145 mmol/L Potassium Level 4.7 3.5-5.1 mmol/L Chloride Level 101 101-111 mmol/L Carbon Dioxide Level 30 21-32 mmol/L Blood Urea Nitrogen 64 H 7-18 mg/dL Creatinine 1.5 H 0.5-1.3 mg/dL Glomerular Filtration Rate Calc 51 >90 mL/min Random Glucose 253 #H 70-105 mg/dL Total Calcium 8.5 8.5-10.1 mg/dL Procalcitonin 6.25 H 0.05-0.5 ng/mL Diagnostics / Radiology: [Copy/Paste Echos/Imaging Report here] Impression and Plan: [Acute hypoxic respiratory failure secondary to below Multifocal right lobe pneumonia-- suspect aspiration pneumonitis (+) ESBL Klebsiella pneumoniae Hyponatremia with chronic history of hyponatremia Crack cocaine abuse Sepsis present on admission Uncontrolled type 2 diabetes mellitus HFrEF (EF 45-50 %) post AICD ( done years ago) Paroxysmal atrial fibrillation Dysphagia status post PEG tube placement- non compliance with NPO status Microcytic normochromic anemia Hypertension Atrial tachycardia Plan: [# Paroxysmal atrial fibrillation/Atach The patient initially presents with with shortness of breath. Patient was from the long-term and has a history of aspiration which is driving his tachycardia. Patient apparently drank some water in had worsening work of breathing. Patient was found to have low oxygen saturation and hyponatremia. Sodium now 127. WBC 4.3, hemoglobin 8.2 with a platelet count of 124, Trop 89 . Patient had leaking from PEG tube and GI is planning PEG revision but was deferred due to Atach. Upon further workup the patient underwent ECG that was concerning for atrial flutter/atrial fibrillation, but on further review ECG it appears to be Atrial tachycardia. He denies any chest pain, palpitations, dyspnea or any other anginal equivalent. The patient underwent 2D echocardiogram revealed severely dilated right atrium, EF 45-50%, moderate tricuspid regurgitation, (09/11/2024)] On previous assessment the patient was actively using crack cocaine, on this admission his UDS has been negative and states hes quit drug use 09/15 increased metoprolol tartrate 50 mg every daily p.o. to bid need anticoagulation when cleared by GI Keep on telemetry and monitor/replace lytes as needed. Tachycardia driven by underlying suspected aspiration and poor PO intake If the patient remains rate controlled we will sign off in the next 24 hours Preop Eval: The patient is considered to be moderate to high risk for a low risk noncardiac surgery At this time there is no contraindication to go forward with EGD/PEG revision as the benefits outweigh the risks from the CV standpoint Prior to DC resume home anticoagulation for his h/o Afib once deemed safe by GI following EGD No need for further testing at this time #HFmidrangeEF (EF 45-50 %) post AICD ( done years ago) Ischemic cardiomyopathy During our assessment the patient appears to be euvolemic and compensated on exam He has a prior 2D echocardiogram from 06/11/2024 with EF 25-30% with repeat TTE revealing systolic recovery His latest 2D echocardiogram shows systolic recovery with an EF of 45-50%, severely dilated right atrium, moderate tricuspid regurgitation GDMT: metoprolol 100 mg bid Thank you for this consult cardiology will continue to follow along for rate c ontrol Torrie Cantrell MD ] TORRIE CANTRELL MD Sep 15, 2024 08:36
--- NOTE | 2024-09-15 08:38 | HMCIMG ---
PORTABLE CHEST RADIOGRAPH INDICATION: pneumonia COMPARISON: 09/10/2024 FINDINGS/IMPRESSION: panel monitor leads overlie the field of view. Nominal decrease in extensive bilateral lung pneumonia, specifically on the right, and unchanged trace bilateral pleural effusions..
[2024-09-15] MEDS: metoPROLOL tartRATE 50 MG TAB PO SCH (09:00)
--- NOTE | 2024-09-15 11:31 | PN ---
PROGRESS NOTE PROGRESS NOTE DATE OF PROGRESS NOTE: 09/15/24 VITAL SIGNS Vital Signs Date Time Temp Pulse Resp B/P (MAP) Pulse Ox O2 Delivery O2 Flow Rate FiO2 09/15/24 11:12 79 18 09/15/24 07:00 97.2 129/69 91 Nasal Cannula 2.0 09/14/24 20:00 36 PHYSICAL EXAM: Physical Exam Physical Exam Physical Exam Dictation General: Confused, lethargic Head/Face: Normocephalic, atraumatic Eyes: PERRL ENT: oral cavity clear Neck: Trachea midline, supple Cardiovascular: RRR, normal S1/S2, No MRGs, no JVD Respiratory: CTAB, no respiratory distress, No rales or wheezes Abdomen: Soft, non-tender, non-distended, normal bowel sounds Skin: Warm, dry, normal turgor, no rash MS/Extremity: Pulses equal Neuro: Responds to noxious stimuli, lethargic LABORATORY: Laboratory Result(s) Test 09/14/24 16:00 09/14/24 20:25 09/15/24 03:44 09/15/24 03:52 Whole Blood Glucose 117 MG/DL (70-110) 148 MG/DL (70-110) Blood Gas Specimen Type Arterial Arterial Blood pH 7.497 (7.350-7.450) Arterial Blood Partial Pressure CO2 34 mmHg (35-48) Arterial Blood Partial Pressure O2 75.8 mmHg (83.0-108.0) Arterial Blood HCO3 26.0 mmol/L (21.0-28.0) Arterial Blood Oxygen Saturation 96.3 % (94.0-98.0) Arterial Blood Base Excess 3.2 mmol/L (-2.0-3.0) Blood Gas Temperature 37.0 CELSIUS (35.5-37.0) Blood Gas Flow-by 2.00 L/min (0.00-15.00) Blood Gas Vent Mode 2LNC (ROOM AIR) FiO2 28.0 % Blood Gas Specimen Comment RR RN White Blood Count 8.3 K/uL (4.8-10.8) Red Blood Count 3.39 MIL/uL (4.50-6.20) Hemoglobin 9.3 g/dL (14.0-18.0) Hematocrit 28.5 % (42-54) Mean Corpuscular Volume 84.1 fL (79-99) Mean Corpuscular Hemoglobin 27.4 pg (27.0-33.0) Mean Corpuscular Hemoglobin Concent 32.6 g/dL (32.0-36.0) Red Cell Distribution Width 17.4 % (11.0-15.5) Platelet Count 160 K/uL (130-400) Mean Platelet Volume 9.6 fL (7.5-10.5) Immature Granulocyte % (Auto) 7.2 % (0-1) Neutrophils (%) (Auto) 78.9 % (40.0-77.0) Lymphocytes (%) (Auto) 6.9 % (21.0-51.0) Monocytes (%) (Auto) 6.4 % (3.0-13.0) Eosinophils (%) (Auto) 0.0 % (0.0-8.0) Basophils (%) (Auto) 0.6 % (0.0-5.0) Neutrophils # (Auto) 6.6 K/uL (1.8-7.7) Lymphocytes # (Auto) 0.6 K/uL (1.0-4.8) Monocytes # (Auto) 0.5 K/uL (0.1-1.0) Eosinophils # (Auto) 0.00 K/uL (0.00-0.70) Basophils # (Auto) 0.05 K/uL (0.00-0.20) Absolute Immature Granulocyte (auto 0.60 K/uL (0-1) Nucleated Red Blood Cells 0.2 % (0.0-0.19) Sodium Level 135 mmol/L (136-145) Potassium Level 4.7 mmol/L (3.5-5.1) Chloride Level 101 mmol/L (101-111) Carbon Dioxide Level 30 mmol/L (21-32) Blood Urea Nitrogen 64 mg/dL (7-18) Creatinine 1.5 mg/dL (0.5-1.3) Glomerular Filtration Rate Calc 51 mL/min (>90) Random Glucose 253 mg/dL (70-105) Total Calcium 8.5 mg/dL (8.5-10.1) Test 09/15/24 06:12 09/15/24 11:05 Whole Blood Glucose 239 MG/DL (70-110) 136 MG/DL (70-110) Bedside Glucose Comment Notified Nurse INPATIENT MEDS: Current Medications Medications Dose Ordered Sig/Elenita Start Time Stop Time Status Last Admin Acetaminophen 650 mg Q6H PRN 09/11/24 03:00 10/11/24 02:59 Acetaminophen 650 mg Q6H PRN 09/11/24 03:00 10/11/24 02:59 Lactulose 20 gm Q6H PRN 09/11/24 03:00 10/11/24 02:59 Docusate Sodium 100 mg BID PRN 09/11/24 03:00 10/11/24 02:59 Temazepam 15 mg HS PRN 09/11/24 03:00 10/11/24 02:59 Ondansetron HCl 4 mg Q6H PRN 09/11/24 03:00 10/11/24 02:59 Insulin Human Regular INSULIN SLIDING SCAL... ACHS 09/11/24 07:30 10/11/24 07:29 09/15/24 06:43 Sodium Chloride 1,000 mg TID 09/11/24 03:30 10/11/24 03:29 09/15/24 09:00 Vancomycin HCl 1 each AD 09/11/24 03:30 09/25/24 03:29 Ipratropium [place] 0.5 mg [id number] 09/11/24 04:00 10/11/24 03:59 09/15/24 11:11 Vancomycin HCl 750 mg Q24H 09/11/24 23:30 09/21/24 23:29 09/15/24 01:12 Metronidazole/ Sodium Chloride 500 mg Q8H 09/11/24 10:00 09/21/24 09:59 09/15/24 09:03 Insulin Glargine 10 units BID@0730,2100 09/11/24 10:30 10/11/24 10:29 09/15/24 06:44 Wound Care/ Dressing Products 1 APPL TID 09/11/24 21:00 10/11/24 20:59 09/15/24 09:03 Methylprednisolone Sodium Succinate 40 mg BID 09/13/24 21:00 10/12/24 11:59 09/15/24 09:00 Meropenem 1 gm/ Sodium Chloride 100 ml @ 33.333 mls/ hr Q8H 09/13/24 13:30 09/23/24 13:29 09/15/24 05:19 Metoprolol Tartrate 100 mg BID 09/15/24 09:00 10/15/24 08:59 09/15/24 09:00 PROBLEM LIST: (1) Hypoxia ICD Code: R09.02 - Hypoxemia (2) Bilateral pleural effusion ICD Code: J90 - Pleural effusion, not elsewhere classified (3) Elevated brain natriuretic peptide (BNP) level ICD Code: R79.89 - Other specified abnormal findings of blood chemistry (4) ADRY (acute kidney injury) ICD Code: N17.9 - Acute kidney failure, unspecified (5) Acute hypoxic respiratory failure ICD Code: J96.01 - Acute respiratory failure with hypoxia (6) Type 2 diabetes mellitus with hyperglycemia ICD Code: E11.65 - Type 2 diabetes mellitus with hyperglycemia PLAN: Acute hypoxic respiratory failure secondary to below Multifocal right lobe pneumonia-- suspect aspiration pneumonitis (+) ESBL Klebsiella pneumoniae Hyponatremia with chronic history of hyponatremia Sepsis present on admission Chronic atrial fibrillation Hyperglycemia in the setting of type 2 DM Ischemic cardiomyopathy ejection fraction of 25% post AICD Dysphagia status post PEG tube placement- non compliance with NPO status Microcytic normochromic anemia Hypertension GERD History of GI bleeding ETOH and cocaine abuse MARKOS JORGENSEN MD Sep 15, 2024 11:31
--- NOTE | 2024-09-15 17:48 | PN ---
[facility] PROGRESS NOTE Date Patient Seen: Sep 15, 2024 Time of Visit: 17:45 Supervising Physician: MARIANO GONZALES MD Primary Care Physician: Sofy Fields Outpatient Specialists: [facility] Inpatient Consults: Tanner Rodriguez PROBLEM LIST: Acute hypoxic respiratory failure secondary to below Multifocal right lobe pneumonia-- suspect aspiration pneumonitis (+) ESBL Klebsiella pneumoniae Hyponatremia with chronic history of hyponatremia Sepsis present on admission Chronic atrial fibrillation Hyperglycemia in the setting of type 2 DM Ischemic cardiomyopathy ejection fraction of 25% post AICD Dysphagia status post PEG tube placement- non compliance with NPO status Microcytic normochromic anemia Hypertension GERD History of GI bleeding ETOH and cocaine abuse INTERVAL HISTORY: Patient is seen and evaluated Afebrile, no distress, well hydrated Remains on O2 Still having desaturation with exertion Dry cough, no congestion, no hemoptysis Tolerating PEG tube feedings, no residuals, no nausea, no vomiting Maintains good urinary output REVIEW OF SYSTEMS: General: No Fever, No Chills, No Night Sweats, No Fatigue, No Malaise, No Appetite HEENT: No Head Aches, No Visual Changes, No Eye Pain, No Ear Pain, No Dysphasia, No Sinus Congestion, No Post Nasal Drip, No Sore Throat Pulmonary: Described in interval history Cardiovascular: No: Chest Pain, Palpitations, Orthopnea, Paroxysmal Noc. Dyspnea, Edema, Lt Headedness Gastrointestinal: No: Nausea, Vomiting, Abdominal Pain, Diarrhea, Constipation, Melena, Hematochezia Genitourinary: No Dysuria, No Frequency, No Incontinence, No Hematuria, No Retention Musculoskeletal: No: other, neck pain, shoulder pain, arm pain, back pain, hand pain, leg pain, foot pain Skin: No Urticaria, No Rash Neurological: No: Weakness, Numbness, Incoordination, Change in speech, Confusion, Seizures PHYSICAL EXAM: GENERAL: alert, weak, awake oriented x 3 HEENT: EOMI, Sclera non icteric, moist mucosa NECK: Supple, no JVD, trachea midline LUNGS: Crackles right lobes. NO wheezing. No tachypnea HEART: Regular rate and rhythm. Normal S1 and S2, without murmurs ABD: Abdomen soft, nontender. Bowel sounds present. PEG tube in place EXT: No clubbing cyanosis or edema NEURO: Alert and oriented to person, follows commands Vital Signs (last 8hr) Date Time Temp Pulse Resp B/P (MAP) Pulse Ox O2 Delivery O2 Flow Rate FiO2 09/15/24 16:00 96.4 88 20 142/96 100 Nasal Cannula 2.0 09/15/24 11:12 79 18 09/15/24 11:00 97.3 92 20 143/77 98 Nasal Cannula 2.0 LABS: Hematology Labs: Test 09/15/24 03:52 Range/Units White Blood Count 8.3 # 4.8-10.8 K/uL Red Blood Count 3.39 L 4.50-6.20 MIL/uL Hemoglobin 9.3 L 14.0-18.0 g/dL Hematocrit 28.5 L 42-54 % Mean Corpuscular Volume 84.1 79-99 fL Mean Corpuscular Hemoglobin 27.4 27.0-33.0 pg Mean Corpuscular Hemoglobin Concent 32.6 32.0-36.0 g/dL Red Cell Distribution Width 17.4 H 11.0-15.5 % Platelet Count 160 130-400 K/uL Mean Platelet Volume 9.6 7.5-10.5 fL Immature Granulocyte % (Auto) 7.2 H 0-1 % Neutrophils (%) (Auto) 78.9 H 40.0-77.0 % Lymphocytes (%) (Auto) 6.9 L 21.0-51.0 % Monocytes (%) (Auto) 6.4 3.0-13.0 % Eosinophils (%) (Auto) 0.0 0.0-8.0 % Basophils (%) (Auto) 0.6 0.0-5.0 % Neutrophils # (Auto) 6.6 1.8-7.7 K/uL Lymphocytes # (Auto) 0.6 L 1.0-4.8 K/uL Monocytes # (Auto) 0.5 0.1-1.0 K/uL Eosinophils # (Auto) 0.00 0.00-0.70 K/uL Basophils # (Auto) 0.05 0.00-0.20 K/uL Absolute Immature Granulocyte (auto 0.60 0-1 K/uL Nucleated Red Blood Cells 0.2 H 0.0-0.19 % Chemistry Labs: Test 09/15/24 11:05 09/15/24 03:52 09/14/24 04:49 Range/Units Whole Blood Glucose 136 H 70-110 MG/DL Bedside Glucose Comment Notified Nurse Sodium Level 135 L 136-145 mmol/L Potassium Level 4.7 3.5-5.1 mmol/L Chloride Level 101 101-111 mmol/L Carbon Dioxide Level 30 21-32 mmol/L Blood Urea Nitrogen 64 H 7-18 mg/dL Creatinine 1.5 H 0.5-1.3 mg/dL Glomerular Filtration Rate Calc 51 >90 mL/min Random Glucose 253 #H 70-105 mg/dL Total Calcium 8.5 8.5-10.1 mg/dL Procalcitonin 6.25 H 0.05-0.5 ng/mL DIAGNOSTICS / RADIOLOGY RESULTS: [ None reviewed today ] PLAN As per nurse, plan is for the patient to be [facility] but patient is not hemodynamically stable for discharge at this point Get CBC and CMP in the morning continue PEG tube feedings aspiration precautions NEURO: Minimize central acting medications as possible. Fall Precautions. Well lighted room through the day and minimize interruptions through the night to prevent acute delirium. PULMONARY: Supplemental 02 as needed Titrate Fio2 to keep Spo2 > or = 90% DuoNebs and CPT as needed IS hourly while awake for pulmonary hygiene Out of bed to chair as tolerated HOB 30 degrees of more Send sputum culture CARDIOVASCULAR: Follow hemodynamics. Titrate vasopressor to keep MAP >65 or systolic blood pressure >95mmHg DRIPS: NS LINES: PIV GI & NUTRITION: Continue nutritional support Aspirations precautions Prokinetic agents and laxatives as needed KIDNEYS & ELECTROLYTES: Strict monitoring of intake and output Daily weights Avoid nephrotoxic agents Monitor electrolytes and replace as needed Goal urine output of 30mL/hr or 0.5mL/kg/hr Trend sodium NS for now ENDOCRINE: Maintain blood glucose between 100-180 at all times. Insulin sliding scale for blood glucose management Long acting insulin INFECTIOUS DISEASE: Trend temperature. Kinsey-culture if febrile. Micro: Sputum Blood Antibiotics: Vanco 09/10 Zosyn 09/10-09/11 Cefepime 09/11- Metronidazole 09/11- HEMATOLOGY & COAGULATION: Monitor H&H. Keep Hgb > 7 Transfuse 1 unit of PRBC for Hgb < 7 Transfuse 1 pack of platelets of platelets < 20, 000 Watch for any signs and symptoms of bleeding SKIN: Pressure ulcer prevention per facility protocol Rehab: PT/OT Prophylaxis: GI: Protonix DVT: SCDs, Code Status: Full Resuscitation Disposition: As per primary care team, plan for [facility] Other: Total patient care time exceeds 35 minutes excluding all procedures. ATTESTATION BY PHYSICIAN The above note and service was scribed by González Arroyo BSc on my behalf and I attest to the accuracy of the note Mariano Gonzales MD I personally scribed for MARIANO GONZALES MD ([email or web address]) on 09/15/24 at 17:47. Electronically submitted by González Kearns ([email or web address]). MARIANO GONZALES MD Sep 15, 2024 17:47
[2024-09-15] MEDS: APIXaban 2.5 MG TABLET PO SCH (20:35)
[2024-09-16] VITALS (13 sets, daily range): BP systolic 119–153; BP diastolic 72–87; PULSE 56–103; RESP 17–24; TEMP 97.6–98.7; O2SAT 83–99
--- NOTE | 2024-09-16 06:56 | PN ---
PROGRESS NOTE PROGRESS NOTE DATE OF PROGRESS NOTE: 09/16/24 SUBJECTIVE: has minimal cough VITAL SIGNS Vital Signs Date Time Temp Pulse Resp B/P (MAP) Pulse Ox O2 Delivery O2 Flow Rate FiO2 09/16/24 06:18 56 24 09/16/24 06:15 N/A Room Air 21 09/16/24 04:22 98.1 119/73 93 2.0 PHYSICAL EXAM: Physical Exam Physical Exam Physical Exam Dictation General: Confused, lethargic Head/Face: Normocephalic, atraumatic Eyes: PERRL ENT: oral cavity clear Neck: Trachea midline, supple Cardiovascular: RRR, normal S1/S2, No MRGs, no JVD Respiratory: CTAB, no respiratory distress, No rales or wheezes Abdomen: Soft, non-tender, non-distended, normal bowel sounds Skin: Warm, dry, normal turgor, no rash MS/Extremity: Pulses equal Neuro: Responds to noxious stimuli, lethargic LABORATORY: Laboratory Result(s) Test 09/15/24 11:05 09/15/24 20:30 09/15/24 22:15 09/16/24 05:58 Whole Blood Glucose 136 MG/DL (70-110) 126 MG/DL (70-110) 273 MG/DL (70-110) Bedside Glucose Comment Notified Nurse Vancomycin Level Trough 27.4 UG/ML (10.0-20.0) INPATIENT MEDS: Current Medications Medications Dose Ordered Sig/Elenita Start Time Stop Time Status Last Admin Acetaminophen 650 mg Q6H PRN 09/11/24 03:00 10/11/24 02:59 Acetaminophen 650 mg Q6H PRN 09/11/24 03:00 10/11/24 02:59 Lactulose 20 gm Q6H PRN 09/11/24 03:00 10/11/24 02:59 Docusate Sodium 100 mg BID PRN 09/11/24 03:00 10/11/24 02:59 Temazepam 15 mg HS PRN 09/11/24 03:00 10/11/24 02:59 Ondansetron HCl 4 mg Q6H PRN 09/11/24 03:00 10/11/24 02:59 Insulin Human Regular INSULIN SLIDING SCAL... ACHS 09/11/24 07:30 10/11/24 07:29 09/16/24 06:34 Sodium Chloride 1,000 mg TID 09/11/24 03:30 10/11/24 03:29 09/15/24 20:34 Vancomycin HCl 1 each AD 09/11/24 03:30 09/25/24 03:29 Ipratropium [place] 0.5 mg [id number] 09/11/24 04:00 10/11/24 03:59 09/16/24 06:15 Vancomycin HCl 750 mg Q24H 09/11/24 23:30 09/21/24 23:29 09/15/24 22:30 Metronidazole/ Sodium Chloride 500 mg Q8H 09/11/24 10:00 09/21/24 09:59 09/16/24 02:52 Insulin Glargine 10 units BID@0730,2100 09/11/24 10:30 10/11/24 10:29 09/16/24 06:35 Wound Care/ Dressing Products 1 APPL TID 09/11/24 21:00 10/11/24 20:59 09/15/24 21:19 Methylprednisolone Sodium Succinate 40 mg BID 09/13/24 21:00 10/12/24 11:59 09/15/24 20:35 Meropenem 1 gm/ Sodium Chloride 100 ml @ 33.333 mls/ hr Q8H 09/13/24 13:30 09/23/24 13:29 09/16/24 05:20 Metoprolol Tartrate 100 mg BID 09/15/24 09:00 10/15/24 08:59 09/15/24 20:34 Apixaban 2.5 mg BID 09/15/24 21:00 10/15/24 20:59 09/15/24 20:35 PROBLEM LIST: (1) Hypoxia ICD Code: R09.02 - Hypoxemia (2) Bilateral pleural effusion ICD Code: J90 - Pleural effusion, not elsewhere classified (3) Elevated brain natriuretic peptide (BNP) level ICD Code: R79.89 - Other specified abnormal findings of blood chemistry (4) ADRY (acute kidney injury) ICD Code: N17.9 - Acute kidney failure, unspecified (5) Acute hypoxic respiratory failure ICD Code: J96.01 - Acute respiratory failure with hypoxia (6) Type 2 diabetes mellitus with hyperglycemia ICD Code: E11.65 - Type 2 diabetes mellitus with hyperglycemia PLAN: Acute hypoxic respiratory failure secondary to below Multifocal right lobe pneumonia-- suspect aspiration pneumonitis (+) ESBL Klebsiella pneumoniae Hyponatremia with chronic history of hyponatremia Sepsis present on admission Chronic atrial fibrillation Hyperglycemia in the setting of type 2 DM Ischemic cardiomyopathy ejection fraction of 25% post AICD Dysphagia status post PEG tube placement- non compliance with NPO status Microcytic normochromic anemia Hypertension GERD History of GI bleeding ETOH and cocaine abuse MARKOS JORGENSEN MD Sep 16, 2024 06:56
--- NOTE | 2024-09-16 09:16 | PN ---
[facility] CARDIOLOGY PROGRESS NOTE Date Patient Seen: Sep 16, 2024 Time of Visit: 09:13 Interval History: [Tele with [id number] last night. Currently HR 90-100 bpm.] Physical Examination: GENERAL: [No acute distress.] HEAD: [Normal with no signs of head trauma.] EYES: [PERRLA, EOMI, conjunctiva and sclera normal.] ENT: [Hearing grossly intact, normal oropharynx.] NECK: [Supple without JVD. There is no tenderness, lymphadenopathy, or masses. No thyromegaly. Normal carotid upstrokes without bruits.] LUNGS: [Clear breath sounds bilaterally. No wheezes, or rhonchi.] HEART: [Tachycardic. Normal S1 and S2 without mumurs, gallop or rub.] VASC: [Peripheral pulses +2 bilaterally.] ABD: [Bowel sounds normal, soft, nontender, no masses, no organomegaly. No audible bruits.] : [Not examined] LYMPH: [No lymphadenopathy noted.] EXT: [No clubbing, cyanosis or edema.] SKIN: [No rashes or lesions noted.] NEURO: [Awake, alert, and oriented x3. No focal sensory or strength deficits noted.] Laboratory: [ ] Hematology Labs: Test 09/15/24 03:52 Range/Units White Blood Count 8.3 # 4.8-10.8 K/uL Red Blood Count 3.39 L 4.50-6.20 MIL/uL Hemoglobin 9.3 L 14.0-18.0 g/dL Hematocrit 28.5 L 42-54 % Mean Corpuscular Volume 84.1 79-99 fL Mean Corpuscular Hemoglobin 27.4 27.0-33.0 pg Mean Corpuscular Hemoglobin Concent 32.6 32.0-36.0 g/dL Red Cell Distribution Width 17.4 H 11.0-15.5 % Platelet Count 160 130-400 K/uL Mean Platelet Volume 9.6 7.5-10.5 fL Immature Granulocyte % (Auto) 7.2 H 0-1 % Neutrophils (%) (Auto) 78.9 H 40.0-77.0 % Lymphocytes (%) (Auto) 6.9 L 21.0-51.0 % Monocytes (%) (Auto) 6.4 3.0-13.0 % Eosinophils (%) (Auto) 0.0 0.0-8.0 % Basophils (%) (Auto) 0.6 0.0-5.0 % Neutrophils # (Auto) 6.6 1.8-7.7 K/uL Lymphocytes # (Auto) 0.6 L 1.0-4.8 K/uL Monocytes # (Auto) 0.5 0.1-1.0 K/uL Eosinophils # (Auto) 0.00 0.00-0.70 K/uL Basophils # (Auto) 0.05 0.00-0.20 K/uL Absolute Immature Granulocyte (auto 0.60 0-1 K/uL Nucleated Red Blood Cells 0.2 H 0.0-0.19 % Chemistry Labs: Test 09/16/24 05:58 09/15/24 11:05 09/15/24 03:52 Range/Units Whole Blood Glucose 273 #H 70-110 MG/DL Bedside Glucose Comment Notified Nurse Sodium Level 135 L 136-145 mmol/L Potassium Level 4.7 3.5-5.1 mmol/L Chloride Level 101 101-111 mmol/L Carbon Dioxide Level 30 21-32 mmol/L Blood Urea Nitrogen 64 H 7-18 mg/dL Creatinine 1.5 H 0.5-1.3 mg/dL Glomerular Filtration Rate Calc 51 >90 mL/min Random Glucose 253 #H 70-105 mg/dL Total Calcium 8.5 8.5-10.1 mg/dL Diagnostics / Radiology: [Copy/Paste Echos/Imaging Report here] Impression and Plan: [Acute hypoxic respiratory failure secondary to below Multifocal right lobe pneumonia-- suspect aspiration pneumonitis (+) ESBL Klebsiella pneumoniae Hyponatremia with chronic history of hyponatremia Crack cocaine abuse Sepsis present on admission Uncontrolled type 2 diabetes mellitus HFrEF (EF 45-50 %) post AICD ( done years ago) Paroxysmal atrial fibrillation Dysphagia status post PEG tube placement- non compliance with NPO status Microcytic normochromic anemia Hypertension Atrial tachycardia Plan: [# Paroxysmal atrial fibrillation/Atach The patient initially presents with with shortness of breath. Patient was from the long-term and has a history of aspiration which is driving his tachycardia. Patient apparently drank some water in had worsening work of breathing. Patient was found to have low oxygen saturation and hyponatremia. Sodium now 127. WBC 4.3, hemoglobin 8.2 with a platelet count of 124, Trop 89 . Patient had leaking from PEG tube and GI is planning PEG revision but was def erred due to Atach. Upon further workup the patient underwent ECG that was concerning for atrial flutter/atrial fibrillation, but on further review ECG it appears to be Atrial tachycardia. He denies any chest pain, palpitations, dyspnea or any other anginal equivalent. The patient underwent 2D echocardiogram revealed severely dilated right atrium, EF 45-50%, moderate tricuspid regurgitation, (09/11/2024)] On previous assessment the patient was actively using crack cocaine, on this admission his UDS has been negative and states hes quit drug use 09/15 increased metoprolol tartrate 50 mg every daily p.o. to bid 09/16 increased metoprolol tartrate 100 mg bid to 100 mg q8h started eliquis 2.5 mg bid; GI team confirmed ok to start Keep on telemetry and monitor/replace lytes as needed. Tachycardia driven by underlying suspected aspiration and poor PO intake If the patient remains rate controlled we will sign off in the next 24 hours Preop Eval: The patient is considered to be moderate to high risk for a low risk noncardiac surgery At this time there is no contraindication to go forward with EGD/PEG revision as the benefits outweigh the risks from the CV standpoint Prior to DC resume home anticoagulation for his h/o Afib once deemed safe by GI following EGD No need for further testing at this time #HFmidrangeEF (EF 45-50 %) post AICD ( done years ago) Ischemic cardiomyopathy During our assessment the patient appears to be euvolemic and compensated on exam He has a prior 2D echocardiogram from 06/11/2024 with EF 25-30% with repeat TTE revealing systolic recovery His latest 2D echocardiogram shows systolic recovery with an EF of 45-50%, severely dilated right atrium, moderate tricuspid regurgitation GDMT: metoprolol 100 mg q8h Thank you for this consult cardiology will continue to follow along for kevin Cantrell MD ] AVA CANTRELL MD Sep 16, 2024 09:16
[2024-09-16] MEDS: metoPROLOL tartRATE 50 MG TAB PO SCH (12:24)
--- NOTE | 2024-09-16 13:36 | PN ---
[facility] PROGRESS NOTE Date Patient Seen: Sep 16, 2024 Time of Visit: 13:32 Supervising Physician: MARIANO GONZALES MD Primary Care Physician: Sofy Fields Outpatient Specialists: [facility] Inpatient Consults: Tanner Rodriguez PROBLEM LIST: Acute hypoxic respiratory failure secondary to below Multifocal right lobe pneumonia-- suspect aspiration pneumonitis (+) ESBL Klebsiella pneumoniae Hyponatremia with chronic history of hyponatremia Sepsis present on admission Chronic atrial fibrillation Hyperglycemia in the setting of type 2 DM Ischemic cardiomyopathy ejection fraction of 25% post AICD Dysphagia status post PEG tube placement- non compliance with NPO status Microcytic normochromic anemia Hypertension GERD History of GI bleeding ETOH and cocaine abuse INTERVAL HISTORY: Patient seen and evaluated Patient is awake, well hydrated, weak Overnight, had episodes of atrial fibrillation with SVT Denies chest pain Denies palpitations Remains on O2 denies orthopnea no nausea, no vomiting, no abdominal pain Occasional cough, no congestion REVIEW OF SYSTEMS: General: No Fever, No Chills, No Night Sweats, No Fatigue, No Malaise, No Appetite HEENT: No Head Aches, No Visual Changes, No Eye Pain, No Ear Pain, No Dysphasia, No Sinus Congestion, No Post Nasal Drip, No Sore Throat Pulmonary: Described in interval history Cardiovascular: No: Chest Pain, Palpitations, Orthopnea, Paroxysmal Noc. Dyspnea, Edema, Lt Headedness Gastrointestinal: No: Nausea, Vomiting, Abdominal Pain, Diarrhea, Constipation, Melena, Hematochezia Genitourinary: No Dysuria, No Frequency, No Incontinence, No Hematuria, No Retention Musculoskeletal: No: other, neck pain, shoulder pain, arm pain, back pain, hand pain, leg pain, foot pain Skin: No Urticaria, No Rash Neurological: No: Weakness, Numbness, Incoordination, Change in speech, Confusion, Seizures PHYSICAL EXAM: GENERAL: alert, weak, awake oriented x 3 HEENT: EOMI, Sclera non icteric, moist mucosa NECK: Supple, no JVD, trachea midline LUNGS: Crackles right lobes. NO wheezing. No tachypnea HEART: Regular rate and rhythm. Normal S1 and S2, without murmurs ABD: Abdomen soft, nontender. Bowel sounds present. PEG tube in place EXT: No clubbing cyanosis or edema NEURO: Alert and oriented to person, follows commands Vital Signs (last 8hr) Date Time Temp Pulse Resp B/P (MAP) Pulse Ox O2 Delivery O2 Flow Rate FiO2 09/16/24 11:40 98.4 100 18 145/72 98 Nasal Cannula 2.0 09/16/24 11:32 94 21 09/16/24 11:32 94 21 N/Cannula Low lpm 2.0 09/16/24 07:42 98.4 103 18 153/82 98 Nasal Cannula 2.0 09/16/24 07:00 98 Nasal Cannula* 4 36 09/16/24 06:18 56 24 09/16/24 06:15 56 24 N/A Room Air 21 LABS: Hematology Labs: Test 09/15/24 03:52 Range/Units White Blood Count 8.3 # 4.8-10.8 K/uL Red Blood Count 3.39 L 4.50-6.20 MIL/uL Hemoglobin 9.3 L 14.0-18.0 g/dL Hematocrit 28.5 L 42-54 % Mean Corpuscular Volume 84.1 79-99 fL Mean Corpuscular Hemoglobin 27.4 27.0-33.0 pg Mean Corpuscular Hemoglobin Concent 32.6 32.0-36.0 g/dL Red Cell Distribution Width 17.4 H 11.0-15.5 % Platelet Count 160 130-400 K/uL Mean Platelet Volume 9.6 7.5-10.5 fL Immature Granulocyte % (Auto) 7.2 H 0-1 % Neutrophils (%) (Auto) 78.9 H 40.0-77.0 % Lymphocytes (%) (Auto) 6.9 L 21.0-51.0 % Monocytes (%) (Auto) 6.4 3.0-13.0 % Eosinophils (%) (Auto) 0.0 0.0-8.0 % Basophils (%) (Auto) 0.6 0.0-5.0 % Neutrophils # (Auto) 6.6 1.8-7.7 K/uL Lymphocytes # (Auto) 0.6 L 1.0-4.8 K/uL Monocytes # (Auto) 0.5 0.1-1.0 K/uL Eosinophils # (Auto) 0.00 0.00-0.70 K/uL Basophils # (Auto) 0.05 0.00-0.20 K/uL Absolute Immature Granulocyte (auto 0.60 0-1 K/uL Nucleated Red Blood Cells 0.2 H 0.0-0.19 % Chemistry Labs: Test 09/16/24 11:07 09/15/24 11:05 09/15/24 03:52 Range/Units Whole Blood Glucose 162 H 70-110 MG/DL Bedside Glucose Comment Notified Nurse Sodium Level 135 L 136-145 mmol/L Potassium Level 4.7 3.5-5.1 mmol/L Chloride Level 101 101-111 mmol/L Carbon Dioxide Level 30 21-32 mmol/L Blood Urea Nitrogen 64 H 7-18 mg/dL Creatinine 1.5 H 0.5-1.3 mg/dL Glomerular Filtration Rate Calc 51 >90 mL/min Random Glucose 253 #H 70-105 mg/dL Total Calcium 8.5 8.5-10.1 mg/dL DIAGNOSTICS / RADIOLOGY RESULTS: [None today ] PLAN rate controlled for now continue telemetry monitoring continue beta ema calcium channel drip if needed not hemodynamically stable for discharge replace electrolytes as per protocol NEURO: Minimize central acting medications as possible. Fall Precautions. Well lighted room through the day and minimize interruptions through the night to prevent acute delirium. PULMONARY: Supplemental 02 as needed Titrate Fio2 to keep Spo2 > or = 90% DuoNebs and CPT as needed IS hourly while awake for pulmonary hygiene Out of bed to chair as tolerated HOB 30 degrees of more Send sputum culture CARDIOVASCULAR: Follow hemodynamics. Titrate vasopressor to keep MAP >65 or systolic blood pressure >95mmHg DRIPS: NS LINES: PIV GI & NUTRITION: Continue nutritional support Aspirations precautions Prokinetic agents and laxatives as needed KIDNEYS & ELECTROLYTES: Strict monitoring of intake and output Daily weights Avoid nephrotoxic agents Monitor electrolytes and replace as needed Goal urine output of 30mL/hr or 0.5mL/kg/hr Trend sodium NS for now ENDOCRINE: Maintain blood glucose between 100-180 at all times. Insulin sliding scale for blood glucose management Long acting insulin INFECTIOUS DISEASE: Trend temperature. Kinsey-culture if febrile. Micro: Sputum Blood Antibiotics: Vanco 09/10 Zosyn 09/10-09/11 Cefepime 09/11- Metronidazole 09/11- HEMATOLOGY & COAGULATION: Monitor H&H. Keep Hgb > 7 Transfuse 1 unit of PRBC for Hgb < 7 Transfuse 1 pack of platelets of platelets < 20, 000 Watch for any signs and symptoms of bleeding SKIN: Pressure ulcer prevention per facility protocol Rehab: PT/OT Prophylaxis: GI: Protonix DVT: SCDs, Code Status: Full Resuscitation Disposition: As per primary care team, plan for [facility] Other: Total patient care time exceeds 35 minutes excluding all procedures. ATTESTATION BY PHYSICIAN The above note and service was scribed by Gonzálze Arroyo BSc on my behalf and I attest to the accuracy of the note Mariano Gonzales MD I personally scribed for MARIANO GONZALES MD ([email or web address]) on 09/16/24 at 13:36. Electronically submitted by González Kearns ([email or web address]). MARIANO GONZALES MD Sep 16, 2024 13:36
[2024-09-17] VITALS (18 sets, daily range): BP systolic 116–153; BP diastolic 69–84; PULSE 78–96; RESP 16–20; TEMP 97.3–99.2; O2SAT 91–100
[2024-09-17 03:52] LABS: BASOPHILS # (AUTO) 0.02 K/uL (0.00-0.20); BASOPHILS % (AUTO) 0.2 % (0.0-5.0); HEMATOCRIT 29.6 % (42-54); IMMATURE GRANULOCYTE ABSOLUTE 0.63 K/uL (0-1); LYMPHOCYTES # (AUTO) 0.8 K/uL (1.0-4.8); LYMPHOCYTES % (AUTO) 6.6 % (21.0-51.0); MEAN CORPUSCULAR HEMOGLOBIN 27.9 pg (27.0-33.0); MEAN CORPUSCULAR HGB CONC 32.1 g/dL (32.0-36.0); MEAN CORPUSCULAR VOLUME 87.1 fL (79-99); MONOCYTES # (AUTO) 0.4 K/uL (0.1-1.0); MONOCYTES % (AUTO) 3.4 % (3.0-13.0); NEUTROPHILS # (AUTO) 9.6 K/uL (1.8-7.7); NEUTROPHILS % (AUTO) 84.3 % (40.0-77.0); PLATELET COUNT (AUTO) 144 K/uL (130-400); RED CELL DISTRIBUTION WIDTH 18.1 % (11.0-15.5); WHITE BLOOD COUNT (AUTO) 11.4 K/uL (4.8-10.8)
[2024-09-17 04:17] LABS: ALBUMIN 1.9 g/dL (3.5-5.0); BILIRUBIN,TOTAL 0.6 mg/dL (0.2-1.0); CREATININE 1.3 mg/dL (0.5-1.3); POTASSIUM 4.6 mmol/L (3.5-5.1); TOTAL PROTEIN, SERUM 5.8 g/dL (6.0-8.3)
[2024-09-17] MEDS: MEROPENEM 1 GM in 0.9%NACL 100ML 100 ML IVPB SCH (07:50)
--- NOTE | 2024-09-17 07:52 | PN ---
PROGRESS NOTE PROGRESS NOTE DATE OF PROGRESS NOTE: 09/17/24 SUBJECTIVE: Patient has no new complaints VITAL SIGNS Vital Signs Date Time Temp Pulse Resp B/P (MAP) Pulse Ox O2 Delivery O2 Flow Rate FiO2 09/17/24 06:21 87 17 09/17/24 06:20 N/Cannula Low lpm 2.0 28 09/17/24 03:43 97.9 153/79 99 PHYSICAL EXAM: Physical Exam Physical Exam Physical Exam Dictation General: Confused, lethargic Head/Face: Normocephalic, atraumatic Eyes: PERRL ENT: oral cavity clear Neck: Trachea midline, supple Cardiovascular: RRR, normal S1/S2, No MRGs, no JVD Respiratory: CTAB, no respiratory distress, No rales or wheezes Abdomen: Soft, non-tender, non-distended, normal bowel sounds Skin: Warm, dry, normal turgor, no rash MS/Extremity: Pulses equal Neuro: Responds to noxious stimuli, lethargic LABORATORY: Laboratory Result(s) Test 09/16/24 11:07 09/16/24 15:29 09/16/24 20:45 09/16/24 21:35 Whole Blood Glucose 162 MG/DL (70-110) 186 MG/DL (70-110) 246 MG/DL (70-110) Vancomycin Level Trough 19.9 UG/ML (10.0-20.0) Test 09/17/24 03:36 09/17/24 05:51 White Blood Count 11.4 K/uL (4.8-10.8) Red Blood Count 3.40 MIL/uL (4.50-6.20) Hemoglobin 9.5 g/dL (14.0-18.0) Hematocrit 29.6 % (42-54) Mean Corpuscular Volume 87.1 fL (79-99) Mean Corpuscular Hemoglobin 27.9 pg (27.0-33.0) Mean Corpuscular Hemoglobin Concent 32.1 g/dL (32.0-36.0) Red Cell Distribution Width 18.1 % (11.0-15.5) Platelet Count 144 K/uL (130-400) Mean Platelet Volume 9.2 fL (7.5-10.5) Immature Granulocyte % (Auto) 5.5 % (0-1) Neutrophils (%) (Auto) 84.3 % (40.0-77.0) Lymphocytes (%) (Auto) 6.6 % (21.0-51.0) Monocytes (%) (Auto) 3.4 % (3.0-13.0) Eosinophils (%) (Auto) 0.0 % (0.0-8.0) Basophils (%) (Auto) 0.2 % (0.0-5.0) Neutrophils # (Auto) 9.6 K/uL (1.8-7.7) Lymphocytes # (Auto) 0.8 K/uL (1.0-4.8) Monocytes # (Auto) 0.4 K/uL (0.1-1.0) Eosinophils # (Auto) 0.00 K/uL (0.00-0.70) Basophils # (Auto) 0.02 K/uL (0.00-0.20) Absolute Immature Granulocyte (auto 0.63 K/uL (0-1) Nucleated Red Blood Cells 0.0 % (0.0-0.19) Sodium Level 137 mmol/L (136-145) Potassium Level 4.6 mmol/L (3.5-5.1) Chloride Level 103 mmol/L (101-111) Carbon Dioxide Level 33 mmol/L (21-32) Blood Urea Nitrogen 66 mg/dL (7-18) Creatinine 1.3 mg/dL (0.5-1.3) Glomerular Filtration Rate Calc 61 mL/min (>90) Random Glucose 234 mg/dL (70-105) Total Calcium 8.7 mg/dL (8.5-10.1) Magnesium Level 2.00 mg/dL (1.80-2.40) Total Bilirubin 0.6 mg/dL (0.2-1.0) Aspartate Amino Transf (AST/SGOT) 38 U/L (10-37) Alanine Aminotransferase (ALT/SGPT) 34 U/L (12-78) Alkaline Phosphatase 114 U/L (50-136) Total Protein 5.8 g/dL (6.0-8.3) Albumin 1.9 g/dL (3.5-5.0) Whole Blood Glucose 272 MG/DL (70-110) INPATIENT MEDS: Current Medications Medications Dose Ordered Sig/Elenita Start Time Stop Time Status Last Admin Acetaminophen 650 mg Q6H PRN 09/11/24 03:00 10/11/24 02:59 Acetaminophen 650 mg Q6H PRN 09/11/24 03:00 10/11/24 02:59 Lactulose 20 gm Q6H PRN 09/11/24 03:00 10/11/24 02:59 Docusate Sodium 100 mg BID PRN 09/11/24 03:00 10/11/24 02:59 Temazepam 15 mg HS PRN 09/11/24 03:00 10/11/24 02:59 Ondansetron HCl 4 mg Q6H PRN 09/11/24 03:00 10/11/24 02:59 Insulin Human Regular INSULIN SLIDING SCAL... ACHS 09/11/24 07:30 10/11/24 07:29 09/17/24 06:19 Sodium Chloride 1,000 mg TID 09/11/24 03:30 10/11/24 03:29 09/16/24 21:21 Vancomycin HCl 1 each AD 09/11/24 03:30 09/25/24 03:29 Ipratropium [place] 0.5 mg [id number] 09/11/24 04:00 10/11/24 03:59 09/17/24 06:19 Vancomycin HCl 750 mg Q24H 09/11/24 23:30 09/21/24 23:29 09/16/24 23:39 Metronidazole/ Sodium Chloride 500 mg Q8H 09/11/24 10:00 09/21/24 09:59 09/17/24 03:11 Insulin Glargine 10 units BID@0730,2100 09/11/24 10:30 10/11/24 10:29 09/17/24 06:17 Wound Care/ Dressing Products 1 APPL TID 09/11/24 21:00 10/11/24 20:59 09/17/24 07:50 Methylprednisolone Sodium Succinate 40 mg BID 09/13/24 21:00 10/12/24 11:59 09/17/24 07:49 Apixaban 2.5 mg BID 09/15/24 21:00 10/15/24 20:59 09/17/24 07:49 Metoprolol Tartrate 100 mg Q8H5 09/16/24 13:00 10/15/24 08:59 09/17/24 04:15 Meropenem 1 gm/ Sodium Chloride 100 ml @ 33.333 mls/ hr Q12H 09/17/24 09:00 09/23/24 13:29 09/17/24 07:50 PROBLEM LIST: (1) Hypoxia ICD Code: R09.02 - Hypoxemia (2) Bilateral pleural effusion ICD Code: J90 - Pleural effusion, not elsewhere classified (3) Elevated brain natriuretic peptide (BNP) level ICD Code: R79.89 - Other specified abnormal findings of blood chemistry (4) ADRY (acute kidney injury) ICD Code: N17.9 - Acute kidney failure, unspecified (5) Acute hypoxic respiratory failure ICD Code: J96.01 - Acute respiratory failure with hypoxia (6) Type 2 diabetes mellitus with hyperglycemia ICD Code: E11.65 - Type 2 diabetes mellitus with hyperglycemia PLAN: Acute hypoxic respiratory failure secondary to below Multifocal right lobe pneumonia-- suspect aspiration pneumonitis (+) ESBL Klebsiella pneumoniae Hyponatremia with chronic history of hyponatremia Sepsis present on admission Chronic atrial fibrillation Hyperglycemia in the setting of type 2 DM Ischemic cardiomyopathy ejection fraction of 25% post AICD Dysphagia status post PEG tube placement- non compliance with NPO status Microcytic normochromic anemia Hypertension GERD History of GI bleeding ETOH and cocaine abuse MARKOS JORGENSEN MD Sep 17, 2024 07:52
--- NOTE | 2024-09-17 08:01 | PN ---
[facility] CARDIOLOGY PROGRESS NOTE Date Patient Seen: Sep 17, 2024 Time of Visit: 07:59 Interval History: [Tele with HR 80-90s bpm since dose of metoprolol increased to q8hr last evening. However, WBC rising.] Physical Examination: GENERAL: [No acute distress.] HEAD: [Normal with no signs of head trauma.] EYES: [PERRLA, EOMI, conjunctiva and sclera normal.] ENT: [Hearing grossly intact, normal oropharynx.] NECK: [Supple without JVD. There is no tenderness, lymphadenopathy, or masses. No thyromegaly. Normal carotid upstrokes without bruits.] LUNGS: [Clear breath sounds bilaterally. No wheezes, or rhonchi.] HEART: [regular rate and rhythm. Normal S1 and S2 without mumurs, gallop or rub.] VASC: [Peripheral pulses +2 bilaterally.] ABD: [Bowel sounds normal, soft, nontender, no masses, no organomegaly. No audible bruits.] : [Not examined] LYMPH: [No lymphadenopathy noted.] EXT: [No clubbing, cyanosis or edema.] SKIN: [No rashes or lesions noted.] NEURO: [Awake, alert, and oriented x3. No focal sensory or strength deficits noted.] Laboratory: [ ] Hematology Labs: Test 09/17/24 03:36 Range/Units White Blood Count 11.4 H 4.8-10.8 K/uL Red Blood Count 3.40 L 4.50-6.20 MIL/uL Hemoglobin 9.5 L 14.0-18.0 g/dL Hematocrit 29.6 L 42-54 % Mean Corpuscular Volume 87.1 79-99 fL Mean Corpuscular Hemoglobin 27.9 27.0-33.0 pg Mean Corpuscular Hemoglobin Concent 32.1 32.0-36.0 g/dL Red Cell Distribution Width 18.1 H 11.0-15.5 % Platelet Count 144 130-400 K/uL Mean Platelet Volume 9.2 7.5-10.5 fL Immature Granulocyte % (Auto) 5.5 H 0-1 % Neutrophils (%) (Auto) 84.3 H 40.0-77.0 % Lymphocytes (%) (Auto) 6.6 L 21.0-51.0 % Monocytes (%) (Auto) 3.4 3.0-13.0 % Eosinophils (%) (Auto) 0.0 0.0-8.0 % Basophils (%) (Auto) 0.2 0.0-5.0 % Neutrophils # (Auto) 9.6 H 1.8-7.7 K/uL Lymphocytes # (Auto) 0.8 L 1.0-4.8 K/uL Monocytes # (Auto) 0.4 0.1-1.0 K/uL Eosinophils # (Auto) 0.00 0.00-0.70 K/uL Basophils # (Auto) 0.02 0.00-0.20 K/uL Absolute Immature Granulocyte (auto 0.63 0-1 K/uL Nucleated Red Blood Cells 0.0 0.0-0.19 % Chemistry Labs: Test 09/17/24 05:51 09/17/24 03:36 09/15/24 11:05 Range/Units Whole Blood Glucose 272 H 70-110 MG/DL Sodium Level 137 136-145 mmol/L Potassium Level 4.6 3.5-5.1 mmol/L Chloride Level 103 101-111 mmol/L Carbon Dioxide Level 33 H 21-32 mmol/L Blood Urea Nitrogen 66 H 7-18 mg/dL Creatinine 1.3 0.5-1.3 mg/dL Glomerular Filtration Rate Calc 61 >90 mL/min Random Glucose 234 H 70-105 mg/dL Total Calcium 8.7 8.5-10.1 mg/dL Magnesium Level 2.00 1.80-2.40 mg/dL Total Bilirubin 0.6 0.2-1.0 mg/dL Aspartate Amino Transf (AST/SGOT) 38 H 10-37 U/L Alanine Aminotransferase (ALT/SGPT) 34 12-78 U/L Alkaline Phosphatase 114 50-136 U/L Total Protein 5.8 L 6.0-8.3 g/dL Albumin 1.9 L 3.5-5.0 g/dL Bedside Glucose Comment Notified Nurse Diagnostics / Radiology: [Copy/Paste Echos/Imaging Report here] Impression and Plan: [Acute hypoxic respiratory failure secondary to below Multifocal right lobe pneumonia-- suspect aspiration pneumonitis (+) ESBL Klebsiella pneumoniae Hyponatremia with chronic history of hyponatremia Crack cocaine abuse Sepsis present on admission Uncontrolled type 2 diabetes mellitus HFrEF (EF 45-50 %) post AICD ( done years ago) Paroxysmal atrial fibrillation Dysphagia status post PEG tube placement- non compliance with NPO status Microcytic normochromic anemia Hypertension Atrial tachycardia Plan: [# Paroxysmal atrial fibrillation/Atach The patient initially presents with with shortness of breath. Patient was from the sn[facility] and has a history of aspiration which is driving his tachycardia. Patient apparently drank some water in had worsening work of breathing. Patient was found to have low oxygen saturation and hyponatremia. Sodium now 127. WBC 4.3, hemoglobin 8.2 with a platelet count of 124, Trop 89 . Patient had leaking from PEG tube and GI is planning PEG revision but was deferred due to Atach. Upon further workup the patient underwent ECG that was concerning for atrial flutter/atrial fibrillation, but on further review ECG it appears to be Atrial tachycardia. He denies any chest pain, palpitations, dyspnea or any other anginal equivalent. The patient underwent 2D echocardiogram revealed severely dilated right atrium, EF 45-50%, moderate tricuspid regurgitation, (09/11/2024)] On previous assessment the patient was actively using crack cocaine, on this admission his UDS has been negative and states hes quit drug use 09/15 increased metoprolol tartrate 50 mg every daily p.o. to bid 09/16 increased metoprolol tartrate 100 mg bid to 100 mg q8h started eliquis 2.5 mg bid; GI team confirmed ok to start Keep on telemetry and monitor/replace lytes as needed. Tachycardia driven by underlying suspected aspiration and poor PO intake #HFmidrangeEF (EF 45-50 %) post AICD ( done years ago) Ischemic cardiomyopathy During our assessment the patient appears to be euvolemic and compensated on exam He has a prior 2D echocardiogram from 06/11/2024 with EF 25-30% with repeat TTE revealing systolic recovery His latest 2D echocardiogram shows systolic recovery with an EF of 45-50%, severely dilated right atrium, moderate tricuspid regurgitation GDMT: metoprolol 100 mg q8h Thank you for this consult. Heart rate is improved since increasing metoprolol to [id number] yesterday. I will sign off. He may follow up with Dr Brian Cantrell one week after discharge. Torrie Cantrell MD ] TORRIE CANTRELL MD Sep 17, 2024 08:01
--- NOTE | 2024-09-17 12:13 | PN ---
GASTROENTEROLOGY PROGRESS NOTE Date of Consultation: Sep 17, 2024 Time of Consultation: 12:11 Events / Notes: No acute events overnight. PEG changed at bedside without difficulty. Review of Systems: CONSTITUTIONAL: No malaise or change in sensation of wellbeing. ENMT: No rhinorrhea, otorrhea, sinus pain, ear ache. CARDIOVASCULAR: No angina, palpitations, orthopnea or paroxysmal dyspnea. RESPIRATORY: No SOB. GASTROINTESTINAL: No abdominal pain, nausea, vomiting, diarrhea, hematemesis, melena or change in the patient's habitual bowel movements consistency/number. GENITOURINARY: No dysuria, hematuria or change in bladder continence. MUSCULOSKELETAL: No new muscle pain or decrease in muscular strength. No new joint swelling, redness or tenderness. SKIN: No new rash. Physical Exam: GEN: Awake, alert, oriented in person, time and place, and in no acute distress. HEENT: No sinus tenderness. Tympanic membranes were not examined. No rhinorrhea. Oral pharyngeal mucosa is pink, moist and within normal limits. Neck is supple with no cervical lymphadenopathy, thyromegaly or JVD. CHEST: Inspection, palpation and percussion of the chest were unremarkable. Lung auscultation revealed normal breath sounds bilaterally. CARDIAC: PMI is within normal limits. Heart sounds are regular. Normal S1, S2. No gallop or murmur. ABD: Soft, non-tender and not distended. No peritoneal signs on palpation. No organomegaly. Normal bowel sounds. EXT: No cyanosis or clubbing. No edema. SKIN: Intact. No rashes. JOINTS: No evidence of synovitis or acute arthritis. NEURO: Alert and oriented to name, place and person. Cranial nerve examination is unremarkable. No focal motor deficits. Normal speech. Gait is normal. Strength is normal. Vital Signs (last 8hr) Date Time Temp Pulse Resp B/P (MAP) Pulse Ox O2 Delivery O2 Flow Rate FiO2 09/17/24 11:04 93 18 N/Cannula Low lpm 1.0 24 09/17/24 11:03 93 18 09/17/24 09:16 98.8 78 20 133/71 95 Nasal Cannula 09/17/24 08:00 98 Nasal Cannula* 4 36 09/17/24 06:21 87 17 09/17/24 06:20 87 18 N/Cannula Low lpm 2.0 28 Laboratory: [ ] Laboratory: Test 09/17/24 05:51 09/17/24 03:36 09/16/24 20:45 Range/Units Whole Blood Glucose 272 H 70-110 MG/DL White Blood Count 11.4 H 4.8-10.8 K/uL Red Blood Count 3.40 L 4.50-6.20 MIL/uL Hemoglobin 9.5 L 14.0-18.0 g/dL Hematocrit 29.6 L 42-54 % Mean Corpuscular Volume 87.1 79-99 fL Mean Corpuscular Hemoglobin 27.9 27.0-33.0 pg Mean Corpuscular Hemoglobin Concent 32.1 32.0-36.0 g/dL Red Cell Distribution Width 18.1 H 11.0-15.5 % Platelet Count 144 130-400 K/uL Mean Platelet Volume 9.2 7.5-10.5 fL Immature Granulocyte % (Auto) 5.5 H 0-1 % Neutrophils (%) (Auto) 84.3 H 40.0-77.0 % Lymphocytes (%) (Auto) 6.6 L 21.0-51.0 % Monocytes (%) (Auto) 3.4 3.0-13.0 % Eosinophils (%) (Auto) 0.0 0.0-8.0 % Basophils (%) (Auto) 0.2 0.0-5.0 % Neutrophils # (Auto) 9.6 H 1.8-7.7 K/uL Lymphocytes # (Auto) 0.8 L 1.0-4.8 K/uL Monocytes # (Auto) 0.4 0.1-1.0 K/uL Eosinophils # (Auto) 0.00 0.00-0.70 K/uL Basophils # (Auto) 0.02 0.00-0.20 K/uL Absolute Immature Granulocyte (auto 0.63 0-1 K/uL Nucleated Red Blood Cells 0.0 0.0-0.19 % Sodium Level 137 136-145 mmol/L Potassium Level 4.6 3.5-5.1 mmol/L Chloride Level 103 101-111 mmol/L Carbon Dioxide Level 33 H 21-32 mmol/L Blood Urea Nitrogen 66 H 7-18 mg/dL Creatinine 1.3 0.5-1.3 mg/dL Glomerular Filtration Rate Calc 61 >90 mL/min Random Glucose 234 H 70-105 mg/dL Total Calcium 8.7 8.5-10.1 mg/dL Magnesium Level 2.00 1.80-2.40 mg/dL Total Bilirubin 0.6 0.2-1.0 mg/dL Aspartate Amino Transf (AST/SGOT) 38 H 10-37 U/L Alanine Aminotransferase (ALT/SGPT) 34 12-78 U/L Alkaline Phosphatase 114 50-136 U/L Total Protein 5.8 L 6.0-8.3 g/dL Albumin 1.9 L 3.5-5.0 g/dL Vancomycin Level Trough 19.9 # 10.0-20.0 UG/ML Current Medications Medications (Trade) Dose Ordered Sig/Elenita Route PRN Reason Start Time Stop Time Status Last Admin Dose Admin Acetaminophen (TYLenol 325MG TAB) 650 mg Q6H PRN PO FEVER/MILD PAIN LEVEL 1-3 09/11/24 03:00 10/11/24 02:59 Acetaminophen (TYLenol 650MG SUPPOSITORY) 650 mg Q6H PRN RC FEVER / MILD PAIN 1-3 IF NPO 09/11/24 03:00 10/11/24 02:59 Albuterol Sulfate (Proventil 0.083% 2.5mg/3ml) 2.5 mg [id number] IH 09/11/24 04:00 09/13/24 07:10 DC 09/13/24 06:20 2.5 MG Apixaban (EliquIS 2.5 mg) 2.5 mg BID PO 09/15/24 21:00 10/15/24 20:59 09/17/24 07:49 2.5 MG Cefepime HCl (MAXipime 1 GM vial) 1 gm Q24H IVPB 09/11/24 08:30 09/11/24 08:47 DC Dextrose 1,000 ml @ 100 mls/hr Q10H IV 09/12/24 10:00 09/12/24 14:54 DC 09/12/24 10:10 100 MLS/HR Docusate Sodium (COLace 100MG CAP) 100 mg BID PRN PO c 09/11/24 03:00 10/11/24 02:59 Insulin Glargine (LANtus 100 UNITS/ML 10 ML VIAL) 10 units BID@0730,2100 SQ 09/11/24 10:30 10/11/24 10:29 09/17/24 06:17 10 UNITS Insulin Human Regular (humuLIN R 100 UNIT/ML 3ML) INSULIN SLIDING SCAL... ACHS SQ 09/11/24 07:30 10/11/24 07:29 09/17/24 06:19 10 UNIT Ipratropium [place] (AtrovENT UD) 0.5 mg [id number] IH 09/11/24 04:00 10/11/24 03:59 09/17/24 11:03 0.5 MG Lactulose (Constulose 20gm/ 30ml Udcup) 20 gm Q6H PRN PO CONSTIPATION 09/11/24 03:00 10/11/24 02:59 Levofloxacin (LEvaquIN 500MG TAB) 250 mg DAILY PO 09/12/24 09:00 09/13/24 11:06 DC 09/13/24 10:00 250 MG Meropenem 1 gm/ Sodium Chloride 100 ml @ 33.333 mls/ hr Q12H IVPB 09/17/24 09:00 09/23/24 13:29 09/17/24 07:50 33.333 MLS/HR Meropenem 1 gm/ Sodium Chloride 100 ml @ 33.333 mls/ hr Q8H IVPB 09/13/24 11:30 09/13/24 13:34 DC Meropenem 1 gm/ Sodium Chloride 100 ml @ 33.333 mls/ hr Q8H IVPB 09/13/24 13:30 09/16/24 22:11 DC 09/16/24 21:21 33.333 MLS/HR Methylprednisolone Sodium Succinate (Solu-medROL 40MG) 40 mg BID IVP 09/13/24 21:00 10/12/24 11:59 09/17/24 07:49 40 MG Methylprednisolone Sodium Succinate (Solu-medROL 40MG) 40 mg Q8H IVP 09/12/24 12:00 09/13/24 11:06 DC 09/13/24 03:48 40 MG Methylprednisolone Sodium Succinate (Solu-medROL 40MG) 60 mg Q8H IVP 09/11/24 12:00 09/12/24 10:48 DC 09/12/24 05:34 60 MG Methylprednisolone Sodium Succinate (Solu-medROL 125MG) 60 mg Q8H IVP 09/11/24 04:00 09/11/24 08:46 DC 09/11/24 04:32 60 MG Metoprolol Tartrate (loprESSOR) 5 mg Q6H IV 09/13/24 11:30 09/14/24 14:32 DC 09/14/24 11:46 5 MG Metoprolol Tartrate (loprESSOR) 12.5 mg BID PO 09/12/24 10:00 09/13/24 07:12 DC 09/12/24 19:50 12.5 MG Metoprolol Tartrate (loprESSOR) 25 mg Q8H PO 09/13/24 07:30 09/13/24 07:44 DC Metoprolol Tartrate (loprESSOR) 25 mg Q8H PO 09/13/24 09:00 09/13/24 11:07 DC 09/13/24 10:00 25 MG Metoprolol Tartrate (loprESSOR) 50 mg BID PO 09/14/24 21:00 09/15/24 08:34 DC 09/14/24 20:46 50 MG Metoprolol Tartrate (loprESSOR) 100 mg BID PO 09/15/24 09:00 09/16/24 09:15 DC 09/16/24 08:21 100 MG Metoprolol Tartrate (loprESSOR) 100 mg Q8H5 PO 09/16/24 13:00 10/15/24 08:59 09/17/24 04:15 100 MG Metronidazole/ Sodium Chloride (flaGYL) 500 mg Q8H IV 09/11/24 10:00 09/17/24 11:53 DC 09/17/24 03:11 500 MG Ondansetron HCl (zoFRAN 4MG INJ) 4 mg Q6H PRN IVP NAUSEA/VOMITING 09/11/24 03:00 10/11/24 02:59 Piperacillin Sod/ Tazobactam Sod (Zosyn 3.375gm+NS 50ml) 3.375 gm Q12H IVPB 09/10/24 23:30 09/11/24 09:43 DC 09/11/24 00:16 3.375 GM Sodium Chloride 100 ml @ 0 mls/hr PROTOCOL IV 09/10/24 23:30 09/11/24 09:43 DC 09/10/24 23:52 999 MLS/HR Sodium Chloride 1,000 ml @ 50 mls/hr Q20H IV 09/11/24 03:30 09/12/24 09:35 DC 09/11/24 03:59 100 MLS/HR Sodium Chloride (Sodium Chloride) 1,000 mg TID PO 09/11/24 03:30 10/11/24 03:29 09/16/24 21:21 1,000 MG Temazepam (restORIL 15 MG CAP) 15 mg HS PRN PO INSOMNIA/SLEEP 09/11/24 03:00 10/11/24 02:59 Vancomycin HCl (Vancomycin 750mg) 750 mg Q24H IVPB 09/11/24 23:30 09/21/24 23:29 09/16/24 23:39 750 MG Vancomycin HCl (Vancomycin Protocol) 1 each AD IV 09/11/24 03:30 09/25/24 03:29 Wound Care/ Dressing Products (Venelex Ointment) 1 APPL TID TP 09/11/24 21:00 10/11/24 20:59 09/17/24 07:50 1 GM Diagnostics / Radiology: [COPY/PASTE HERE IF NO REPORTS PLEASE DELETE SECTION] Assessment: PEG malfunction Anemia Plan: Resume peg feedings May resume anticoagulation PINO STOCK SACK FILLER Sep 17, 2024 12:13
--- NOTE | 2024-09-17 13:33 | PN ---
[facility] PROGRESS NOTE Date Patient Seen: Sep 17, 2024 Time of Visit: 13:32 Supervising Physician: Dr. Watts Primary Care Physician: Sofy Fields Outpatient Specialists: [facility] Inpatient Consults: Tanner Rodriguez PROBLEM LIST: Acute hypoxic respiratory failure secondary to below Multifocal right lobe pneumonia-- suspect aspiration pneumonitis (+) ESBL, Klebsiella pneumoniae Hyponatremia with chronic history of hyponatremia Sepsis present on admission Chronic atrial fibrillation Hyperglycemia in the setting of type 2 DM Ischemic cardiomyopathy ejection fraction of 25% post AICD Dysphagia status post PEG tube placement- non compliance with NPO status Microcytic normochromic anemia Hypertension GERD History of GI bleeding ETOH and cocaine abuse INTERVAL HISTORY: 09/17 patient is up in the bed, feeling thirsty. He completed PT session. Otherwise no acute event overnight. On 2 L nasal cannula saturation oxygen is 95%. T-max is 98.8. Culture with the Enterococcus faecalis and the abdomen as well as Klebsiella pneumoniae and ESBL in the sputum. Antibiotic with the meropenem and vancomycin. Recommend disease specialist for antibiotic stewardship. No AFib RVR overnight. Continue Eliquis. Continue metoprolol. Decreased steroid daily. Otherwise he is stable to be transferred back to snf. REVIEW OF SYSTEMS: General: No Fever, No Chills, No Night Sweats, No Fatigue, No Malaise, No Appetite HEENT: No Head Aches, No Visual Changes, No Eye Pain, No Ear Pain, No Dysphasia, No Sinus Congestion, No Post Nasal Drip, No Sore Throat Pulmonary: Described in interval history Cardiovascular: No: Chest Pain, Palpitations, Orthopnea, Paroxysmal Noc. Dyspnea, Edema, Lt Headedness Gastrointestinal: No: Nausea, Vomiting, Abdominal Pain, Diarrhea, Constipation, Melena, Hematochezia Genitourinary: No Dysuria, No Frequency, No Incontinence, No Hematuria, No Retention Musculoskeletal: No: other, neck pain, shoulder pain, arm pain, back pain, hand pain, leg pain, foot pain Skin: No Urticaria, No Rash Neurological: No: Weakness, Numbness, Incoordination, Change in speech, Confusion, Seizures PHYSICAL EXAM: GENERAL: alert, weak, awake oriented x 3 HEENT: EOMI, Sclera non icteric, moist mucosa NECK: Supple, no JVD, trachea midline LUNGS: Crackles right lobes. NO wheezing. No tachypnea HEART: Regular rate and rhythm. Normal S1 and S2, without murmurs ABD: Abdomen soft, nontender. Bowel sounds present. PEG tube in place EXT: No clubbing cyanosis or edema NEURO: Alert and oriented to person, follows commands Vital Signs (last 8hr) Date Time Temp Pulse Resp B/P (MAP) Pulse Ox O2 Delivery O2 Flow Rate FiO2 09/17/24 12:32 98.4 82 20 121/82 95 Nasal Cannula 2.0 09/17/24 11:04 93 18 N/Cannula Low lpm 1.0 24 09/17/24 11:03 93 18 09/17/24 09:16 98.8 78 20 133/71 95 Nasal Cannula 09/17/24 08:00 98 Nasal Cannula* 4 36 09/17/24 06:21 87 17 09/17/24 06:20 87 18 N/Cannula Low lpm 2.0 28 LABS: Hematology Labs: Test 09/17/24 03:36 Range/Units White Blood Count 11.4 H 4.8-10.8 K/uL Red Blood Count 3.40 L 4.50-6.20 MIL/uL Hemoglobin 9.5 L 14.0-18.0 g/dL Hematocrit 29.6 L 42-54 % Mean Corpuscular Volume 87.1 79-99 fL Mean Corpuscular Hemoglobin 27.9 27.0-33.0 pg Mean Corpuscular Hemoglobin Concent 32.1 32.0-36.0 g/dL Red Cell Distribution Width 18.1 H 11.0-15.5 % Platelet Count 144 130-400 K/uL Mean Platelet Volume 9.2 7.5-10.5 fL Immature Granulocyte % (Auto) 5.5 H 0-1 % Neutrophils (%) (Auto) 84.3 H 40.0-77.0 % Lymphocytes (%) (Auto) 6.6 L 21.0-51.0 % Monocytes (%) (Auto) 3.4 3.0-13.0 % Eosinophils (%) (Auto) 0.0 0.0-8.0 % Basophils (%) (Auto) 0.2 0.0-5.0 % Neutrophils # (Auto) 9.6 H 1.8-7.7 K/uL Lymphocytes # (Auto) 0.8 L 1.0-4.8 K/uL Monocytes # (Auto) 0.4 0.1-1.0 K/uL Eosinophils # (Auto) 0.00 0.00-0.70 K/uL Basophils # (Auto) 0.02 0.00-0.20 K/uL Absolute Immature Granulocyte (auto 0.63 0-1 K/uL Nucleated Red Blood Cells 0.0 0.0-0.19 % Chemistry Labs: Test 09/17/24 12:15 09/17/24 03:36 Range/Units Whole Blood Glucose 212 H 70-110 MG/DL Sodium Level 137 136-145 mmol/L Potassium Level 4.6 3.5-5.1 mmol/L Chloride Level 103 101-111 mmol/L Carbon Dioxide Level 33 H 21-32 mmol/L Blood Urea Nitrogen 66 H 7-18 mg/dL Creatinine 1.3 0.5-1.3 mg/dL Glomerular Filtration Rate Calc 61 >90 mL/min Random Glucose 234 H 70-105 mg/dL Total Calcium 8.7 8.5-10.1 mg/dL Magnesium Level 2.00 1.80-2.40 mg/dL Total Bilirubin 0.6 0.2-1.0 mg/dL Aspartate Amino Transf (AST/SGOT) 38 H 10-37 U/L Alanine Aminotransferase (ALT/SGPT) 34 12-78 U/L Alkaline Phosphatase 114 50-136 U/L Total Protein 5.8 L 6.0-8.3 g/dL Albumin 1.9 L 3.5-5.0 g/dL DIAGNOSTICS / RADIOLOGY RESULTS: [ ] Disposition: per primary team Total patient care time exceeds 35 minutes excluding all procedures. NARENDRA MAZARIEGOS CONDUIT MECHANIC Sep 17, 2024 13:33
[2024-09-18] VITALS (14 sets, daily range): BP systolic 119–143; BP diastolic 73–87; PULSE 84–98; RESP 16–19; TEMP 96.8–98.9; O2SAT 93–100
--- NOTE | 2024-09-18 09:46 | PN ---
[facility] CARDIOLOGY PROGRESS NOTE Date Patient Seen: Sep 18, 2024 Time of Visit: 09:42 Interval History: No events overnight , the patient is currently rate controlled. in sinus rhythm. He denies any cardiac symptoms or anginal equivalents Physical Examination: GENERAL: [No acute distress.] HEAD: [Normal with no signs of head trauma.] EYES: [PERRLA, EOMI, conjunctiva and sclera normal.] ENT: [Hearing grossly intact, normal oropharynx.] NECK: [Supple without JVD. There is no tenderness, lymphadenopathy, or masses. No thyromegaly. Normal carotid upstrokes without bruits.] LUNGS: [Clear breath sounds bilaterally. No wheezes, or rhonchi.] HEART: [regular rate and rhythm. Normal S1 and S2 without mumurs, gallop or rub.] VASC: [Peripheral pulses +2 bilaterally.] ABD: [Bowel sounds normal, soft, nontender, no masses, no organomegaly. No audible bruits.] : [Not examined] LYMPH: [No lymphadenopathy noted.] EXT: [No clubbing, cyanosis or edema.] SKIN: [No rashes or lesions noted.] NEURO: [Awake, alert, and oriented x3. No focal sensory or strength deficits noted.] Laboratory: [ ] Hematology Labs: Test 09/17/24 03:36 Range/Units White Blood Count 11.4 H 4.8-10.8 K/uL Red Blood Count 3.40 L 4.50-6.20 MIL/uL Hemoglobin 9.5 L 14.0-18.0 g/dL Hematocrit 29.6 L 42-54 % Mean Corpuscular Volume 87.1 79-99 fL Mean Corpuscular Hemoglobin 27.9 27.0-33.0 pg Mean Corpuscular Hemoglobin Concent 32.1 32.0-36.0 g/dL Red Cell Distribution Width 18.1 H 11.0-15.5 % Platelet Count 144 130-400 K/uL Mean Platelet Volume 9.2 7.5-10.5 fL Immature Granulocyte % (Auto) 5.5 H 0-1 % Neutrophils (%) (Auto) 84.3 H 40.0-77.0 % Lymphocytes (%) (Auto) 6.6 L 21.0-51.0 % Monocytes (%) (Auto) 3.4 3.0-13.0 % Eosinophils (%) (Auto) 0.0 0.0-8.0 % Basophils (%) (Auto) 0.2 0.0-5.0 % Neutrophils # (Auto) 9.6 H 1.8-7.7 K/uL Lymphocytes # (Auto) 0.8 L 1.0-4.8 K/uL Monocytes # (Auto) 0.4 0.1-1.0 K/uL Eosinophils # (Auto) 0.00 0.00-0.70 K/uL Basophils # (Auto) 0.02 0.00-0.20 K/uL Absolute Immature Granulocyte (auto 0.63 0-1 K/uL Nucleated Red Blood Cells 0.0 0.0-0.19 % Chemistry Labs: Test 09/18/24 05:06 09/17/24 19:39 09/17/24 03:36 Range/Units Whole Blood Glucose 162 H 70-110 MG/DL Bedside Glucose Comment Notified Nurse Sodium Level 137 136-145 mmol/L Potassium Level 4.6 3.5-5.1 mmol/L Chloride Level 103 101-111 mmol/L Carbon Dioxide Level 33 H 21-32 mmol/L Blood Urea Nitrogen 66 H 7-18 mg/dL Creatinine 1.3 0.5-1.3 mg/dL Glomerular Filtration Rate Calc 61 >90 mL/min Random Glucose 234 H 70-105 mg/dL Total Calcium 8.7 8.5-10.1 mg/dL Magnesium Level 2.00 1.80-2.40 mg/dL Total Bilirubin 0.6 0.2-1.0 mg/dL Aspartate Amino Transf (AST/SGOT) 38 H 10-37 U/L Alanine Aminotransferase (ALT/SGPT) 34 12-78 U/L Alkaline Phosphatase 114 50-136 U/L Total Protein 5.8 L 6.0-8.3 g/dL Albumin 1.9 L 3.5-5.0 g/dL Diagnostics / Radiology: [Copy/Paste Echos/Imaging Report here] Impression and Plan: [Acute hypoxic respiratory failure secondary to below Multifocal right lobe pneumonia-- suspect aspiration pneumonitis (+) ESBL Klebsiella pneumoniae Hyponatremia with chronic history of hyponatremia Crack cocaine abuse Sepsis present on admission Uncontrolled type 2 diabetes mellitus HFrEF (EF 45-50 %) post AICD ( done years ago) Paroxysmal atrial fibrillation Dysphagia status post PEG tube placement- non compliance with NPO status Microcytic normochromic anemia Hypertension Atrial tachycardia Plan: [# Paroxysmal atrial fibrillation/Atach The patient initially presents with with shortness of breath. [facility] and has a history of aspiration which is driving his tachycardia. Patient apparently drank some water in had worsening work of breathing. Patient was found to have low oxygen saturation and hyponatremia. Patient had leaking from PEG tube and GI is planning PEG revision but was deferred due to Atach. Upon further workup the patient underwent ECG that was concerning for atrial flutter/atrial fibrillation, but on further review ECG it appears to be Atrial tachycardia. He denies any chest pain, palpitations, dyspnea or any other anginal equivalent. The patient underwent 2D echocardiogram revealed severely dilated right atrium, EF 45-50%, moderate tricuspid regurgitation, (09/11/2024)] On previous assessment the patient was actively using crack cocaine, on this admission his UDS has been negative and states hes quit drug use Continue metoprolol tartrate 100 mg bid to 100 mg q8h Continue eliquis 2.5 mg bid; GI team confirmed ok to start Keep on telemetry and monitor/replace lytes as needed. Tachycardia driven by underlying suspected aspiration and poor PO intake #HFmidrangeEF (EF 45-50 %) post AICD ( done years ago) Ischemic cardiomyopathy During our assessment the patient appears to be euvolemic and compensated on exam He has a prior 2D echocardiogram from 06/11/2024 with EF 25-30% with repeat TTE revealing systolic recovery His latest 2D echocardiogram shows systolic recovery with an EF of 45-50%, severely dilated right atrium, moderate tricuspid regurgitation GDMT: continue metoprolol 100 mg q8h Thank you for this consult cardiology will continue to follow along Brian Cantrell MD ] ATTESTATION BY PHYSICIAN I have seen and examined the patient, reviewed the above documentation, participated in medical decision making, made necessary modifications, and agree with the treatment plan as documented by my mid-level provider above. MD VINNIE Garcia JAMES R MD Sep 18, 2024 09:45
--- NOTE | 2024-09-18 10:51 | PN ---
GASTROENTEROLOGY PROGRESS NOTE Date of Consultation: Sep 18, 2024 Time of Consultation: 10:51 Events / Notes: No acute events overnight. PEG changed at bedside without difficulty. Review of Systems: CONSTITUTIONAL: No malaise or change in sensation of wellbeing. ENMT: No rhinorrhea, otorrhea, sinus pain, ear ache. CARDIOVASCULAR: No angina, palpitations, orthopnea or paroxysmal dyspnea. RESPIRATORY: No SOB. GASTROINTESTINAL: No abdominal pain, nausea, vomiting, diarrhea, hematemesis, melena or change in the patient's habitual bowel movements consistency/number. GENITOURINARY: No dysuria, hematuria or change in bladder continence. MUSCULOSKELETAL: No new muscle pain or decrease in muscular strength. No new joint swelling, redness or tenderness. SKIN: No new rash. Physical Exam: GEN: Awake, alert, oriented in person, time and place, and in no acute distress. HEENT: No sinus tenderness. Tympanic membranes were not examined. No rhinorrhea. Oral pharyngeal mucosa is pink, moist and within normal limits. Neck is supple with no cervical lymphadenopathy, thyromegaly or JVD. CHEST: Inspection, palpation and percussion of the chest were unremarkable. Lung auscultation revealed normal breath sounds bilaterally. CARDIAC: PMI is within normal limits. Heart sounds are regular. Normal S1, S2. No gallop or murmur. ABD: Soft, non-tender and not distended. No peritoneal signs on palpation. No organomegaly. Normal bowel sounds. EXT: No cyanosis or clubbing. No edema. SKIN: Intact. No rashes. JOINTS: No evidence of synovitis or acute arthritis. NEURO: Alert and oriented to name, place and person. Cranial nerve examination is unremarkable. No focal motor deficits. Normal speech. Gait is normal. Strength is normal. Vital Signs (last 8hr) Date Time Temp Pulse Resp B/P (MAP) Pulse Ox O2 Delivery O2 Flow Rate FiO2 09/18/24 06:25 93 18 N/A Room Air 21 09/18/24 06:24 93 18 09/18/24 03:18 96.8 93 16 132/73 92 Nasal Cannula 1.0 Laboratory: [ ] Laboratory: Test 09/18/24 05:06 09/17/24 19:39 09/17/24 03:36 09/16/24 20:45 Range/Units Whole Blood Glucose 162 H 70-110 MG/DL Bedside Glucose Comment Notified Nurse White Blood Count 11.4 H 4.8-10.8 K/uL Red Blood Count 3.40 L 4.50-6.20 MIL/uL Hemoglobin 9.5 L 14.0-18.0 g/dL Hematocrit 29.6 L 42-54 % Mean Corpuscular Volume 87.1 79-99 fL Mean Corpuscular Hemoglobin 27.9 27.0-33.0 pg Mean Corpuscular Hemoglobin Concent 32.1 32.0-36.0 g/dL Red Cell Distribution Width 18.1 H 11.0-15.5 % Platelet Count 144 130-400 K/uL Mean Platelet Volume 9.2 7.5-10.5 fL Immature Granulocyte % (Auto) 5.5 H 0-1 % Neutrophils (%) (Auto) 84.3 H 40.0-77.0 % Lymphocytes (%) (Auto) 6.6 L 21.0-51.0 % Monocytes (%) (Auto) 3.4 3.0-13.0 % Eosinophils (%) (Auto) 0.0 0.0-8.0 % Basophils (%) (Auto) 0.2 0.0-5.0 % Neutrophils # (Auto) 9.6 H 1.8-7.7 K/uL Lymphocytes # (Auto) 0.8 L 1.0-4.8 K/uL Monocytes # (Auto) 0.4 0.1-1.0 K/uL Eosinophils # (Auto) 0.00 0.00-0.70 K/uL Basophils # (Auto) 0.02 0.00-0.20 K/uL Absolute Immature Granulocyte (auto 0.63 0-1 K/uL Nucleated Red Blood Cells 0.0 0.0-0.19 % Sodium Level 137 136-145 mmol/L Potassium Level 4.6 3.5-5.1 mmol/L Chloride Level 103 101-111 mmol/L Carbon Dioxide Level 33 H 21-32 mmol/L Blood Urea Nitrogen 66 H 7-18 mg/dL Creatinine 1.3 0.5-1.3 mg/dL Glomerular Filtration Rate Calc 61 >90 mL/min Random Glucose 234 H 70-105 mg/dL Total Calcium 8.7 8.5-10.1 mg/dL Magnesium Level 2.00 1.80-2.40 mg/dL Total Bilirubin 0.6 0.2-1.0 mg/dL Aspartate Amino Transf (AST/SGOT) 38 H 10-37 U/L Alanine Aminotransferase (ALT/SGPT) 34 12-78 U/L Alkaline Phosphatase 114 50-136 U/L Total Protein 5.8 L 6.0-8.3 g/dL Albumin 1.9 L 3.5-5.0 g/dL Vancomycin Level Trough 19.9 # 10.0-20.0 UG/ML Current Medications Medications (Trade) Dose Ordered Sig/Elenita Route PRN Reason Start Time Stop Time Status Last Admin Dose Admin Acetaminophen (TYLenol 325MG TAB) 650 mg Q6H PRN PO FEVER/MILD PAIN LEVEL 1-3 09/11/24 03:00 10/11/24 02:59 Acetaminophen (TYLenol 650MG SUPPOSITORY) 650 mg Q6H PRN RC FEVER / MILD PAIN 1-3 IF NPO 09/11/24 03:00 10/11/24 02:59 Albuterol Sulfate (Proventil 0.083% 2.5mg/3ml) 2.5 mg [id number] IH 09/11/24 04:00 09/13/24 07:10 DC 09/13/24 06:20 2.5 MG Apixaban (EliquIS 2.5 mg) 2.5 mg BID PO 09/15/24 21:00 10/15/24 20:59 09/17/24 20:52 2.5 MG Cefepime HCl (MAXipime 1 GM vial) 1 gm Q24H IVPB 09/11/24 08:30 09/11/24 08:47 DC Dextrose 1,000 ml @ 100 mls/hr Q10H IV 09/12/24 10:00 09/12/24 14:54 DC 09/12/24 10:10 100 MLS/HR Docusate Sodium (COLace 100MG CAP) 100 mg BID PRN PO c 09/11/24 03:00 10/11/24 02:59 Insulin Glargine (LANtus 100 UNITS/ML 10 ML VIAL) 10 units BID@0730,2100 SQ 09/11/24 10:30 10/11/24 10:29 09/18/24 06:12 10 UNITS Insulin Human Regular (humuLIN R 100 UNIT/ML 3ML) INSULIN SLIDING SCAL... ACHS SQ 09/11/24 07:30 10/11/24 07:29 09/17/24 20:54 4 UNIT Ipratropium Rives (AtrovENT UD) 0.5 mg [id number] IH 09/11/24 04:00 10/11/24 03:59 09/18/24 06:24 0.5 MG Lactulose (Constulose 20gm/ 30ml Udcup) 20 gm Q6H PRN PO CONSTIPATION 09/11/24 03:00 10/11/24 02:59 Levofloxacin (LEvaquIN 500MG TAB) 250 mg DAILY PO 09/12/24 09:00 09/13/24 11:06 DC 09/13/24 10:00 250 MG Meropenem 1 gm/ Sodium Chloride 100 ml @ 33.333 mls/ hr Q12H IVPB 09/17/24 09:00 09/23/24 13:29 09/17/24 20:52 33.333 MLS/HR Meropenem 1 gm/ Sodium Chloride 100 ml @ 33.333 mls/ hr Q8H IVPB 09/13/24 11:30 09/13/24 13:34 DC Meropenem 1 gm/ Sodium Chloride 100 ml @ 33.333 mls/ hr Q8H IVPB 09/13/24 13:30 09/16/24 22:11 DC 09/16/24 21:21 33.333 MLS/HR Methylprednisolone Sodium Succinate (Solu-medROL 40MG) 40 mg BID IVP 09/13/24 21:00 09/17/24 13:32 DC 09/17/24 07:49 40 MG Methylprednisolone Sodium Succinate (Solu-medROL 40MG) 40 mg DAILY IVP 09/18/24 09:00 10/12/24 11:59 Methylprednisolone Sodium Succinate (Solu-medROL 40MG) 40 mg Q8H IVP 09/12/24 12:00 09/13/24 11:06 DC 09/13/24 03:48 40 MG Methylprednisolone Sodium Succinate (Solu-medROL 40MG) 60 mg Q8H IVP 09/11/24 12:00 09/12/24 10:48 DC 09/12/24 05:34 60 MG Methylprednisolone Sodium Succinate (Solu-medROL 125MG) 60 mg Q8H IVP 09/11/24 04:00 09/11/24 08:46 DC 09/11/24 04:32 60 MG Metoprolol Tartrate (loprESSOR) 5 mg Q6H IV 09/13/24 11:30 09/14/24 14:32 DC 09/14/24 11:46 5 MG Metoprolol Tartrate (loprESSOR) 12.5 mg BID PO 09/12/24 10:00 09/13/24 07:12 DC 09/12/24 19:50 12.5 MG Metoprolol Tartrate (loprESSOR) 25 mg Q8H PO 09/13/24 07:30 09/13/24 07:44 DC Metoprolol Tartrate (loprESSOR) 25 mg Q8H PO 09/13/24 09:00 09/13/24 11:07 DC 09/13/24 10:00 25 MG Metoprolol Tartrate (loprESSOR) 50 mg BID PO 09/14/24 21:00 09/15/24 08:34 DC 09/14/24 20:46 50 MG Metoprolol Tartrate (loprESSOR) 100 mg BID PO 09/15/24 09:00 09/16/24 09:15 DC 09/16/24 08:21 100 MG Metoprolol Tartrate (loprESSOR) 100 mg Q8H5 PO 09/16/24 13:00 10/15/24 08:59 09/18/24 05:55 100 MG Metronidazole/ Sodium Chloride (flaGYL) 500 mg Q8H IV 09/11/24 10:00 09/17/24 11:53 DC 09/17/24 03:11 500 MG Ondansetron HCl (zoFRAN 4MG INJ) 4 mg Q6H PRN IVP NAUSEA/VOMITING 09/11/24 03:00 10/11/24 02:59 Piperacillin Sod/ Tazobactam Sod (Zosyn 3.375gm+NS 50ml) 3.375 gm Q12H IVPB 09/10/24 23:30 09/11/24 09:43 DC 09/11/24 00:16 3.375 GM Sodium Chloride 100 ml @ 0 mls/hr PROTOCOL IV 09/10/24 23:30 09/11/24 09:43 DC 09/10/24 23:52 999 MLS/HR Sodium Chloride 1,000 ml @ 50 mls/hr Q20H IV 09/11/24 03:30 09/12/24 09:35 DC 09/11/24 03:59 100 MLS/HR Sodium Chloride (Sodium Chloride) 1,000 mg TID PO 09/11/24 03:30 10/11/24 03:29 09/17/24 20:52 1,000 MG Temazepam (restORIL 15 MG CAP) 15 mg HS PRN PO INSOMNIA/SLEEP 09/11/24 03:00 10/11/24 02:59 Vancomycin HCl (Vancomycin 750mg) 750 mg Q24H IVPB 09/11/24 23:30 09/21/24 23:29 09/17/24 23:43 750 MG Vancomycin HCl (Vancomycin Protocol) 1 each AD IV 09/11/24 03:30 09/25/24 03:29 Wound Care/ Dressing Products (Venelex Ointment) 1 APPL TID TP 09/11/24 21:00 10/11/24 20:59 09/17/24 21:38 1 GM Diagnostics / Radiology: [COPY/PASTE HERE IF NO REPORTS PLEASE DELETE SECTION] Assessment: PEG malfunction Anemia Plan: Resume peg feedings May resume anticoagulation [employer] DES[employer] Sep 18, 2024 10:51
[2024-09-18] MEDS: Solu-medROL 40MG VIAL IVP SCH (11:15)
[2024-09-18] MEDS: acetaMINOPHEN 325 MG TAB PO PRN (11:25)
[2024-09-18 11:38] LABS: HEMOGLOBIN A1C 6.3 % (4.0-6.0)
--- NOTE | 2024-09-18 12:38 | PN ---
[facility] PROGRESS NOTE Date Patient Seen: Sep 18, 2024 Time of Visit: 12:38 Supervising Physician: Ignacio Gallardo MD Primary Care Physician: Sofy Fields Outpatient Specialists: [facility] Inpatient Consults: Tanner Rodriguez PROBLEM LIST: Acute hypoxic respiratory failure secondary to below, resolving Multifocal right lobe pneumonia-- suspect aspiration pneumonitis (+) ESBL, Klebsiella pneumoniae Hyponatremia with chronic history of hyponatremia Sepsis present on admission Chronic atrial fibrillation Hyperglycemia in the setting of type 2 DM Ischemic cardiomyopathy ejection fraction of 25% post AICD Dysphagia status post PEG tube placement- non compliance with NPO status Microcytic normochromic anemia Hypertension GERD History of GI bleeding ETOH and cocaine abuse INTERVAL HISTORY: 09/17 patient is up in the bed, feeling thirsty. He completed PT session. Otherwise no acute event overnight. On 2 L nasal cannula saturation oxygen is 95%. T-max is 98.8. Culture with the Enterococcus faecalis and the abdomen as well as Klebsiella pneumoniae and ESBL in the sputum. Antibiotic with the meropenem and vancomycin. Recommend disease specialist for antibiotic [facility]. No AFib RVR overnight. Continue Eliquis. Continue metoprolol. Decreased steroid daily. Otherwise he is stable to be transferred back to snf. 09/18-patient is awake alert and oriented times 3. He is hemodynamically stable afebrile saturating 96% on room air with respiratory rate of 19 and unlabored. Patient denies any chest pain, shortness of breath or palpitations. He reports good urine output. No new labs this morning. Patient continues on meropenem and vancomycin. Patient is pending [facility] facility placement. REVIEW OF SYSTEMS: General: No Fever, No Chills, No Night Sweats, No Fatigue, No Malaise, No Appetite HEENT: No Head Aches, No Visual Changes, No Eye Pain, No Ear Pain, No Dysphasia, No Sinus Congestion, No Post Nasal Drip, No Sore Throat Pulmonary: Described in interval history Cardiovascular: No: Chest Pain, Palpitations, Orthopnea, Paroxysmal Noc. Dyspnea, Edema, Lt Headedness Gastrointestinal: No: Nausea, Vomiting, Abdominal Pain, Diarrhea, Constipation, Melena, Hematochezia Genitourinary: No Dysuria, No Frequency, No Incontinence, No Hematuria, No Retention Musculoskeletal: No: other, neck pain, shoulder pain, arm pain, back pain, hand pain, leg pain, foot pain Skin: No Urticaria, No Rash Neurological: No: Weakness, Numbness, Incoordination, Change in speech, Confusion, Seizures PHYSICAL EXAM: GENERAL: alert, weak, awake oriented x 3 HEENT: EOMI, Sclera non icteric, moist mucosa NECK: Supple, no JVD, trachea midline LUNGS: Clear breath sounds to all lobes. NO wheezing. No tachypnea HEART: Regular rate and rhythm. Normal S1 and S2, without murmurs ABD: Abdomen soft, nontender. Bowel sounds present. PEG tube in place EXT: No clubbing cyanosis or edema NEURO: Alert and oriented to person, follows commands Vital Signs (last 8hr) Date Time Temp Pulse Resp B/P (MAP) Pulse Ox O2 Delivery O2 Flow Rate FiO2 09/18/24 11:09 91 18 N/A Room Air 09/18/24 11:08 91 18 09/18/24 06:25 93 18 N/A Room Air 09/18/24 06:24 93 18 LABS: Hematology Labs: Test 09/17/24 03:36 Range/Units White Blood Count 11.4 H 4.8-10.8 K/uL Red Blood Count 3.40 L 4.50-6.20 MIL/uL Hemoglobin 9.5 L 14.0-18.0 g/dL Hematocrit 29.6 L 42-54 % Mean Corpuscular Volume 87.1 79-99 fL Mean Corpuscular Hemoglobin 27.9 27.0-33.0 pg Mean Corpuscular Hemoglobin Concent 32.1 32.0-36.0 g/dL Red Cell Distribution Width 18.1 H 11.0-15.5 % Platelet Count 144 130-400 K/uL Mean Platelet Volume 9.2 7.5-10.5 fL Immature Granulocyte % (Auto) 5.5 H 0-1 % Neutrophils (%) (Auto) 84.3 H 40.0-77.0 % Lymphocytes (%) (Auto) 6.6 L 21.0-51.0 % Monocytes (%) (Auto) 3.4 3.0-13.0 % Eosinophils (%) (Auto) 0.0 0.0-8.0 % Basophils (%) (Auto) 0.2 0.0-5.0 % Neutrophils # (Auto) 9.6 H 1.8-7.7 K/uL Lymphocytes # (Auto) 0.8 L 1.0-4.8 K/uL Monocytes # (Auto) 0.4 0.1-1.0 K/uL Eosinophils # (Auto) 0.00 0.00-0.70 K/uL Basophils # (Auto) 0.02 0.00-0.20 K/uL Absolute Immature Granulocyte (auto 0.63 0-1 K/uL Nucleated Red Blood Cells 0.0 0.0-0.19 % Chemistry Labs: Test 09/18/24 05:06 09/17/24 19:39 09/17/24 03:36 Range/Units Whole Blood Glucose 162 H 70-110 MG/DL Bedside Glucose Comment Notified Nurse Sodium Level 137 136-145 mmol/L Potassium Level 4.6 3.5-5.1 mmol/L Chloride Level 103 101-111 mmol/L Carbon Dioxide Level 33 H 21-32 mmol/L Blood Urea Nitrogen 66 H 7-18 mg/dL Creatinine 1.3 0.5-1.3 mg/dL Glomerular Filtration Rate Calc 61 >90 mL/min Random Glucose 234 H 70-105 mg/dL Hemoglobin A1c 6.3 H 4.0-6.0 % Estimated Average Glucose (eAG) 134 H 70-126 mg/dL Total Calcium 8.7 8.5-10.1 mg/dL Magnesium Level 2.00 1.80-2.40 mg/dL Total Bilirubin 0.6 0.2-1.0 mg/dL Aspartate Amino Transf (AST/SGOT) 38 H 10-37 U/L Alanine Aminotransferase (ALT/SGPT) 34 12-78 U/L Alkaline Phosphatase 114 50-136 U/L Total Protein 5.8 L 6.0-8.3 g/dL Albumin 1.9 L 3.5-5.0 g/dL DIAGNOSTICS / RADIOLOGY RESULTS: [ ] Continue with the IV antibiotics with meropenem and vancomycin. Maintain O2 sats above 92% Wean steroids to prednisone 20 mg per PEG b.i.d. x5 days . Disposition: per primary team Total patient care time exceeds 35 minutes excluding all procedures. KYLIE ABDI [facility] Sep 18, 2024 12:38
--- NOTE | 2024-09-18 20:11 | PN ---
PROGRESS NOTE PROGRESS NOTE DATE OF PROGRESS NOTE: 09/18/24 SUBJECTIVE: Patient has clinically improved in terms of aspiration pneumonia with no further respiratory distress in all salt tolerating PEG feeding VITAL SIGNS Vital Signs Date Time Temp Pulse Resp B/P (MAP) Pulse Ox O2 Delivery O2 Flow Rate FiO2 09/18/24 18:49 98.2 91 16 131/76 95 09/18/24 18:44 N/A Room Air 21 09/18/24 16:00 2.0 PHYSICAL EXAM: Physical Exam Physical Exam Physical Exam Dictation General: Confused, lethargic Head/Face: Normocephalic, atraumatic Eyes: PERRL ENT: oral cavity clear Neck: Trachea midline, supple Cardiovascular: RRR, normal S1/S2, No MRGs, no JVD Respiratory: CTAB, no respiratory distress, No rales or wheezes Abdomen: Soft, non-tender, non-distended, normal bowel sounds Skin: Warm, dry, normal turgor, no rash MS/Extremity: Pulses equal Neuro: Responds to noxious stimuli, lethargic LABORATORY: Laboratory Result(s) Test 09/18/24 05:06 09/18/24 15:51 Whole Blood Glucose 162 MG/DL (70-110) 286 MG/DL (70-110) INPATIENT MEDS: Current Medications Medications Dose Ordered Sig/Elenita Start Time Stop Time Status Last Admin Acetaminophen 650 mg Q6H PRN 09/11/24 03:00 10/11/24 02:59 09/18/24 11:25 Acetaminophen 650 mg Q6H PRN 09/11/24 03:00 10/11/24 02:59 Lactulose 20 gm Q6H PRN 09/11/24 03:00 10/11/24 02:59 Docusate Sodium 100 mg BID PRN 09/11/24 03:00 10/11/24 02:59 Temazepam 15 mg HS PRN 09/11/24 03:00 10/11/24 02:59 Ondansetron HCl 4 mg Q6H PRN 09/11/24 03:00 10/11/24 02:59 Insulin Human Regular INSULIN SLIDING SCAL... ACHS 09/11/24 07:30 10/11/24 07:29 09/18/24 17:28 Sodium Chloride 1,000 mg TID 09/11/24 03:30 10/11/24 03:29 09/18/24 13:52 Vancomycin HCl 1 each AD 09/11/24 03:30 09/25/24 03:29 Ipratropium [place] 0.5 mg [id number] 09/11/24 04:00 10/11/24 03:59 09/18/24 18:43 Vancomycin HCl 750 mg Q24H 09/11/24 23:30 09/21/24 23:29 09/17/24 23:43 Insulin Glargine 10 units BID@0730,2100 09/11/24 10:30 10/11/24 10:29 09/18/24 06:12 Wound Care/ Dressing Products 1 APPL TID 09/11/24 21:00 10/11/24 20:59 09/18/24 13:55 Apixaban 2.5 mg BID 09/15/24 21:00 10/15/24 20:59 09/18/24 11:16 Metoprolol Tartrate 100 mg Q8H5 09/16/24 13:00 10/15/24 08:59 09/18/24 13:52 Meropenem 1 gm/ Sodium Chloride 100 ml @ 33.333 mls/ hr Q12H 09/17/24 09:00 09/23/24 13:29 09/18/24 11:16 Methylprednisolone Sodium Succinate 40 mg DAILY 09/18/24 09:00 10/12/24 11:59 09/18/24 11:15 PROBLEM LIST: (1) Hypoxia ICD Code: R09.02 - Hypoxemia (2) Bilateral pleural effusion ICD Code: J90 - Pleural effusion, not elsewhere classified (3) Elevated brain natriuretic peptide (BNP) level ICD Code: R79.89 - Other specified abnormal findings of blood chemistry (4) ADRY (acute kidney injury) ICD Code: N17.9 - Acute kidney failure, unspecified (5) Acute hypoxic respiratory failure ICD Code: J96.01 - Acute respiratory failure with hypoxia (6) Type 2 diabetes mellitus with hyperglycemia ICD Code: E11.65 - Type 2 diabetes mellitus with hyperglycemia PLAN: Acute hypoxic respiratory failure secondary to below Multifocal right lobe pneumonia-- suspect aspiration pneumonitis (+) ESBL Klebsiella pneumoniae Hyponatremia with chronic history of hyponatremia Sepsis present on admission Chronic atrial fibrillation Hyperglycemia in the setting of type 2 DM Ischemic cardiomyopathy ejection fraction of 25% post AICD Dysphagia status post PEG tube placement- non compliance with NPO status Microcytic normochromic anemia Hypertension GERD History of GI bleeding ETOH and cocaine abuse Discharge planning density MARKOS JORGENSEN MD Sep 18, 2024 20:11
[2024-09-19] VITALS (10 sets, daily range): BP systolic 116–127; BP diastolic 68–72; PULSE 71–93; RESP 18–24; TEMP 97.4–97.6; O2SAT 93–100
[2024-09-19 05:46] LABS: HEMATOCRIT 31.8 % (42-54); MEAN CORPUSCULAR HEMOGLOBIN 27.7 pg (27.0-33.0); MEAN CORPUSCULAR HGB CONC 32.1 g/dL (32.0-36.0); MEAN CORPUSCULAR VOLUME 86.4 fL (79-99); RED BLOOD CELL COUNT(AUTO) 3.68 MIL/uL (4.50-6.20); RED CELL DISTRIBUTION WIDTH 18.6 % (11.0-15.5); WHITE BLOOD COUNT (AUTO) 10.2 K/uL (4.8-10.8)
[2024-09-19 05:55] LABS: CREATININE 1.2 mg/dL (0.5-1.3); POTASSIUM 5.3 mmol/L (3.5-5.1)
[2024-09-19] MEDS: predniSONE 20 MG TABLET PEG SCH (09:06)
--- NOTE | 2024-09-19 09:40 | PN ---
[facility] PROGRESS NOTE Date Patient Seen: Sep 19, 2024 Time of Visit: 09:38 Interval History: No events overnight , the patient is currently rate controlled. in sinus rhythm. HR 89 bpm He denies any cardiac symptoms or anginal equivalents. No further issues for today Physical Examination: GENERAL: [No acute distress.] HEAD: [Normal with no signs of head trauma.] EYES: [PERRLA, EOMI, conjunctiva and sclera normal.] ENT: [Hearing grossly intact, normal oropharynx.] NECK: [Supple without JVD. There is no tenderness, lymphadenopathy, or masses. No thyromegaly. Normal carotid upstrokes without bruits.] LUNGS: [Clear breath sounds bilaterally. No wheezes, or rhonchi.] HEART: [regular rate and rhythm. Normal S1 and S2 without mumurs, gallop or rub.] VASC: [Peripheral pulses +2 bilaterally.] ABD: [Bowel sounds normal, soft, nontender, no masses, no organomegaly. No audible bruits.] : [Not examined] LYMPH: [No lymphadenopathy noted.] EXT: [No clubbing, cyanosis or edema.] SKIN: [No rashes or lesions noted.] NEURO: [Awake, alert, and oriented x3. No focal sensory or strength deficits noted.] Laboratory: [ ] Hematology Labs: Test 09/19/24 05:44 Range/Units White Blood Count 10.2 4.8-10.8 K/uL Red Blood Count 3.68 L 4.50-6.20 MIL/uL Hemoglobin 10.2 L 14.0-18.0 g/dL Hematocrit 31.8 L 42-54 % Mean Corpuscular Volume 86.4 79-99 fL Mean Corpuscular Hemoglobin 27.7 27.0-33.0 pg Mean Corpuscular Hemoglobin Concent 32.1 32.0-36.0 g/dL Red Cell Distribution Width 18.6 H 11.0-15.5 % Platelet Count 119 L 130-400 K/uL Mean Platelet Volume 9.8 7.5-10.5 fL Nucleated Red Blood Cells 0.0 0.0-0.19 % Chemistry Labs: Test 09/19/24 05:53 09/19/24 05:44 Range/Units Whole Blood Glucose 195 H 70-110 MG/DL Bedside Glucose Comment Protocol Initiated Sodium Level 136 136-145 mmol/L Potassium Level 5.3 H 3.5-5.1 mmol/L Chloride Level 101 101-111 mmol/L Carbon Dioxide Level 32 21-32 mmol/L Blood Urea Nitrogen 68 H 7-18 mg/dL Creatinine 1.2 0.5-1.3 mg/dL Glomerular Filtration Rate Calc 67 >90 mL/min Random Glucose 221 H 70-105 mg/dL Total Calcium 8.7 8.5-10.1 mg/dL Diagnostics / Radiology: [Copy/Paste Echos/Imaging Report here] Impression and Plan: [Acute hypoxic respiratory failure secondary to below Multifocal right lobe pneumonia-- suspect aspiration pneumonitis (+) ESBL Klebsiella pneumoniae Hyponatremia with chronic history of hyponatremia Crack cocaine abuse Sepsis present on admission Uncontrolled type 2 diabetes mellitus HFrEF (EF 45-50 %) post AICD ( done years ago) Paroxysmal atrial fibrillation Dysphagia status post PEG tube placement- non compliance with NPO status Microcytic normochromic anemia Hypertension Atrial tachycardia Plan: [# Paroxysmal atrial fibrillation/Atach The patient initially presents with with shortness of breath. Patient was from the custodial and has a history of aspiration which is driving his tachycardia. Patient apparently drank some water in had worsening work of breathing. Patient was found to have low oxygen saturation and hyponatremia. Patient had leaking from PEG tube and GI is planning PEG revision but was deferred due to Atach. Upon further workup the patient underwent ECG that was concerning for atrial flutter/atrial fibrillation, but on further review ECG it appears to be Atrial tachycardia. He denies any chest pain, palpitations, dyspnea or any other anginal equivalent. The patient underwent 2D echocardiogram revealed severely dilated right atrium, EF 45-50%, moderate tricuspid regurgitation, (09/11/2024)] On previous assessment the patient was actively using crack cocaine, on this a dmission his UDS has been negative and states hes quit drug use Continue metoprolol tartrate 100 mg bid to 100 mg q8h Continue eliquis 2.5 mg bid; GI team confirmed ok to start Keep on telemetry and monitor/replace lytes as needed. Tachycardia driven by underlying suspected aspiration and poor PO intake #HFmidrangeEF (EF 45-50 %) post AICD ( done years ago) Ischemic cardiomyopathy During our assessment the patient appears to be euvolemic and compensated on exam He has a prior 2D echocardiogram from 06/11/2024 with EF 25-30% with repeat TTE revealing systolic recovery His latest 2D echocardiogram shows systolic recovery with an EF of 45-50%, severely dilated right atrium, moderate tricuspid regurgitation GDMT: continue metoprolol 100 mg q8h Thank you for this consult cardiology will sign off at this time the patient will follow up at clinic 1-2 weeks after discharge Brian Cantrell MD ] ATTESTATION BY PHYSICIAN I have seen and examined the patient, reviewed the above documentation, participated in medical decision making, made necessary modifications, and agree with the treatment plan as documented by my mid-level provider above. MD VININE Garcia JAMES R MD Sep 19, 2024 09:40
--- NOTE | 2024-09-19 11:28 | PN ---
GASTROENTEROLOGY PROGRESS NOTE Date of Consultation: Sep 19, 2024 Time of Consultation: 11:28 Events / Notes: No acute events overnight. PEG changed at bedside without difficulty. Review of Systems: CONSTITUTIONAL: No malaise or change in sensation of wellbeing. ENMT: No rhinorrhea, otorrhea, sinus pain, ear ache. CARDIOVASCULAR: No angina, palpitations, orthopnea or paroxysmal dyspnea. RESPIRATORY: No SOB. GASTROINTESTINAL: No abdominal pain, nausea, vomiting, diarrhea, hematemesis, melena or change in the patient's habitual bowel movements consistency/number. GENITOURINARY: No dysuria, hematuria or change in bladder continence. MUSCULOSKELETAL: No new muscle pain or decrease in muscular strength. No new joint swelling, redness or tenderness. SKIN: No new rash. Physical Exam: GEN: Awake, alert, oriented in person, time and place, and in no acute distress. HEENT: No sinus tenderness. Tympanic membranes were not examined. No rhinorrhea. Oral pharyngeal mucosa is pink, moist and within normal limits. Neck is supple with no cervical lymphadenopathy, thyromegaly or JVD. CHEST: Inspection, palpation and percussion of the chest were unremarkable. Lung auscultation revealed normal breath sounds bilaterally. CARDIAC: PMI is within normal limits. Heart sounds are regular. Normal S1, S2. No gallop or murmur. ABD: Soft, non-tender and not distended. No peritoneal signs on palpation. No organomegaly. Normal bowel sounds. EXT: No cyanosis or clubbing. No edema. SKIN: Intact. No rashes. JOINTS: No evidence of synovitis or acute arthritis. NEURO: Alert and oriented to name, place and person. Cranial nerve examination is unremarkable. No focal motor deficits. Normal speech. Gait is normal. Strength is normal. Vital Signs (last 8hr) Date Time Temp Pulse Resp B/P (MAP) Pulse Ox O2 Delivery O2 Flow Rate FiO2 09/19/24 11:17 80 18 09/19/24 08:40 97.5 89 20 122/72 94 Room Air 09/19/24 06:50 77 18 N/A Room Air 21 09/19/24 06:49 77 18 09/19/24 04:14 97.3 91 18 116/68 96 Room Air Laboratory: [ ] Laboratory: Test 09/19/24 11:08 09/19/24 05:53 09/19/24 05:44 09/18/24 23:07 Range/Units Whole Blood Glucose 157 H 70-110 MG/DL Bedside Glucose Comment Protocol Initiated White Blood Count 10.2 4.8-10.8 K/uL Red Blood Count 3.68 L 4.50-6.20 MIL/uL Hemoglobin 10.2 L 14.0-18.0 g/dL Hematocrit 31.8 L 42-54 % Mean Corpuscular Volume 86.4 79-99 fL Mean Corpuscular Hemoglobin 27.7 27.0-33.0 pg Mean Corpuscular Hemoglobin Concent 32.1 32.0-36.0 g/dL Red Cell Distribution Width 18.6 H 11.0-15.5 % Platelet Count 119 L 130-400 K/uL Mean Platelet Volume 9.8 7.5-10.5 fL Nucleated Red Blood Cells 0.0 0.0-0.19 % Sodium Level 136 136-145 mmol/L Potassium Level 5.3 H 3.5-5.1 mmol/L Chloride Level 101 101-111 mmol/L Carbon Dioxide Level 32 21-32 mmol/L Blood Urea Nitrogen 68 H 7-18 mg/dL Creatinine 1.2 0.5-1.3 mg/dL Glomerular Filtration Rate Calc 67 >90 mL/min Random Glucose 221 H 70-105 mg/dL Total Calcium 8.7 8.5-10.1 mg/dL Vancomycin Level Trough 19.0 10.0-20.0 UG/ML Current Medications Medications (Trade) Dose Ordered Sig/Elenita Route PRN Reason Start Time Stop Time Status Last Admin Dose Admin Acetaminophen (TYLenol 325MG TAB) 650 mg Q6H PRN PO FEVER/MILD PAIN LEVEL 1-3 09/11/24 03:00 10/11/24 02:59 09/18/24 11:25 650 MG Acetaminophen (TYLenol 650MG SUPPOSITORY) 650 mg Q6H PRN RC FEVER / MILD PAIN 1-3 IF NPO 09/11/24 03:00 10/11/24 02:59 Albuterol Sulfate (Proventil 0.083% 2.5mg/3ml) 2.5 mg [id number] IH 09/11/24 04:00 09/13/24 07:10 DC 09/13/24 06:20 2.5 MG Apixaban (EliquIS 2.5 mg) 2.5 mg BID PO 09/15/24 21:00 10/15/24 20:59 09/19/24 09:05 2.5 MG Cefepime HCl (MAXipime 1 GM vial) 1 gm Q24H IVPB 09/11/24 08:30 09/11/24 08:47 DC Dextrose 1,000 ml @ 100 mls/hr Q10H IV 09/12/24 10:00 09/12/24 14:54 DC 09/12/24 10:10 100 MLS/HR Docusate Sodium (COLace 100MG CAP) 100 mg BID PRN PO c 09/11/24 03:00 10/11/24 02:59 Insulin Glargine (LANtus 100 UNITS/ML 10 ML VIAL) 10 units BID@0730,2100 SQ 09/11/24 10:30 10/11/24 10:29 09/19/24 06:26 10 UNITS Insulin Human Regular (humuLIN R 100 UNIT/ML 3ML) INSULIN SLIDING SCAL... ACHS SQ 09/11/24 07:30 10/11/24 07:29 09/19/24 06:30 4 UNIT Ipratropium [place] (AtrovENT UD) 0.5 mg [id number] IH 09/11/24 04:00 10/11/24 03:59 09/19/24 11:16 0.5 MG Lactulose (Constulose 20gm/ 30ml Udcup) 20 gm Q6H PRN PO CONSTIPATION 09/11/24 03:00 10/11/24 02:59 Levofloxacin (LEvaquIN 500MG TAB) 250 mg DAILY PO 09/12/24 09:00 09/13/24 11:06 DC 09/13/24 10:00 250 MG Meropenem 1 gm/ Sodium Chloride 100 ml @ 33.333 mls/ hr Q12H IVPB 09/17/24 09:00 09/23/24 13:29 09/19/24 10:37 33.333 MLS/HR Meropenem 1 gm/ Sodium Chloride 100 ml @ 33.333 mls/ hr Q8H IVPB 09/13/24 11:30 09/13/24 13:34 DC Meropenem 1 gm/ Sodium Chloride 100 ml @ 33.333 mls/ hr Q8H IVPB 09/13/24 13:30 09/16/24 22:11 DC 09/16/24 21:21 33.333 MLS/HR Methylprednisolone Sodium Succinate (Solu-medROL 40MG) 40 mg BID IVP 09/13/24 21:00 09/17/24 13:32 DC 09/17/24 07:49 40 MG Methylprednisolone Sodium Succinate (Solu-medROL 40MG) 40 mg DAILY IVP 09/18/24 09:00 09/18/24 21:21 DC 09/18/24 11:15 40 MG Methylprednisolone Sodium Succinate (Solu-medROL 40MG) 40 mg Q8H IVP 09/12/24 12:00 09/13/24 11:06 DC 09/13/24 03:48 40 MG Methylprednisolone Sodium Succinate (Solu-medROL 40MG) 60 mg Q8H IVP 09/11/24 12:00 09/12/24 10:48 DC 09/12/24 05:34 60 MG Methylprednisolone Sodium Succinate (Solu-medROL 125MG) 60 mg Q8H IVP 09/11/24 04:00 09/11/24 08:46 DC 09/11/24 04:32 60 MG Metoprolol Tartrate (loprESSOR) 5 mg Q6H IV 09/13/24 11:30 09/14/24 14:32 DC 09/14/24 11:46 5 MG Metoprolol Tartrate (loprESSOR) 12.5 mg BID PO 09/12/24 10:00 09/13/24 07:12 DC 09/12/24 19:50 12.5 MG Metoprolol Tartrate (loprESSOR) 25 mg Q8H PO 09/13/24 07:30 09/13/24 07:44 DC Metoprolol Tartrate (loprESSOR) 25 mg Q8H PO 09/13/24 09:00 09/13/24 11:07 DC 09/13/24 10:00 25 MG Metoprolol Tartrate (loprESSOR) 50 mg BID PO 09/14/24 21:00 09/15/24 08:34 DC 09/14/24 20:46 50 MG Metoprolol Tartrate (loprESSOR) 100 mg BID PO 09/15/24 09:00 09/16/24 09:15 DC 09/16/24 08:21 100 MG Metoprolol Tartrate (loprESSOR) 100 mg Q8H5 PO 09/16/24 13:00 10/15/24 08:59 09/19/24 05:10 100 MG Metronidazole/ Sodium Chloride (flaGYL) 500 mg Q8H IV 09/11/24 10:00 09/17/24 11:53 DC 09/17/24 03:11 500 MG Ondansetron HCl (zoFRAN 4MG INJ) 4 mg Q6H PRN IVP NAUSEA/VOMITING 09/11/24 03:00 10/11/24 02:59 Piperacillin Sod/ Tazobactam Sod (Zosyn 3.375gm+NS 50ml) 3.375 gm Q12H IVPB 09/10/24 23:30 09/11/24 09:43 DC 09/11/24 00:16 3.375 GM Prednisone (deltaSONE/ oraSONE 20MG TAB) 20 mg BID PEG 09/19/24 09:00 09/24/24 08:59 09/19/24 09:06 20 MG Sodium Chloride 100 ml @ 0 mls/hr PROTOCOL IV 09/10/24 23:30 09/11/24 09:43 DC 09/10/24 23:52 999 MLS/HR Sodium Chloride 1,000 ml @ 50 mls/hr Q20H IV 09/11/24 03:30 09/12/24 09:35 DC 09/11/24 03:59 100 MLS/HR Sodium Chloride (Sodium Chloride) 1,000 mg TID PO 09/11/24 03:30 10/11/24 03:29 09/19/24 09:05 1,000 MG Temazepam (restORIL 15 MG CAP) 15 mg HS PRN PO INSOMNIA/SLEEP 09/11/24 03:00 10/11/24 02:59 Vancomycin HCl (Vancomycin 750mg) 750 mg Q24H IVPB 09/11/24 23:30 09/21/24 23:29 09/19/24 00:09 750 MG Vancomycin HCl (Vancomycin Protocol) 1 each AD IV 09/11/24 03:30 09/25/24 03:29 Wound Care/ Dressing Products (Venelex Ointment) 1 APPL TID TP 09/11/24 21:00 10/11/24 20:59 09/19/24 09:14 1 GM Diagnostics / Radiology: [COPY/PASTE HERE IF NO REPORTS PLEASE DELETE SECTION] Assessment: PEG malfunction Anemia Plan: Resume peg feedings May resume anticoagulation [employer] Sep 19, 2024 11:28
--- NOTE | 2024-09-19 13:18 | PN ---
PROGRESS NOTE PROGRESS NOTE DATE OF PROGRESS NOTE: 09/19/24 SUBJECTIVE: min cough, improving VITAL SIGNS Vital Signs Date Time Temp Pulse Resp B/P (MAP) Pulse Ox O2 Delivery O2 Flow Rate FiO2 09/19/24 11:56 97.5 71 24 127/68 100 Room Air 09/19/24 06:50 21 09/18/24 21:46 0 PHYSICAL EXAM: Physical Exam Physical Exam Physical Exam Dictation General: Confused, lethargic Head/Face: Normocephalic, atraumatic Eyes: PERRL ENT: oral cavity clear Neck: Trachea midline, supple Cardiovascular: RRR, normal S1/S2, No MRGs, no JVD Respiratory: CTAB, no respiratory distress, No rales or wheezes Abdomen: Soft, non-tender, non-distended, normal bowel sounds Skin: Warm, dry, normal turgor, no rash MS/Extremity: Pulses equal Neuro: Responds to noxious stimuli, lethargic LABORATORY: Laboratory Result(s) Test 09/18/24 15:51 09/18/24 20:21 09/18/24 23:07 09/19/24 05:44 Whole Blood Glucose 286 MG/DL (70-110) 274 MG/DL (70-110) Bedside Glucose Comment Protocol Initiated Vancomycin Level Trough 19.0 UG/ML (10.0-20.0) White Blood Count 10.2 K/uL (4.8-10.8) Red Blood Count 3.68 MIL/uL (4.50-6.20) Hemoglobin 10.2 g/dL (14.0-18.0) Hematocrit 31.8 % (42-54) Mean Corpuscular Volume 86.4 fL (79-99) Mean Corpuscular Hemoglobin 27.7 pg (27.0-33.0) Mean Corpuscular Hemoglobin Concent 32.1 g/dL (32.0-36.0) Red Cell Distribution Width 18.6 % (11.0-15.5) Platelet Count 119 K/uL (130-400) Mean Platelet Volume 9.8 fL (7.5-10.5) Nucleated Red Blood Cells 0.0 % (0.0-0.19) Sodium Level 136 mmol/L (136-145) Potassium Level 5.3 mmol/L (3.5-5.1) Chloride Level 101 mmol/L (101-111) Carbon Dioxide Level 32 mmol/L (21-32) Blood Urea Nitrogen 68 mg/dL (7-18) Creatinine 1.2 mg/dL (0.5-1.3) Glomerular Filtration Rate Calc 67 mL/min (>90) Random Glucose 221 mg/dL (70-105) Total Calcium 8.7 mg/dL (8.5-10.1) Test 09/19/24 05:53 09/19/24 11:08 Whole Blood Glucose 195 MG/DL (70-110) 157 MG/DL (70-110) Bedside Glucose Comment Protocol Initiated INPATIENT MEDS: Current Medications Medications Dose Ordered Sig/Elenita Start Time Stop Time Status Last Admin Acetaminophen 650 mg Q6H PRN 09/11/24 03:00 10/11/24 02:59 09/18/24 11:25 Acetaminophen 650 mg Q6H PRN 09/11/24 03:00 10/11/24 02:59 Lactulose 20 gm Q6H PRN 09/11/24 03:00 10/11/24 02:59 Docusate Sodium 100 mg BID PRN 09/11/24 03:00 10/11/24 02:59 Temazepam 15 mg HS PRN 09/11/24 03:00 10/11/24 02:59 Ondansetron HCl 4 mg Q6H PRN 09/11/24 03:00 10/11/24 02:59 Insulin Human Regular INSULIN SLIDING SCAL... ACHS 09/11/24 07:30 10/11/24 07:29 09/19/24 06:30 Sodium Chloride 1,000 mg TID 09/11/24 03:30 10/11/24 03:29 09/19/24 09:05 Vancomycin HCl 1 each AD 09/11/24 03:30 09/25/24 03:29 Ipratropium [place] 0.5 mg [id number] 09/11/24 04:00 10/11/24 03:59 09/19/24 11:16 Vancomycin HCl 750 mg Q24H 09/11/24 23:30 09/21/24 23:29 09/19/24 00:09 Insulin Glargine 10 units BID@0730,2100 09/11/24 10:30 10/11/24 10:29 09/19/24 06:26 Wound Care/ Dressing Products 1 APPL TID 10/29/24 21:00 10/11/24 20:59 09/19/24 09:14 Apixaban 2.5 mg BID 09/15/24 21:00 10/15/24 20:59 09/19/24 09:05 Metoprolol Tartrate 100 mg Q8H5 09/16/24 13:00 10/15/24 08:59 09/19/24 05:10 Meropenem 1 gm/ Sodium Chloride 100 ml @ 33.333 mls/ hr Q12H 09/17/24 09:00 09/23/24 13:29 09/19/24 10:37 Prednisone 20 mg BID 09/19/24 09:00 09/24/24 08:59 09/19/24 09:06 PROBLEM LIST: (1) Hypoxia ICD Code: R09.02 - Hypoxemia (2) Bilateral pleural effusion ICD Code: J90 - Pleural effusion, not elsewhere classified (3) Elevated brain natriuretic peptide (BNP) level ICD Code: R79.89 - Other specified abnormal findings of blood chemistry (4) ADRY (acute kidney injury) ICD Code: N17.9 - Acute kidney failure, unspecified (5) Acute hypoxic respiratory failure ICD Code: J96.01 - Acute respiratory failure with hypoxia (6) Type 2 diabetes mellitus with hyperglycemia ICD Code: E11.65 - Type 2 diabetes mellitus with hyperglycemia PLAN: Acute hypoxic respiratory failure secondary to below Multifocal right lobe pneumonia-- suspect aspiration pneumonitis (+) ESBL Klebsiella pneumoniae Hyponatremia with chronic history of hyponatremia Sepsis present on admission Chronic atrial fibrillation Hyperglycemia in the setting of type 2 DM Ischemic cardiomyopathy ejection fraction of 25% post AICD Dysphagia status post PEG tube placement- non compliance with NPO status Microcytic normochromic anemia Hypertension GERD History of GI bleeding ETOH and cocaine abuse Discharge planning density MARKOS JORGENSEN MD Sep 19, 2024 13:18
--- NOTE | 2024-09-19 14:25 | PN ---
[facility] PROGRESS NOTE Date Patient Seen: Sep 19, 2024 Time of Visit: 14:21 Supervising Physician: Toni FAROOQ Primary Care Physician: Sofy Fields Outpatient Specialists: [facility] Inpatient Consults: Tanner Rodriguez PROBLEM LIST: Acute hypoxic respiratory failure secondary to below, resolving Multifocal right lobe pneumonia-- suspect aspiration pneumonitis (+) ESBL, Klebsiella pneumoniae Hyponatremia with chronic history of hyponatremia Sepsis present on admission Chronic atrial fibrillation Hyperglycemia in the setting of type 2 DM Ischemic cardiomyopathy ejection fraction of 25% post AICD Dysphagia status post PEG tube placement- non compliance with NPO status Microcytic normochromic anemia Hypertension GERD History of GI bleeding ETOH and cocaine abuse INTERVAL HISTORY: Patient was seen and examined today by me at bedside, the patient was lying in bed stating he continues to feel weak and deconditioned . He is status post ICU downgrade. The patient continues on IV antibiotics for multifocal pneumonia. Shortness of breath has improved. He will be dispositioned eventually to a shelter facility for continued IV antibiotic treatment, and respiratory rehab. REVIEW OF SYSTEMS: 12 Point ROS reviewed with patient and were positive only as per HPI. Pertinent + and negative listed above all others negative PHYSICAL EXAM: GENERAL: alert, weak, awake oriented x 3 HEENT: EOMI, Sclera non icteric, moist mucosa NECK: Supple, no JVD, trachea midline LUNGS: Clear breath sounds to all lobes. NO wheezing. No tachypnea HEART: Regular rate and rhythm. Normal S1 and S2, without murmurs ABD: Abdomen soft, nontender. Bowel sounds present. PEG tube in place EXT: No clubbing cyanosis or edema NEURO: Alert and oriented to person, follows commands Vital Signs (last 8hr) Date Time Temp Pulse Resp B/P (MAP) Pulse Ox O2 Delivery O2 Flow Rate FiO2 09/19/24 11:56 97.5 71 24 127/68 100 Room Air 09/19/24 11:17 80 18 09/19/24 08:40 97.5 89 20 122/72 94 Room Air 09/19/24 08:00 100 Room Air* 0 21 09/19/24 06:50 77 18 N/A Room Air 09/19/24 06:49 77 18 LABS: Hematology Labs: Test 09/19/24 05:44 Range/Units White Blood Count 10.2 4.8-10.8 K/uL Red Blood Count 3.68 L 4.50-6.20 MIL/uL Hemoglobin 10.2 L 14.0-18.0 g/dL Hematocrit 31.8 L 42-54 % Mean Corpuscular Volume 86.4 79-99 fL Mean Corpuscular Hemoglobin 27.7 27.0-33.0 pg Mean Corpuscular Hemoglobin Concent 32.1 32.0-36.0 g/dL Red Cell Distribution Width 18.6 H 11.0-15.5 % Platelet Count 119 L 130-400 K/uL Mean Platelet Volume 9.8 7.5-10.5 fL Nucleated Red Blood Cells 0.0 0.0-0.19 % Chemistry Labs: Test 09/19/24 11:08 09/19/24 05:53 09/19/24 05:44 Range/Units Whole Blood Glucose 157 H 70-110 MG/DL Bedside Glucose Comment Protocol Initiated Sodium Level 136 136-145 mmol/L Potassium Level 5.3 H 3.5-5.1 mmol/L Chloride Level 101 101-111 mmol/L Carbon Dioxide Level 32 21-32 mmol/L Blood Urea Nitrogen 68 H 7-18 mg/dL Creatinine 1.2 0.5-1.3 mg/dL Glomerular Filtration Rate Calc 67 >90 mL/min Random Glucose 221 H 70-105 mg/dL Total Calcium 8.7 8.5-10.1 mg/dL DIAGNOSTICS / RADIOLOGY RESULTS: [ ] Continue with the IV antibiotics with meropenem and vancomycin. Maintain O2 sats above 92% Wean steroids to prednisone 20 mg per PEG b.i.d. x5 days . Disposition: per primary team ANABELA ULLOA Sep 19, 2024 14:25
[2024-09-19] MEDS: BUDESONIDE 0.5 MG/2 ML INH IH ONE (18:48)
== END 2024-09-19 20:05 | DRG 871 ==
LOC: EDH 22:00 → EDHIP 09-11 00:22 → 2BH 09-11 01:18 → 2AH 09-12 14:17 → 3DH 09-18 18:30
PROVIDERS: ADMIT Internal Medicine; ATTEND Internal Medicine
PROC: 5A0935A Assistance with Respiratory Ventilation, Less than 24 Consecutive Hours, High Flow/Velocity Cannula (ICD-10-PCS; principal; 2024-09-12)
DX: A41.9 Sepsis, unspecified organism (principal); J69.0 Pneumonitis due to inhalation of food and vomit; J96.01 Acute respiratory failure with hypoxia; K94.23 Gastrostomy malfunction; I48.20 Chronic atrial fibrillation, unspecified; N17.9 Acute kidney failure, unspecified; I47.19 Other supraventricular tachycardia; I50.22 Chronic systolic (congestive) heart failure; D50.9 Iron deficiency anemia, unspecified; G47.00 Insomnia, unspecified; K21.9 Gastro-esophageal reflux disease without esophagitis; R13.10 Dysphagia, unspecified; E58 Dietary calcium deficiency; E11.51 Type 2 diabetes mellitus with diabetic peripheral angiopathy without gangrene; E78.00 Pure hypercholesterolemia, unspecified; I11.0 Hypertensive heart disease with heart failure; F10.20 Alcohol dependence, uncomplicated; D64.9 Anemia, unspecified; I25.5 Ischemic cardiomyopathy; F14.10 Cocaine abuse, uncomplicated; I48.0 Paroxysmal atrial fibrillation; E11.65 Type 2 diabetes mellitus with hyperglycemia; Y83.3 Surgical operation with formation of external stoma as the cause of abnormal reaction of the patient, or of later complication, without mention of misadventure at the time of the procedure; Y73.2 Prosthetic and other implants, materials and accessory gastroenterology and urology devices associated with adverse incidents; I07.1 Rheumatic tricuspid insufficiency; Z91.199 Patient's noncompliance with other medical treatment and regimen due to unspecified reason; Z95.810 Presence of automatic (implantable) cardiac defibrillator; Z79.01 Long term (current) use of anticoagulants; Z87.891 Personal history of nicotine dependence
CPT/HCPCS: 36415; 36600; 71045; 74176; 80048; 80053; 80202; 80305; 81001; 82306; 82435; 82550; 82570; 82607; 82803; 82947; 82948; 83036; 83605; 83735; 83880; 83930; 83935; 84100; 84132; 84145; 84295; 84300; 84484; 85018; 85025; 85027; 87070; 87071; 87086; 87186; 87205; 87635; 87641; 87804; 93005; 93306; 93356; 94640; 94664; 96365; A4344; G0378; J1815; J2185; J2543; J2919; J3370; J3490